=== PATIENT | male | born 1990 | race Caucasian/White ===

== ENCOUNTER 2017-08-21 11:17 | Emergency (ER) | payer OTHER | END 2017-08-21 18:30 | disposition home or self-care (01) | LOC: FTE 11:17 | DX: T82.898A Other specified complication of vascular prosthetic devices, implants and grafts, initial encounter (principal); F17.210 Nicotine dependence, cigarettes, uncomplicated; Y82.8 Other medical devices associated with adverse incidents | CPT/HCPCS: 71045; 99283-25 ==

== ENCOUNTER 2017-08-24 10:18 | Emergency (ER) | payer OTHER ==
[2017-08-24] MEDS: LIDOCAINE 1% (MPF) 5 ML VIAL SC (14:16)
[2017-08-24] MEDS: ENOXAPARIN 100 MG/ML SYG SC (16:45)
== END 2017-08-24 18:04 | disposition home or self-care (01) ==
LOC: FTE 10:18 → E/R 18:04
DX: I82.A11 Acute embolism and thrombosis of right axillary vein (principal); F17.210 Nicotine dependence, cigarettes, uncomplicated; Y82.8 Other medical devices associated with adverse incidents; Z79.01 Long term (current) use of anticoagulants
CPT/HCPCS: 93971; 99284-25

== ENCOUNTER 2017-08-29 14:31 | Inpatient (IN) | payer OTHER ==
[2017-08-29] MEDS: HYDROCODONE/APAP (5/325) TAB PO (19:00)
[2017-08-29] MEDS: MEROPENEM 1 GM/50ML(PMX) 50 ML IVPB (21:27)
[2017-08-29] MEDS: SODIUM CHLORIDE 0.9% 1L BAG IV* (21:27)
[2017-08-29 21:28] LABS: ADD MAN DIFF? NO
[2017-08-29 21:31] LABS: ABNORMAL IP MESSAGE 1; BASOPHILS % 0.3 % (0.0-2.0); EOSINOPHILS # 0.1 10^3/ul (0.0-0.5); EOSINOPHILS % 1.8 % (0.0-7.0); HEMATOCRIT 39.4 % (42.0-52.0); HEMOGLOBIN 12.3 g/dl (14.0-18.0); LYMPHOCYTES # 2.1 10^3/ul (0.8-2.9); MEAN CORPUSCULAR HEMOGLOBIN 26.1 pg (29.0-33.0); MEAN CORPUSCULAR HGB CONC 31.2 g/dl (32.0-37.0); MEAN CORPUSCULAR VOLUME 83.5 fl (82.0-101.0); MEAN PLATELET VOLUME 9.4 fl (7.4-10.4); MONOCYTE # 0.8 10^3/ul (0.3-0.9); NEUTROPHIL # 0.9 10^3/ul (1.6-7.5); NEUTROPHILS % 23.5 % (39.0-77.0); PLATELET COUNT 288 10^3/UL (140-415); POSITIVE DIFF @See below; RED BLOOD COUNT 4.72 10^6/ul (4.70-6.10); RED CELL DISTRIBUTION WIDTH 15.2 % (11.5-14.5)
[2017-08-29 21:31] LABS: WHITE BLOOD COUNT 3.9 10^3/ul (4.8-10.8)
[2017-08-29 21:37] LABS: LYMPHOCYTES % 54.2 % (15.0-51.0); MONOCYTES % 19.9 % (0.0-11.0)
[2017-08-29 21:55] LABS: ALANINE AMINOTRANSFERASE 32 IU/L (13-69); ALBUMIN 3.5 g/dl (3.3-4.9); ALBUMIN/GLOBULIN RATIO 0.74; ALKALINE PHOSPHATASE 132 IU/L (42-121); ANION GAP 14 (8-16); ASPARTATE AMINO TRANSFERASE 26 IU/L (15-46); BILIRUBIN,INDIRECT 0.4 mg/dl (0-1.1); BILIRUBIN,TOTAL 0.4 mg/dl (0.2-1.3); BLOOD UREA NITROGEN 12 mg/dl (7-20); CALCIUM 8.6 mg/dl (8.4-10.2); CARBON DIOXIDE 27 mmol/L (21-31); CHLORIDE 102 mmol/L (97-110); CREATININE 0.62 mg/dl (0.61-1.24); GLUCOSE 107 mg/dl (70-220); SODIUM 140 mmol/L (135-144); TOTAL PROTEIN 8.2 g/dl (6.1-8.1)
[2017-08-29] MEDS ORDERED: ACETAMINOPHEN 325 MG TAB PO (22:00)
[2017-08-29 22:16] LABS: POTASSIUM 2.9 mmol/L (3.5-5.1)
[2017-08-29] MEDS: HYDROCODONE/APAP (10/325) TAB PO (22:17)
[2017-08-29] MEDS: POTASSIUM CHLORIDE (SR) 20 MEQ TAB PO (22:39)
[2017-08-29] MEDS: VANCOMYCIN 1 GM (PMX) 250 ML IVPB (22:39)
[2017-08-30] MEDS ORDERED: VANCOMYCIN IV PER PHARMACY XX
[2017-08-30] MEDS: morphine 2 MG INJ IV ×4 (00:01→10:41)
[2017-08-30] MEDS: ONDANSETRON 4 MG INJ IV (00:01)
[2017-08-30] MEDS ORDERED: PENDING SANTYL ORDER FOR WOUND CARE XX (01:00)
[2017-08-30] MEDS: VANCOMYCIN 1 GM 250 ML IVPB (05:25)
[2017-08-30] MEDS: GUAIFENESIN/CODEINE 5ML CUP PO (10:41)
[2017-08-30] MEDS: HYDROmorphONE 1 MG/ML SYG IV ×4 (13:16→21:58)
[2017-08-30] MEDS: VANCOMYCIN 1.25 GM in SOD CHLORIDE 0.45% 250 ML IVPB (17:04)
[2017-08-30] MEDS: HYDROmorphONE 0.5 MG/0.5 ML SYG IV (19:53)
[2017-08-31] MEDS: HYDROmorphONE 1 MG/ML SYG IV ×10 (00:09→22:27)
[2017-08-31] MEDS ORDERED: COLLAGENASE 30 GM TUBE TOP (03:00)
[2017-08-31] MEDS: VANCOMYCIN 1.25 GM in SOD CHLORIDE 0.45% 250 ML IVPB (04:43)
[2017-08-31] MEDS: COLLAGENASE 30 GM TUBE TOP (09:00)
[2017-08-31] MEDS ORDERED: ENOXAPARIN 100 MG/ML SYG SC (12:00)
[2017-08-31] MEDS ORDERED: oxyCODONE 5 MG TAB PO (14:30)
[2017-08-31] MEDS ORDERED: HYDROCODONE/APAP (5/325) TAB PO (16:00)
[2017-08-31] MEDS ORDERED: morphine 2 MG INJ IV (16:00)
[2017-08-31] MEDS ORDERED: morphine LIQ (10 MG/5 ML) CUP PO (16:00)
[2017-08-31] MEDS ORDERED: LIDOCAINE 1% (MPF) 5 ML VIAL SC (16:30)
[2017-08-31] MEDS: ZYVOX 600 MG TAB PO (20:57)
[2017-08-31] MEDS: ENOXAPARIN 80 MG/0.8 ML SYG SC (21:00)
[2017-09-01] MEDS: HYDROmorphONE 1 MG/ML SYG IV ×6 (02:33→22:57)
[2017-09-01] MEDS: ZYVOX 600 MG TAB PO ×2 (08:57→20:41)
[2017-09-01] MEDS: ENOXAPARIN 80 MG/0.8 ML SYG SC ×2 (08:59→20:41)
[2017-09-01] MEDS: COLLAGENASE 30 GM TUBE TOP ×2 (09:00→15:30)
[2017-09-01] MEDS: GUAIFENESIN/CODEINE 5ML CUP PO (18:54)
[2017-09-02] MEDS: HYDROmorphONE 1 MG/ML SYG IV ×6 (03:11→23:33)
[2017-09-02] MEDS: COLLAGENASE 30 GM TUBE TOP ×2 (09:00→12:35)
[2017-09-02] MEDS: ENOXAPARIN 80 MG/0.8 ML SYG SC ×3 (09:00→22:17)
[2017-09-02] MEDS: ZYVOX 600 MG TAB PO ×2 (09:05→22:18)
[2017-09-02] MEDS: GUAIFENESIN/CODEINE 5ML CUP PO ×2 (12:46→23:35)
[2017-09-02] MEDS: NYSTATIN 30 GM POWDER BTL TOP (22:17)
[2017-09-03] MEDS: HYDROmorphONE 1 MG/ML SYG IV ×5 (03:25→22:04)
[2017-09-03] MEDS: ENOXAPARIN 80 MG/0.8 ML SYG SC ×2 (08:16→21:00)
[2017-09-03] MEDS: NYSTATIN 30 GM POWDER BTL TOP ×2 (08:16→22:08)
[2017-09-03] MEDS: ZYVOX 600 MG TAB PO ×2 (08:16→22:08)
[2017-09-03] MEDS: COLLAGENASE 30 GM TUBE TOP (08:17)
[2017-09-03] MEDS ORDERED: MIDAZOLAM 1 MG/ML 2 ML INJ (20:44)
[2017-09-03] MEDS ORDERED: ONDANSETRON 4 MG INJ (20:45)
[2017-09-03] MEDS ORDERED: hydrALAzine 20 MG INJ IV (21:00)
[2017-09-03] MEDS ORDERED: IPRATROPIUM (NEB) 0.5 MG/2.5 ML AMP HHN (21:00)
[2017-09-03] MEDS ORDERED: ALBUTEROL 0.083% (NEB) 2.5 MG/3 ML AMP HHN (21:00)
[2017-09-03] MEDS ORDERED: LABETALOL HCL 20MG INJ IV (21:00)
[2017-09-03] MEDS ORDERED: EPHEDrine SULFATE 50 MG/5 ML SYG IV (21:00)
[2017-09-03] MEDS ORDERED: MIDAZOLAM 1 MG/ML 2 ML INJ IV (21:00)
[2017-09-03] MEDS ORDERED: ONDANSETRON 4 MG INJ IV (21:00)
[2017-09-03] MEDS ORDERED: HYDROmorphONE (0.2 MG/ML) 10ML SYG IV ×3 (21:00)
[2017-09-03] MEDS ORDERED: TRIMETHOBENZAMIDE 100 MG/ML VIAL IM (21:00)
[2017-09-03] MEDS ORDERED: DIPHENHYDRAMINE 50 MG INJ IV (21:00)
[2017-09-03] MEDS ORDERED: FENTAnyl 50 MCG/ML VIAL IV ×2 (21:00)
[2017-09-03] MEDS ORDERED: MEPERIDINE 25 MG INJ IV (21:00)
[2017-09-03] MEDS: POLYMYXIN/BACITRACIN 1L IRRIG (21:08)
[2017-09-03] MEDS: FENTAnyl 50 MCG/ML VIAL IV (21:36)
[2017-09-04] MEDS: HYDROmorphONE 1 MG/ML SYG IV ×5 (06:45→22:40)
[2017-09-04] MEDS: ZYVOX 600 MG TAB PO ×2 (08:20→22:39)
[2017-09-04] MEDS: NYSTATIN 30 GM POWDER BTL TOP ×2 (08:24→22:40)
[2017-09-04] MEDS: COLLAGENASE 30 GM TUBE TOP (09:00)
[2017-09-04] MEDS: ENOXAPARIN 80 MG/0.8 ML SYG SC ×2 (09:00→21:00)
[2017-09-04] MEDS: GUAIFENESIN/CODEINE 5ML CUP PO ×2 (12:13→18:44)
[2017-09-05] MEDS: HYDROmorphONE 1 MG/ML SYG IV ×6 (02:40→22:36)
[2017-09-05] MEDS: ZYVOX 600 MG TAB PO ×2 (08:57→21:07)
[2017-09-05] MEDS: GUAIFENESIN/CODEINE 5ML CUP PO ×2 (08:58→21:06)
[2017-09-05] MEDS: ENOXAPARIN 80 MG/0.8 ML SYG SC ×2 (08:59→21:00)
[2017-09-05] MEDS: COLLAGENASE 30 GM TUBE TOP (09:00)
[2017-09-05] MEDS: NYSTATIN 30 GM POWDER BTL TOP ×2 (14:00→21:08)
[2017-09-05] MEDS ORDERED: BISACODYL (EC) 5 MG TAB PO (18:30)
[2017-09-05] MEDS ORDERED: DOCUSATE SODIUM 100 MG CAP PO (19:57)
[2017-09-05] MEDS: DOCUSATE SODIUM 100 MG CAP PO (21:00)
[2017-09-06] MEDS: HYDROmorphONE 1 MG/ML SYG IV ×6 (02:41→23:43)
[2017-09-06] MEDS: GUAIFENESIN/CODEINE 5ML CUP PO (03:02)
[2017-09-06] MEDS: COLLAGENASE 30 GM TUBE TOP ×2 (09:00→15:37)
[2017-09-06] MEDS: ENOXAPARIN 80 MG/0.8 ML SYG SC ×2 (09:00→21:00)
[2017-09-06] MEDS: DOCUSATE SODIUM 100 MG CAP PO ×2 (09:00→21:00)
[2017-09-06] MEDS: ZYVOX 600 MG TAB PO ×2 (10:00→21:47)
[2017-09-06] MEDS: NYSTATIN 30 GM POWDER BTL TOP ×2 (10:01→21:00)
[2017-09-06] MEDS: TRIMETHOPRIM/SULFAMETHOX (DS) TAB PO (21:47)
[2017-09-07] MEDS: HYDROmorphONE 1 MG/ML SYG IV ×3 (03:43→11:44)
[2017-09-07] MEDS: ZYVOX 600 MG TAB PO ×2 (08:30→20:21)
[2017-09-07] MEDS: TRIMETHOPRIM/SULFAMETHOX (DS) TAB PO ×2 (08:31→20:21)
[2017-09-07] MEDS: COLLAGENASE 30 GM TUBE TOP (08:32)
[2017-09-07] MEDS: DOCUSATE SODIUM 100 MG CAP PO ×2 (08:32→20:21)
[2017-09-07] MEDS: NYSTATIN 30 GM POWDER BTL TOP ×2 (08:32→20:23)
[2017-09-07] MEDS: ENOXAPARIN 80 MG/0.8 ML SYG SC ×2 (08:32→20:20)
[2017-09-07] MEDS: HYDROmorphONE 2 MG/ML SYG IV ×2 (15:51→20:20)
[2017-09-08] MEDS: HYDROmorphONE 2 MG/ML SYG IV ×3 (00:18→09:11)
[2017-09-08] MEDS: COLLAGENASE 30 GM TUBE TOP ×2 (09:00→09:15)
[2017-09-08] MEDS: ENOXAPARIN 80 MG/0.8 ML SYG SC ×2 (09:00→21:20)
[2017-09-08] MEDS: NYSTATIN 30 GM POWDER BTL TOP ×2 (09:14→21:24)
[2017-09-08] MEDS: TRIMETHOPRIM/SULFAMETHOX (DS) TAB PO ×2 (09:15→21:19)
[2017-09-08] MEDS: ZYVOX 600 MG TAB PO ×2 (09:15→21:19)
[2017-09-08] MEDS: DOCUSATE SODIUM 100 MG CAP PO ×2 (09:15→21:19)
[2017-09-08] MEDS: HYDROmorphONE 0.5 MG/0.5 ML SYG IV ×3 (13:09→21:12)
[2017-09-09] MEDS: HYDROmorphONE 0.5 MG/0.5 ML SYG IV ×6 (01:13→21:06)
[2017-09-09] MEDS: COLLAGENASE 30 GM TUBE TOP (09:00)
[2017-09-09] MEDS: ENOXAPARIN 80 MG/0.8 ML SYG SC ×2 (09:00→21:00)
[2017-09-09] MEDS: ZYVOX 600 MG TAB PO ×2 (09:08→21:12)
[2017-09-09] MEDS: DOCUSATE SODIUM 100 MG CAP PO ×2 (09:09→21:12)
[2017-09-09] MEDS: TRIMETHOPRIM/SULFAMETHOX (DS) TAB PO ×2 (09:09→21:12)
[2017-09-09] MEDS: NYSTATIN 30 GM POWDER BTL TOP ×2 (09:14→21:12)
[2017-09-10] MEDS: HYDROmorphONE 0.5 MG/0.5 ML SYG IV ×5 (01:10→23:22)
[2017-09-10] MEDS ORDERED: HYDROmorphONE 4 MG TAB PO (04:30)
[2017-09-10] MEDS: COLLAGENASE 30 GM TUBE TOP ×4 (09:00→18:34)
[2017-09-10] MEDS: ENOXAPARIN 80 MG/0.8 ML SYG SC ×2 (09:00→20:43)
[2017-09-10] MEDS: ZYVOX 600 MG TAB PO ×2 (09:17→20:43)
[2017-09-10] MEDS: TRIMETHOPRIM/SULFAMETHOX (DS) TAB PO ×2 (09:17→20:43)
[2017-09-10] MEDS: DOCUSATE SODIUM 100 MG CAP PO ×2 (09:17→20:43)
[2017-09-10] MEDS: NYSTATIN 30 GM POWDER BTL TOP ×2 (09:18→20:45)
[2017-09-11] MEDS: HYDROmorphONE 0.5 MG/0.5 ML SYG IV (03:23)
[2017-09-11] MEDS: DOCUSATE SODIUM 100 MG CAP PO ×2 (08:50→21:11)
[2017-09-11] MEDS: ENOXAPARIN 80 MG/0.8 ML SYG SC ×2 (08:51→21:00)
[2017-09-11] MEDS: TRIMETHOPRIM/SULFAMETHOX (DS) TAB PO ×2 (08:51→21:11)
[2017-09-11] MEDS: NYSTATIN 30 GM POWDER BTL TOP ×2 (08:51→21:12)
[2017-09-11] MEDS: ZYVOX 600 MG TAB PO ×2 (08:51→21:11)
[2017-09-11] MEDS: COLLAGENASE 30 GM TUBE TOP (08:52)
[2017-09-11] MEDS: HYDROmorphONE 4 MG TAB PO ×3 (11:42→20:03)
[2017-09-12] MEDS: HYDROmorphONE 4 MG TAB PO ×4 (06:34→20:50)
[2017-09-12] MEDS: TRIMETHOPRIM/SULFAMETHOX (DS) TAB PO ×2 (08:37→20:46)
[2017-09-12] MEDS: ENOXAPARIN 80 MG/0.8 ML SYG SC ×2 (08:37→20:48)
[2017-09-12] MEDS: ZYVOX 600 MG TAB PO ×2 (08:37→20:46)
[2017-09-12] MEDS: GUAIFENESIN/CODEINE 5ML CUP PO (08:37)
[2017-09-12] MEDS: DOCUSATE SODIUM 100 MG CAP PO ×2 (08:37→20:46)
[2017-09-12] MEDS: NYSTATIN 30 GM POWDER BTL TOP ×2 (08:38→20:48)
[2017-09-12] MEDS: COLLAGENASE 30 GM TUBE TOP ×2 (13:00)
[2017-09-13] MEDS: HYDROmorphONE 4 MG TAB PO ×4 (00:58→20:43)
[2017-09-13] MEDS: TRIMETHOPRIM/SULFAMETHOX (DS) TAB PO ×2 (08:51→20:43)
[2017-09-13] MEDS: ZYVOX 600 MG TAB PO ×2 (08:51→20:43)
[2017-09-13] MEDS: NYSTATIN 30 GM POWDER BTL TOP ×2 (09:00→20:43)
[2017-09-13] MEDS: COLLAGENASE 30 GM TUBE TOP (09:00)
[2017-09-13] MEDS: ENOXAPARIN 80 MG/0.8 ML SYG SC ×2 (09:00→20:47)
[2017-09-13] MEDS: DOCUSATE SODIUM 100 MG CAP PO ×2 (09:00→20:43)
[2017-09-14] MEDS: HYDROmorphONE 4 MG TAB PO ×5 (02:01→20:25)
[2017-09-14] MEDS: ENOXAPARIN 80 MG/0.8 ML SYG SC (09:00)
[2017-09-14] MEDS: COLLAGENASE 30 GM TUBE TOP ×2 (09:00→11:00)
[2017-09-14] MEDS: DOCUSATE SODIUM 100 MG CAP PO (09:00)
[2017-09-14] MEDS: ZYVOX 600 MG TAB PO (11:00)
[2017-09-14] MEDS: TRIMETHOPRIM/SULFAMETHOX (DS) TAB PO (11:00)
[2017-09-14] MEDS: NYSTATIN 30 GM POWDER BTL TOP (11:01)
== END 2017-09-14 20:37 | disposition home health service (06) | DRG 579 ==
LOC: E/R 14:31 → PP2 21:55
PROC: 0HBMXZZ Excision of Right Foot Skin, External Approach (ICD-10-PCS; principal; 2017-09-03 20:51)
PROC: 0QBG0ZX Excision of Right Tibia, Open Approach, Diagnostic (ICD-10-PCS; 2017-09-03 20:51)
DX: L03.115 Cellulitis of right lower limb (principal); G82.50 Quadriplegia, unspecified; I82.621 Acute embolism and thrombosis of deep veins of right upper extremity; M86.8X7 Other osteomyelitis, ankle and foot; L97.314 Non-pressure chronic ulcer of right ankle with necrosis of bone; E66.01 Morbid (severe) obesity due to excess calories; Q05.0 Cervical spina bifida with hydrocephalus; N31.9 Neuromuscular dysfunction of bladder, unspecified; F32.9 Major depressive disorder, single episode, unspecified; E87.6 Hypokalemia; Z91.14 Patient's other noncompliance with medication regimen; Z98.2 Presence of cerebrospinal fluid drainage device; Z68.28 Body mass index [BMI] 28.0-28.9, adult; I73.9 Peripheral vascular disease, unspecified; Z79.01 Long term (current) use of anticoagulants; K56.41 Fecal impaction; B95.61 Methicillin susceptible Staphylococcus aureus infection as the cause of diseases classified elsewhere; Z16.21 Resistance to vancomycin; B95.2 Enterococcus as the cause of diseases classified elsewhere; B96.20 Unspecified Escherichia coli [E. coli] as the cause of diseases classified elsewhere; B96.89 Other specified bacterial agents as the cause of diseases classified elsewhere
CPT/HCPCS: 36415; 73610-RT; 73630; 80053; 85025; 87040; 87070; 87075; 87102; 87116; 93971; 96374; 96375; 99285-25

== ENCOUNTER 2017-10-08 12:49 | Emergency (ER) | payer OTHER ==
[2017-10-08 17:30] LABS: ADD MAN DIFF? NO
[2017-10-08 17:36] LABS: WHITE BLOOD COUNT 13.7 10^3/ul (4.8-10.8)
[2017-10-08 17:36] LABS: BASOPHILS % 0.3 % (0.0-2.0); EOSINOPHILS # 0.3 10^3/ul (0.0-0.5); EOSINOPHILS % 2.3 % (0.0-7.0); HEMATOCRIT 45.4 % (42.0-52.0); HEMOGLOBIN 14.4 g/dl (14.0-18.0); LYMPHOCYTES # 3.9 10^3/ul (0.8-2.9); LYMPHOCYTES % 28.2 % (15.0-51.0); MEAN CORPUSCULAR HEMOGLOBIN 26.9 pg (29.0-33.0); MEAN CORPUSCULAR HGB CONC 31.7 g/dl (32.0-37.0); MEAN CORPUSCULAR VOLUME 84.9 fl (82.0-101.0); MEAN PLATELET VOLUME 9.2 fl (7.4-10.4); MONOCYTE # 0.9 10^3/ul (0.3-0.9); MONOCYTES % 6.3 % (0.0-11.0); NEUTROPHIL # 8.6 10^3/ul (1.6-7.5); NEUTROPHILS % 62.5 % (39.0-77.0); PLATELET COUNT 445 10^3/UL (140-415); RED BLOOD COUNT 5.35 10^6/ul (4.70-6.10); RED CELL DISTRIBUTION WIDTH 16.7 % (11.5-14.5)
[2017-10-08 17:56] LABS: ALANINE AMINOTRANSFERASE 37 IU/L (13-69); ALBUMIN 4.4 g/dl (3.3-4.9); ALBUMIN/GLOBULIN RATIO 0.89; ALKALINE PHOSPHATASE 164 IU/L (42-121); ANION GAP 20 (8-16); ASPARTATE AMINO TRANSFERASE 24 IU/L (15-46); BILIRUBIN,INDIRECT 0.3 mg/dl (0-1.1); BILIRUBIN,TOTAL 0.3 mg/dl (0.2-1.3); BLOOD UREA NITROGEN 19 mg/dl (7-20); CALCIUM 9.3 mg/dl (8.4-10.2); CARBON DIOXIDE 27 mmol/L (21-31); CHLORIDE 107 mmol/L (97-110); CREATININE 0.65 mg/dl (0.61-1.24); GLUCOSE 93 mg/dl (70-220); LIPASE 106 U/L (23-300); POTASSIUM 4.1 mmol/L (3.5-5.1); SODIUM 150 mmol/L (135-144); TOTAL PROTEIN 9.3 g/dl (6.1-8.1)
[2017-10-08 18:19] LABS: ADD UMIC YES; UR ASCORBIC ACID NEGATIVE (NEGATIVE); UR BACTERIA FEW /HPF (NONE SEEN); UR BILIRUBIN (Dip) NEGATIVE (NEGATIVE); UR BLOOD (Dip) 1+ mg/dL (NEGATIVE); UR CLARITY CLOUDY (CLEAR); UR COLOR YELLOW (YELLOW); UR GLUCOSE (Dip) NEGATIVE (NEGATIVE); UR KETONES (Dip) TRACE mg/dL (NEGATIVE); UR LEUKOCYTE ESTERASE (Dip) 3+ Leu/ul (NEGATIVE); UR MUCUS FEW /HPF (NONE SEEN); UR NITRITE (Dip) POSITIVE (NEGATIVE); UR NONSQUAMOUS EPITHELIAL CELL 3 /HPF (NONE SEEN); UR RBC 32 /HPF (0-5); UR SPECIFIC GRAVITY (Dip) 1.024 (1.003-1.030); UR SQUAMOUS EPITHELIAL CELL FEW /HPF (FEW); UR TOTAL PROTEIN (Dip) 2+ mg/dl (NEGATIVE); UR UROBILINOGEN (Dip) NEGATIVE (NEGATIVE); UR WBC > 182 /HPF (0-5)
[2017-10-08] MEDS: morphine 4 MG/ML VIAL IV (19:08)
[2017-10-08] MEDS: CEFTRIAXONE 1 GM/50 ML (PMX) 50 ML IVPB (19:09)
[2017-10-08] MEDS: predniSONE 20 MG TAB PO (19:38)
== END 2017-10-08 19:51 | disposition home or self-care (01) ==
LOC: E/R 12:49
DX: N30.00 Acute cystitis without hematuria (principal); M54.31 Sciatica, right side; D72.823 Leukemoid reaction; D47.3 Essential (hemorrhagic) thrombocythemia; E87.0 Hyperosmolality and hypernatremia; R40.2142 Coma scale, eyes open, spontaneous, at arrival to emergency department; R40.2252 Coma scale, best verbal response, oriented, at arrival to emergency department; R40.2362 Coma scale, best motor response, obeys commands, at arrival to emergency department; Z91.040 Latex allergy status
CPT/HCPCS: 36415; 80053; 81001; 83690; 85025; 93971; 96374; 96375; 99285-25

== ENCOUNTER 2017-10-12 14:22 | Emergency (ER) | payer OTHER ==
[2017-10-12 15:39] LABS: URINE PH (Dip) POC 6.5 (5.0-8.5)
[2017-10-12 15:39] LABS: URINE BLOOD (Dip) POC Trace-intact (NEGATIVE); URINE GLUCOSE (Dip) POC Negative (NEGATIVE); URINE KETONES (Dip) POC Negative (NEGATIVE); URINE LEUKOCYTE EST (Dip) POC Negative (NEGATIVE); URINE NITRITE (Dip) POC Negative (NEGATIVE); URINE TOTAL PROTEIN POC 1+ (NEGATIVE)
[2017-10-12 16:14] LABS: ADD UMIC YES; UR ASCORBIC ACID NEGATIVE (NEGATIVE); UR BILIRUBIN (Dip) NEGATIVE (NEGATIVE); UR BLOOD (Dip) NEGATIVE (NEGATIVE); UR CLARITY SLIGHTLY CLOUDY (CLEAR); UR COLOR YELLOW (YELLOW); UR GLUCOSE (Dip) NEGATIVE (NEGATIVE); UR KETONES (Dip) NEGATIVE (NEGATIVE); UR LEUKOCYTE ESTERASE (Dip) NEGATIVE Leu/ul (NEGATIVE); UR NITRITE (Dip) NEGATIVE (NEGATIVE); UR NONSQUAMOUS EPITHELIAL CELL 12 /HPF (NONE SEEN); UR RBC 11 /HPF (0-5); UR SPECIFIC GRAVITY (Dip) 1.019 (1.003-1.030); UR SQUAMOUS EPITHELIAL CELL MODERATE /HPF (FEW); UR TOTAL PROTEIN (Dip) 2+ mg/dl (NEGATIVE); UR UROBILINOGEN (Dip) NEGATIVE (NEGATIVE); UR WBC 72 /HPF (0-5)
[2017-10-12] MEDS: traMADol 50 MG TAB PO (16:22)
== END 2017-10-12 17:15 | disposition home or self-care (01) ==
LOC: E/R 14:22
DX: N39.0 Urinary tract infection, site not specified (principal); R40.2142 Coma scale, eyes open, spontaneous, at arrival to emergency department; R40.2252 Coma scale, best verbal response, oriented, at arrival to emergency department; R40.2362 Coma scale, best motor response, obeys commands, at arrival to emergency department; Z91.040 Latex allergy status
CPT/HCPCS: 81001; 81003; 87086; 99284

== ENCOUNTER 2017-10-23 14:25 | Emergency (ER) | payer OTHER ==
[2017-10-23 16:21] LABS: ADD UMIC YES; UR ASCORBIC ACID NEGATIVE (NEGATIVE); UR BILIRUBIN (Dip) NEGATIVE (NEGATIVE); UR BLOOD (Dip) NEGATIVE (NEGATIVE); UR CLARITY CLEAR (CLEAR); UR COLOR YELLOW (YELLOW); UR GLUCOSE (Dip) NEGATIVE (NEGATIVE); UR KETONES (Dip) NEGATIVE (NEGATIVE); UR LEUKOCYTE ESTERASE (Dip) NEGATIVE Leu/ul (NEGATIVE); UR NITRITE (Dip) NEGATIVE (NEGATIVE); UR NONSQUAMOUS EPITHELIAL CELL 2 /HPF (NONE SEEN); UR RBC 2 /HPF (0-5); UR SPECIFIC GRAVITY (Dip) 1.014 (1.003-1.030); UR TOTAL PROTEIN (Dip) 1+ mg/dl (NEGATIVE); UR UROBILINOGEN (Dip) NEGATIVE (NEGATIVE); UR WBC 12 /HPF (0-5)
[2017-10-23] MEDS: ONDANSETRON 4 MG INJ IV (16:23)
[2017-10-23] MEDS: morphine 4 MG/ML VIAL IV (16:23)
[2017-10-23] MEDS: SOD CHLORIDE 0.9% 1,000 ML IV (16:23)
== END 2017-10-23 19:01 | disposition home or self-care (01) ==
LOC: FTE 14:25
DX: N31.9 Neuromuscular dysfunction of bladder, unspecified (principal); Z91.040 Latex allergy status
CPT/HCPCS: 51702; 74176; 81001; 87086; 96374; 96375; 99285-25

== ENCOUNTER 2017-11-03 13:26 | Emergency (ER) | payer OTHER ==
[2017-11-03 15:27] LABS: ADD UMIC YES; UR ASCORBIC ACID NEGATIVE (NEGATIVE); UR BACTERIA MODERATE /HPF (NONE SEEN); UR BILIRUBIN (Dip) NEGATIVE (NEGATIVE); UR BLOOD (Dip) 1+ mg/dL (NEGATIVE); UR CLARITY CLOUDY (CLEAR); UR COLOR YELLOW (YELLOW); UR GLUCOSE (Dip) NEGATIVE (NEGATIVE); UR KETONES (Dip) NEGATIVE (NEGATIVE); UR LEUKOCYTE ESTERASE (Dip) 2+ Leu/ul (NEGATIVE); UR MUCUS FEW /HPF (NONE SEEN); UR NITRITE (Dip) POSITIVE (NEGATIVE); UR NONSQUAMOUS EPITHELIAL CELL 7 /HPF (NONE SEEN); UR RBC 12 /HPF (0-5); UR SPECIFIC GRAVITY (Dip) 1.017 (1.003-1.030); UR SQUAMOUS EPITHELIAL CELL MODERATE /HPF (FEW); UR TOTAL PROTEIN (Dip) 1+ mg/dl (NEGATIVE); UR UROBILINOGEN (Dip) NEGATIVE (NEGATIVE); UR WBC 84 /HPF (0-5)
[2017-11-03] MEDS: morphine (ER) 30 MG TAB PO (16:36)
== END 2017-11-03 16:50 | disposition home or self-care (01) ==
LOC: FTE 13:26
DX: N39.0 Urinary tract infection, site not specified (principal); B95.2 Enterococcus as the cause of diseases classified elsewhere
CPT/HCPCS: 81001; 99284

== ENCOUNTER 2017-11-13 12:19 | Emergency (ER) | payer OTHER ==
[2017-11-13] MEDS: CEFTRIAXONE 1 GM INJ IM (12:53)
[2017-11-13] MEDS: LIDOCAINE 1% (MDV) 10 ML INJ INFIL (12:53)
[2017-11-13 13:11] LABS: ADD UMIC YES; UR ASCORBIC ACID NEGATIVE (NEGATIVE); UR BACTERIA FEW /HPF (NONE SEEN); UR BILIRUBIN (Dip) NEGATIVE (NEGATIVE); UR BLOOD (Dip) 1+ mg/dL (NEGATIVE); UR CLARITY SLIGHTLY CLOUDY (CLEAR); UR COLOR YELLOW (YELLOW); UR GLUCOSE (Dip) NEGATIVE (NEGATIVE); UR KETONES (Dip) NEGATIVE (NEGATIVE); UR LEUKOCYTE ESTERASE (Dip) 3+ Leu/ul (NEGATIVE); UR NITRITE (Dip) NEGATIVE (NEGATIVE); UR RBC 10 /HPF (0-5); UR SPECIFIC GRAVITY (Dip) 1.023 (1.003-1.030); UR SQUAMOUS EPITHELIAL CELL FEW /HPF (FEW); UR TOTAL PROTEIN (Dip) 1+ mg/dl (NEGATIVE); UR UROBILINOGEN (Dip) NEGATIVE (NEGATIVE); UR WBC 141 /HPF (0-5)
[2017-11-13] MEDS: morphine 2 MG INJ IM (13:17)
== END 2017-11-13 13:55 | disposition home or self-care (01) ==
LOC: FTE 12:19
DX: N39.0 Urinary tract infection, site not specified (principal); Z91.040 Latex allergy status
CPT/HCPCS: 81001; 87086; 96372; 99284-25

== ENCOUNTER 2017-11-29 11:33 | Emergency (ER) | payer OTHER ==
[2017-11-29 13:16] LABS: ADD UMIC YES; UR ASCORBIC ACID 20 mg/dL (NEGATIVE); UR BACTERIA FEW /HPF (NONE SEEN); UR BILIRUBIN (Dip) NEGATIVE (NEGATIVE); UR BLOOD (Dip) NEGATIVE (NEGATIVE); UR CLARITY CLOUDY (CLEAR); UR COLOR YELLOW (YELLOW); UR GLUCOSE (Dip) NEGATIVE (NEGATIVE); UR KETONES (Dip) NEGATIVE (NEGATIVE); UR LEUKOCYTE ESTERASE (Dip) 2+ Leu/ul (NEGATIVE); UR MUCUS FEW /HPF (NONE SEEN); UR NITRITE (Dip) POSITIVE (NEGATIVE); UR NONSQUAMOUS EPITHELIAL CELL 6 /HPF (NONE SEEN); UR RBC 9 /HPF (0-5); UR SPECIFIC GRAVITY (Dip) 1.018 (1.003-1.030); UR SQUAMOUS EPITHELIAL CELL FEW /HPF (FEW); UR TOTAL PROTEIN (Dip) 1+ mg/dl (NEGATIVE); UR UROBILINOGEN (Dip) NEGATIVE (NEGATIVE); UR WBC > 182 /HPF (0-5)
[2017-11-29] MEDS: CEFTRIAXONE 1 GM INJ IM (14:45)
== END 2017-11-29 14:47 | disposition left against medical advice (07) ==
LOC: FTE 14:47
DX: N39.0 Urinary tract infection, site not specified (principal); Z91.040 Latex allergy status
CPT/HCPCS: 81001; 87086; 99283

== ENCOUNTER 2017-12-04 11:46 | Emergency (ER) | payer OTHER ==
[2017-12-04] MEDS: HYDROCODONE/APAP (10/325) TAB PO (14:49)
== END 2017-12-04 15:15 | disposition home or self-care (01) ==
LOC: E/R 11:46
DX: L97.919 Non-pressure chronic ulcer of unspecified part of right lower leg with unspecified severity (principal); R10.9 Unspecified abdominal pain; Z91.040 Latex allergy status
CPT/HCPCS: 99283; Z7502

== ENCOUNTER 2017-12-11 09:57 | Emergency (ER) | payer OTHER ==
[2017-12-11] MEDS: HYDROCODONE/APAP (10/325) TAB PO (11:57)
== END 2017-12-11 13:22 | disposition home or self-care (01) ==
LOC: E/R 09:57
DX: L97.919 Non-pressure chronic ulcer of unspecified part of right lower leg with unspecified severity (principal); L89.159 Pressure ulcer of sacral region, unspecified stage; G82.20 Paraplegia, unspecified; Q05.9 Spina bifida, unspecified; R40.2142 Coma scale, eyes open, spontaneous, at arrival to emergency department; R40.2362 Coma scale, best motor response, obeys commands, at arrival to emergency department; Z91.040 Latex allergy status
CPT/HCPCS: 99283-25; Z7502

== ENCOUNTER 2017-12-15 21:53 | Inpatient (IN) | payer OTHER ==
[2017-12-15] MEDS ORDERED: ONDANSETRON 4 MG INJ IV (23:00)
[2017-12-15] MEDS: morphine 2 MG INJ IV (23:13)
[2017-12-16] MEDS ORDERED: NACL 0.9% 3 ML SYG IV (02:00)
[2017-12-16] MEDS ORDERED: traMADol 50 MG TAB PO (02:00)
[2017-12-16] MEDS ORDERED: PENDING SANTYL ORDER FOR WOUND CARE XX (02:00)
[2017-12-16] MEDS ORDERED: ALBUTEROL/IPRATROPIUM (NEB) 3 ML AMP HHN (02:00)
[2017-12-16] MEDS: morphine 2 MG INJ IV ×3 (03:42→12:05)
[2017-12-16] MEDS: MEROPENEM 500MG/50 ML (PMX) 50 ML IVPB ×2 (09:01→20:09)
[2017-12-16] MEDS: HEPARIN 5,000 UNIT/0.5 ML VIAL SC ×2 (09:02→20:11)
[2017-12-16] MEDS: FAMOTIDINE 20 MG TAB PO ×2 (09:02→20:09)
[2017-12-16 09:56] LABS: ADD UMIC YES; UR ASCORBIC ACID 40 mg/dL (NEGATIVE); UR BILIRUBIN (Dip) NEGATIVE (NEGATIVE); UR BLOOD (Dip) NEGATIVE (NEGATIVE); UR CLARITY CLEAR (CLEAR); UR COLOR YELLOW (YELLOW); UR GLUCOSE (Dip) NEGATIVE (NEGATIVE); UR KETONES (Dip) NEGATIVE (NEGATIVE); UR LEUKOCYTE ESTERASE (Dip) 1+ Leu/ul (NEGATIVE); UR NITRITE (Dip) NEGATIVE (NEGATIVE); UR NONSQUAMOUS EPITHELIAL CELL 3 /HPF (NONE SEEN); UR RBC 4 /HPF (0-5); UR SPECIFIC GRAVITY (Dip) 1.023 (1.003-1.030); UR SQUAMOUS EPITHELIAL CELL FEW /HPF (FEW); UR TOTAL PROTEIN (Dip) 1+ mg/dl (NEGATIVE); UR UROBILINOGEN (Dip) 2+ mg/dL (NEGATIVE); UR WBC 53 /HPF (0-5)
[2017-12-16] MEDS: morphine LIQ (10 MG/5 ML) CUP PO (16:49)
[2017-12-16] MEDS: HYDROmorphONE 4 MG TAB PO (20:09)
[2017-12-16] MEDS: COLLAGENASE 5 GM (UD JAR) TOP (22:17)
[2017-12-17] MEDS: HYDROmorphONE 4 MG TAB PO ×6 (01:14→23:47)
[2017-12-17] MEDS: HEPARIN 5,000 UNIT/0.5 ML VIAL SC ×2 (09:00→21:00)
[2017-12-17] MEDS: COLLAGENASE 5 GM (UD JAR) TOP (09:00)
[2017-12-17] MEDS: MEROPENEM 500MG/50 ML (PMX) 50 ML IVPB ×2 (10:37→21:02)
[2017-12-17] MEDS: FAMOTIDINE 20 MG TAB PO ×2 (10:37→21:00)
[2017-12-18] MEDS: HYDROmorphONE 4 MG TAB PO ×5 (04:27→21:33)
[2017-12-18] MEDS: FAMOTIDINE 20 MG TAB PO ×2 (08:33→21:33)
[2017-12-18] MEDS: HEPARIN 5,000 UNIT/0.5 ML VIAL SC ×2 (08:42→21:00)
[2017-12-18] MEDS: MEROPENEM 500MG/50 ML (PMX) 50 ML IVPB ×2 (08:44→21:00)
[2017-12-18] MEDS: COLLAGENASE 5 GM (UD JAR) TOP (08:47)
[2017-12-18] MEDS: GUAIFENESIN 20 MG/ML 5ML CUP PO (18:19)
[2017-12-19] MEDS: HYDROmorphONE 4 MG TAB PO ×6 (02:08→22:30)
[2017-12-19] MEDS: MEROPENEM 500MG/50 ML (PMX) 50 ML IVPB ×2 (08:18→19:33)
[2017-12-19] MEDS: HEPARIN 5,000 UNIT/0.5 ML VIAL SC (08:18)
[2017-12-19] MEDS: FAMOTIDINE 20 MG TAB PO (08:18)
[2017-12-19] MEDS: COLLAGENASE 5 GM (UD JAR) TOP (08:19)
[2017-12-20] MEDS: HYDROmorphONE 4 MG TAB PO ×6 (01:36→21:16)
[2017-12-20] MEDS: GUAIFENESIN 20 MG/ML 5ML CUP PO (06:08)
[2017-12-20] MEDS: COLLAGENASE 5 GM (UD JAR) TOP (08:38)
[2017-12-20] MEDS: ENOXAPARIN 40 MG/0.4 ML SYG SC (08:38)
[2017-12-20] MEDS: FAMOTIDINE 20 MG TAB PO (08:41)
[2017-12-20] MEDS: MEROPENEM 500MG/50 ML (PMX) 50 ML IVPB ×2 (08:41→21:14)
[2017-12-21] MEDS: ENOXAPARIN 40 MG/0.4 ML SYG SC (08:22)
[2017-12-21] MEDS: COLLAGENASE 5 GM (UD JAR) TOP (08:23)
[2017-12-21] MEDS: FAMOTIDINE 20 MG TAB PO (08:42)
[2017-12-21] MEDS: MEROPENEM 500MG/50 ML (PMX) 50 ML IVPB ×2 (08:43→20:58)
[2017-12-21] MEDS: HYDROmorphONE 4 MG TAB PO ×3 (08:51→17:25)
[2017-12-21] MEDS ORDERED: HYDROmorphONE 4 MG TAB PO (21:00)
[2017-12-22] MEDS: HYDROmorphONE 4 MG TAB PO ×2 (03:03→11:01)
[2017-12-22] MEDS: COLLAGENASE 5 GM (UD JAR) TOP (09:00)
[2017-12-22] MEDS: ENOXAPARIN 40 MG/0.4 ML SYG SC (09:00)
[2017-12-22] MEDS: MEROPENEM 500MG/50 ML (PMX) 50 ML IVPB (09:15)
[2017-12-22] MEDS: FAMOTIDINE 20 MG TAB PO (09:18)
== END 2017-12-22 17:50 | disposition home or self-care (01) | DRG 689 ==
LOC: PP2 21:53
DX: N12 Tubulo-interstitial nephritis, not specified as acute or chronic (principal); G82.50 Quadriplegia, unspecified; G91.9 Hydrocephalus, unspecified; M86.68 Other chronic osteomyelitis, other site; N31.9 Neuromuscular dysfunction of bladder, unspecified; Q05.9 Spina bifida, unspecified; F17.200 Nicotine dependence, unspecified, uncomplicated; B96.20 Unspecified Escherichia coli [E. coli] as the cause of diseases classified elsewhere; Z16.12 Extended spectrum beta lactamase (ESBL) resistance; G89.29 Other chronic pain; Z76.5 Malingerer [conscious simulation]; F15.10 Other stimulant abuse, uncomplicated
CPT/HCPCS: 81001; 87086

== ENCOUNTER 2018-01-19 13:08 | Emergency (ER) | payer OTHER ==
[2018-01-19] MEDS: traMADol 50 MG TAB PO (14:00)
[2018-01-19 14:02] LABS: ADD MAN DIFF? NO
[2018-01-19 14:04] LABS: BASOPHILS % 0.4 % (0.0-2.0); EOSINOPHILS # 0.4 10^3/ul (0.0-0.5); EOSINOPHILS % 3.3 % (0.0-7.0); HEMATOCRIT 40.5 % (42.0-52.0); HEMOGLOBIN 12.7 g/dl (14.0-18.0); LYMPHOCYTES # 2.5 10^3/ul (0.8-2.9); LYMPHOCYTES % 22.3 % (15.0-51.0); MEAN CORPUSCULAR HEMOGLOBIN 27.8 pg (29.0-33.0); MEAN CORPUSCULAR HGB CONC 31.4 g/dl (32.0-37.0); MEAN CORPUSCULAR VOLUME 88.6 fl (82.0-101.0); MEAN PLATELET VOLUME 9.5 fl (7.4-10.4); MONOCYTE # 0.6 10^3/ul (0.3-0.9); MONOCYTES % 5.4 % (0.0-11.0); NEUTROPHIL # 7.6 10^3/ul (1.6-7.5); NEUTROPHILS % 68.2 % (39.0-77.0); PLATELET COUNT 369 10^3/UL (140-415); RED BLOOD COUNT 4.57 10^6/ul (4.70-6.10); RED CELL DISTRIBUTION WIDTH 14.5 % (11.5-14.5)
[2018-01-19 14:04] LABS: WHITE BLOOD COUNT 11.2 10^3/ul (4.8-10.8)
[2018-01-19 14:15] LABS: URINE BLOOD (Dip) POC 2+ (NEGATIVE); URINE GLUCOSE (Dip) POC Negative (NEGATIVE); URINE KETONES (Dip) POC Negative (NEGATIVE); URINE LEUKOCYTE EST (Dip) POC 1+ (NEGATIVE); URINE NITRITE (Dip) POC Positive (NEGATIVE); URINE TOTAL PROTEIN POC 1+ (NEGATIVE)
[2018-01-19 14:15] LABS: URINE PH (Dip) POC 5.5 (5.0-8.5)
[2018-01-19 14:21] LABS: ANION GAP 13 (8-16); BLOOD UREA NITROGEN 12 mg/dl (7-20); CALCIUM 8.7 mg/dl (8.4-10.2); CARBON DIOXIDE 23 mmol/L (21-31); CHLORIDE 114 mmol/L (97-110); CREATININE 0.49 mg/dl (0.61-1.24); GLUCOSE 96 mg/dl (70-220); POTASSIUM 4.8 mmol/L (3.5-5.1); SODIUM 145 mmol/L (135-144)
[2018-01-19 14:36] LABS: ADD UMIC YES; UR ASCORBIC ACID 40 mg/dL (NEGATIVE); UR BACTERIA FEW /HPF (NONE SEEN); UR BILIRUBIN (Dip) NEGATIVE (NEGATIVE); UR BLOOD (Dip) 2+ mg/dL (NEGATIVE); UR CLARITY CLOUDY (CLEAR); UR COLOR YELLOW (YELLOW); UR GLUCOSE (Dip) NEGATIVE (NEGATIVE); UR KETONES (Dip) NEGATIVE (NEGATIVE); UR LEUKOCYTE ESTERASE (Dip) 2+ Leu/ul (NEGATIVE); UR MUCUS FEW /HPF (NONE SEEN); UR NITRITE (Dip) POSITIVE (NEGATIVE); UR NONSQUAMOUS EPITHELIAL CELL 12 /HPF (NONE SEEN); UR RBC 87 /HPF (0-5); UR SQUAMOUS EPITHELIAL CELL MODERATE /HPF (FEW); UR TOTAL PROTEIN (Dip) 1+ mg/dl (NEGATIVE); UR UROBILINOGEN (Dip) NEGATIVE (NEGATIVE); UR WBC > 182 /HPF (0-5)
[2018-01-19] MEDS: CIPROFLOXACIN 500 MG TAB PO (15:32)
== END 2018-01-19 15:53 | disposition home or self-care (01) ==
LOC: E/R 13:08
DX: N10 Acute pyelonephritis (principal); G82.20 Paraplegia, unspecified; Z87.798 Personal history of other (corrected) congenital malformations; Z87.891 Personal history of nicotine dependence; Z91.040 Latex allergy status
CPT/HCPCS: 80048; 81001; 81003; 85025; 87086; 99284

== ENCOUNTER 2018-02-17 13:26 | Inpatient (IN) | payer OTHER ==
[2018-02-17 17:14] LABS: ADD MAN DIFF? NO
[2018-02-17] MEDS: SODIUM CHLORIDE 0.9% 1L BAG IV* (17:18)
[2018-02-17] MEDS: HYDROCODONE/APAP (10/325) TAB PO (17:19)
[2018-02-17 17:26] LABS: WHITE BLOOD COUNT 10.6 10^3/ul (4.8-10.8)
[2018-02-17 17:26] LABS: BASOPHILS % 0.3 % (0.0-2.0); EOSINOPHILS % 0.2 % (0.0-7.0); HEMATOCRIT 42.1 % (42.0-52.0); HEMOGLOBIN 13.4 g/dl (14.0-18.0); LYMPHOCYTES # 1.8 10^3/ul (0.8-2.9); LYMPHOCYTES % 17.4 % (15.0-51.0); MEAN CORPUSCULAR HEMOGLOBIN 27.5 pg (29.0-33.0); MEAN CORPUSCULAR HGB CONC 31.8 g/dl (32.0-37.0); MEAN CORPUSCULAR VOLUME 86.4 fl (82.0-101.0); MEAN PLATELET VOLUME 9.2 fl (7.4-10.4); NEUTROPHIL # 7.7 10^3/ul (1.6-7.5); NEUTROPHILS % 72.5 % (39.0-77.0); PLATELET COUNT 375 10^3/UL (140-415); RED BLOOD COUNT 4.87 10^6/ul (4.70-6.10); RED CELL DISTRIBUTION WIDTH 14.5 % (11.5-14.5)
[2018-02-17 17:42] LABS: LACTIC ACID 1.2 mmol/L (0.5-2.0)
[2018-02-17] MEDS: AZTREONAM 1 GM/NS (PMX) 50 ML IVPB (17:44)
[2018-02-17 17:48] LABS: ALBUMIN/GLOBULIN RATIO 0.89; ANION GAP 13 (8-16)
[2018-02-17 17:53] LABS: SODIUM 135 mmol/L (135-144)
[2018-02-17 17:54] LABS: ALANINE AMINOTRANSFERASE 23 IU/L (13-69); ALBUMIN 4.1 g/dl (3.3-4.9); ALKALINE PHOSPHATASE 111 IU/L (42-121); ASPARTATE AMINO TRANSFERASE 21 IU/L (15-46); BLOOD UREA NITROGEN 13 mg/dl (7-20); C-REACTIVE PROTEIN 2.7 mg/dl (0.0-0.9); CALCIUM 8.6 mg/dl (8.4-10.2); CARBON DIOXIDE 27 mmol/L (21-31); CHLORIDE 98 mmol/L (97-110); CREATININE 0.69 mg/dl (0.61-1.24); GLUCOSE 96 mg/dl (70-220); POTASSIUM 2.8 mmol/L (3.5-5.1); TOTAL PROTEIN 8.7 g/dl (6.1-8.1)
[2018-02-17] MEDS: VANCOMYCIN 1 GM (PMX) 250 ML IVPB (18:16)
[2018-02-17 18:41] LABS: ERYTHROCYTE SEDIMENTATION RATE 57 mm/Hr (0-15)
[2018-02-17] MEDS ORDERED: ONDANSETRON 4 MG INJ IV (19:00)
[2018-02-17] MEDS ORDERED: NACL 0.9% 3 ML SYG IV (19:30)
[2018-02-17] MEDS ORDERED: VANCOMYCIN IV PER PHARMACY XX (19:30)
[2018-02-17] MEDS ORDERED: HYDROCODONE/APAP (5/325) TAB PO (19:30)
[2018-02-17 20:03] LABS: LACTIC ACID 0.9 mmol/L (0.5-2.0)
[2018-02-17] MEDS: POTASSIUM CHLORIDE (SR) 10 MEQ TAB PO (20:07)
[2018-02-17] MEDS: DIPHENHYDRAMINE 50 MG CAP PO (20:22)
[2018-02-17] MEDS: POTASSIUM CHLORIDE 50 ML IVPB ×3 (20:22→23:01)
[2018-02-17] MEDS: VANCOMYCIN 1.25 GM in SOD CHLORIDE 0.9% 250 ML IVPB (23:02)
[2018-02-17 23:29] LABS: LACTIC ACID 1.1 mmol/L (0.5-2.0)
[2018-02-18] MEDS: SODIUM HYPOCHLORITE (1/40) 1 APPLIC BTL IRR (00:08)
[2018-02-18] MEDS: AZTREONAM 2 GM in SOD CHLORIDE 0.9% 100 ML IVPB ×2 (02:19→05:42)
[2018-02-18] MEDS: HYDROCODONE/APAP (5/325) TAB PO ×2 (02:55→09:46)
[2018-02-18] MEDS: traMADol 50 MG TAB PO ×2 (02:56→09:46)
[2018-02-18] MEDS ORDERED: HYDROCODONE/APAP (5/325) TAB PO ×2 (03:00→03:30)
[2018-02-18] MEDS ORDERED: traMADol 50 MG TAB PO (03:00)
[2018-02-18] MEDS: ENOXAPARIN 30 MG/0.3 ML SYG SC (09:00)
[2018-02-18] MEDS ORDERED: HEPARIN 5,000 UNIT/0.5 ML VIAL SC (09:00)
[2018-02-18] MEDS: VANCOMYCIN 1.25 GM in SOD CHLORIDE 0.9% 250 ML IVPB ×2 (09:46→21:00)
[2018-02-18] MEDS: CEFTRIAXONE 2 GM/50 ML (PMX) 50 ML IVPB (13:00)
[2018-02-18] MEDS: morphine LIQ (10 MG/5 ML) CUP PO (13:45)
[2018-02-19] MEDS: ONDANSETRON 4 MG TAB PO ×2 (00:03→11:12)
[2018-02-19] MEDS: TRIMETHOPRIM/SULFAMETHOX (DS) TAB PO ×3 (00:03→20:30)
[2018-02-19] MEDS: VANCOMYCIN 1.25 GM in SOD CHLORIDE 0.9% 250 ML IVPB ×2 (08:04→20:30)
[2018-02-19] MEDS: ENOXAPARIN 30 MG/0.3 ML SYG SC (08:04)
[2018-02-19 09:22] LABS: ADD MAN DIFF? NO
[2018-02-19 09:35] LABS: WHITE BLOOD COUNT 6.8 10^3/ul (4.8-10.8)
[2018-02-19 09:35] LABS: BASOPHILS % 0.3 % (0.0-2.0); EOSINOPHILS % 0.4 % (0.0-7.0); HEMATOCRIT 42.6 % (42.0-52.0); HEMOGLOBIN 13.8 g/dl (14.0-18.0); LYMPHOCYTES # 1.2 10^3/ul (0.8-2.9); LYMPHOCYTES % 18.2 % (15.0-51.0); MEAN CORPUSCULAR HEMOGLOBIN 27.9 pg (29.0-33.0); MEAN CORPUSCULAR HGB CONC 32.4 g/dl (32.0-37.0); MEAN CORPUSCULAR VOLUME 86.1 fl (82.0-101.0); MEAN PLATELET VOLUME 9.4 fl (7.4-10.4); MONOCYTE # 0.5 10^3/ul (0.3-0.9); NEUTROPHILS % 73.8 % (39.0-77.0); PLATELET COUNT 292 10^3/UL (140-415); RED BLOOD COUNT 4.95 10^6/ul (4.70-6.10)
[2018-02-19 10:04] LABS: VANCOMYCIN,TROUGH < 5.0 ug/ml (10.0-20.0)
[2018-02-19] MEDS: morphine LIQ (10 MG/5 ML) CUP PO ×2 (11:12→19:41)
[2018-02-19] MEDS: CEFTRIAXONE 2 GM/50 ML (PMX) 50 ML IVPB (13:14)
[2018-02-19 13:19] LABS: BAND NEUTROPHILS #M 0.2 10^3/ul (0.0-0.6); BAND NEUTROPHILS % (M) 3 % (0-4); EOSINOPHILS % (M) 1 % (0-7); LYMPHOCYTES #M 0.8 10^3/ul (0.8-2.9); LYMPHOCYTES % (M) 12 % (15-51); MONOCYTE #M 0.4 10^3/ul (0.3-0.9); MONOCYTES % (M) 7 % (0-11); PLATELET ESTIMATE NORMAL; POIKILOCYTOSIS 2+ (0-0); REACTIVE LYMPHOCYTES #M 0.4 10^3/ul (0.0-0.0); REACTIVE LYMPHOCYTES% (M) 6 % (0-0); SEG NEUT #M 4.8 10^3/ul (1.6-7.5); SEGMENTED NEUTROPHILS (M) % 71 % (39-77); SMUDGE%M 6 % (0-0)
[2018-02-19 13:45] LABS: ADD UMIC YES; UR ASCORBIC ACID NEGATIVE (NEGATIVE); UR BILIRUBIN (Dip) NEGATIVE (NEGATIVE); UR BLOOD (Dip) NEGATIVE (NEGATIVE); UR CLARITY SLIGHTLY CLOUDY (CLEAR); UR COLOR YELLOW (YELLOW); UR GLUCOSE (Dip) NEGATIVE (NEGATIVE); UR KETONES (Dip) 1+ mg/dL (NEGATIVE); UR LEUKOCYTE ESTERASE (Dip) 1+ Leu/ul (NEGATIVE); UR NITRITE (Dip) NEGATIVE (NEGATIVE); UR NONSQUAMOUS EPITHELIAL CELL 8 /HPF (NONE SEEN); UR RBC 8 /HPF (0-5); UR SPECIFIC GRAVITY (Dip) 1.013 (1.003-1.030); UR SQUAMOUS EPITHELIAL CELL FEW /HPF (FEW); UR TOTAL PROTEIN (Dip) 1+ mg/dl (NEGATIVE); UR UROBILINOGEN (Dip) 2+ mg/dL (NEGATIVE); UR WBC 89 /HPF (0-5)
[2018-02-19] MEDS ORDERED: FENTAnyl 50 MCG/ML VIAL ×2 (17:37→18:03)
[2018-02-19] MEDS ORDERED: MIDAZOLAM 1 MG/ML 2 ML INJ (17:37)
[2018-02-19] MEDS: LIDOCAINE 1% (MPF) 30 ML INJ (17:47)
[2018-02-19] MEDS ORDERED: LIDOCAINE 2% (SDV) 5 ML INJ (18:08)
[2018-02-19] MEDS ORDERED: PROPOFOL 20 ML (18:08)
[2018-02-19] MEDS ORDERED: CLINDAMYCIN 600 MG/D5W (PMX) 50 ML IVPB (18:09)
[2018-02-20] MEDS: morphine LIQ (10 MG/5 ML) CUP PO ×4 (00:14→22:56)
[2018-02-20] MEDS: VANCOMYCIN 1.25 GM in SOD CHLORIDE 0.9% 250 ML IVPB ×2 (08:50→21:38)
[2018-02-20] MEDS: HYDROCODONE/APAP (5/325) TAB PO ×3 (08:50→18:59)
[2018-02-20] MEDS: TRIMETHOPRIM/SULFAMETHOX (DS) TAB PO ×2 (08:50→21:00)
[2018-02-20] MEDS: ONDANSETRON 4 MG TAB PO (08:59)
[2018-02-20] MEDS: ENOXAPARIN 30 MG/0.3 ML SYG SC (09:00)
[2018-02-20] MEDS: CEFTRIAXONE 2 GM/50 ML (PMX) 50 ML IVPB (14:06)
[2018-02-20] MEDS: [UNRECOGNIZED DRUG - REMARK] XX (20:00)
[2018-02-20] MEDS: CEFPODOXIME 200 MG TAB PO (21:00)
[2018-02-21] MEDS: HYDROCODONE/APAP (5/325) TAB PO ×5 (00:09→17:39)
[2018-02-21] MEDS: [UNRECOGNIZED DRUG - REMARK] XX (08:00)
[2018-02-21] MEDS: CEFPODOXIME 200 MG TAB PO (08:00)
[2018-02-21] MEDS: TRIMETHOPRIM/SULFAMETHOX (DS) TAB PO (08:01)
[2018-02-21] MEDS: ENOXAPARIN 30 MG/0.3 ML SYG SC (09:00)
[2018-02-21] MEDS: CEFTRIAXONE 2 GM/50 ML (PMX) 50 ML IVPB (12:52)
[2018-02-22] MEDS: ONDANSETRON 4 MG TAB PO ×2 (00:28→22:27)
[2018-02-22] MEDS: ENOXAPARIN 30 MG/0.3 ML SYG SC (08:30)
[2018-02-22] MEDS ORDERED: CEFTRIAXONE 2 GM INJ IM ×2 (09:00→13:00)
[2018-02-22] MEDS: HYDROCODONE/APAP (5/325) TAB PO ×4 (12:31→21:40)
[2018-02-22] MEDS: ERTAPENEM SODIUM 1 GM in SOD CHLORIDE 0.9% 100 ML IVPB (12:45)
[2018-02-22] MEDS: ERTAPENEM SODIUM 1 GM VIAL IM (14:11)
[2018-02-22] MEDS: NYSTATIN 30 GM POWDER BTL TOP (20:36)
[2018-02-22] MEDS: morphine LIQ (10 MG/5 ML) CUP PO (23:54)
[2018-02-23] MEDS: NYSTATIN 30 GM POWDER BTL TOP ×2 (09:00→20:53)
[2018-02-23] MEDS: ENOXAPARIN 30 MG/0.3 ML SYG SC (09:00)
[2018-02-23] MEDS: HYDROCODONE/APAP (5/325) TAB PO ×3 (10:09→20:51)
[2018-02-23] MEDS: ERTAPENEM SODIUM 1 GM VIAL IM (14:00)
[2018-02-23] MEDS ORDERED: HEPARIN 1000 UNITS/NS (A-LINE) 1,000 ML (14:43)
[2018-02-23] MEDS ORDERED: LIDOCAINE 1% (MDV) 10 ML INJ (14:43)
[2018-02-23] MEDS ORDERED: POLYMYXIN/BACITRACIN 1L IRRIG (15:01)
[2018-02-23] MEDS: morphine LIQ (10 MG/5 ML) CUP PO (18:33)
[2018-02-24] MEDS: morphine 2 MG INJ IM (08:22)
[2018-02-24] MEDS: ENOXAPARIN 30 MG/0.3 ML SYG SC (08:25)
[2018-02-24] MEDS: NYSTATIN 30 GM POWDER BTL TOP ×2 (08:26→20:08)
[2018-02-24] MEDS: LIDOCAINE 1% (MPF) 5 ML VIAL SC (08:26)
[2018-02-24] MEDS: morphine 2 MG INJ IV ×2 (12:26→20:32)
[2018-02-24] MEDS: ERTAPENEM SODIUM 1 GM in SOD CHLORIDE 0.9% 100 ML IVPB (13:42)
[2018-02-24] MEDS: HYDROCODONE/APAP (5/325) TAB PO ×2 (15:47→20:07)
[2018-02-25] MEDS: morphine 2 MG INJ IV ×3 (03:55→20:45)
[2018-02-25] MEDS: HYDROCODONE/APAP (5/325) TAB PO ×3 (04:48→17:51)
[2018-02-25] MEDS: ENOXAPARIN 30 MG/0.3 ML SYG SC (09:00)
[2018-02-25] MEDS: NYSTATIN 30 GM POWDER BTL TOP ×2 (09:00→20:45)
[2018-02-25] MEDS: ERTAPENEM SODIUM 1 GM in SOD CHLORIDE 0.9% 100 ML IVPB (13:24)
[2018-02-26] MEDS: HYDROCODONE/APAP (5/325) TAB PO ×4 (02:04→16:23)
[2018-02-26] MEDS: morphine 2 MG INJ IV ×3 (04:38→20:57)
[2018-02-26 04:59] LABS: ADD MAN DIFF? NO
[2018-02-26 05:07] LABS: BASOPHIL # 0.1 10^3/ul (0.0-0.1); BASOPHILS % 0.5 % (0.0-2.0); EOSINOPHILS # 0.7 10^3/ul (0.0-0.5); EOSINOPHILS % 7.1 % (0.0-7.0); HEMATOCRIT 43.4 % (42.0-52.0); HEMOGLOBIN 13.3 g/dl (14.0-18.0); LYMPHOCYTES # 3.8 10^3/ul (0.8-2.9); LYMPHOCYTES % 38.1 % (15.0-51.0); MEAN CORPUSCULAR HEMOGLOBIN 27.4 pg (29.0-33.0); MEAN CORPUSCULAR HGB CONC 30.6 g/dl (32.0-37.0); MEAN CORPUSCULAR VOLUME 89.5 fl (82.0-101.0); MEAN PLATELET VOLUME 9.4 fl (7.4-10.4); MONOCYTE # 0.9 10^3/ul (0.3-0.9); MONOCYTES % 9.2 % (0.0-11.0); NEUTROPHIL # 4.4 10^3/ul (1.6-7.5); NEUTROPHILS % 43.6 % (39.0-77.0); PLATELET COUNT 304 10^3/UL (140-415); RED BLOOD COUNT 4.85 10^6/ul (4.70-6.10); RED CELL DISTRIBUTION WIDTH 14.7 % (11.5-14.5)
[2018-02-26 05:21] LABS: ANION GAP 13 (8-16); BLOOD UREA NITROGEN 27 mg/dl (7-20); CALCIUM 8.9 mg/dl (8.4-10.2); CARBON DIOXIDE 26 mmol/L (21-31); CHLORIDE 105 mmol/L (97-110); GLUCOSE 116 mg/dl (70-220); MAGNESIUM 1.7 mg/dl (1.7-2.5); PHOSPHORUS 4.4 mg/dl (2.5-4.9); POTASSIUM 4.2 mmol/L (3.5-5.1); SODIUM 140 mmol/L (135-144)
[2018-02-26] MEDS: ENOXAPARIN 30 MG/0.3 ML SYG SC (09:00)
[2018-02-26] MEDS: NYSTATIN 30 GM POWDER BTL TOP ×2 (09:00→21:00)
[2018-02-26] MEDS: ERTAPENEM SODIUM 1 GM in SOD CHLORIDE 0.9% 100 ML IVPB (14:09)
[2018-02-27] MEDS: NYSTATIN 30 GM POWDER BTL TOP ×2 (08:01→21:00)
[2018-02-27] MEDS: ENOXAPARIN 30 MG/0.3 ML SYG SC (08:01)
[2018-02-27] MEDS: morphine 2 MG INJ IV ×2 (08:01→16:31)
[2018-02-27] MEDS: HYDROCODONE/APAP (5/325) TAB PO (13:24)
[2018-02-27] MEDS: ERTAPENEM SODIUM 1 GM in SOD CHLORIDE 0.9% 100 ML IVPB (14:22)
[2018-02-28] MEDS: morphine 2 MG INJ IV ×3 (05:54→22:19)
[2018-02-28] MEDS: ENOXAPARIN 30 MG/0.3 ML SYG SC (09:00)
[2018-02-28] MEDS: NYSTATIN 30 GM POWDER BTL TOP ×2 (09:00→21:00)
[2018-02-28] MEDS: HYDROCODONE/APAP (5/325) TAB PO ×2 (11:03→18:12)
[2018-02-28] MEDS: ERTAPENEM SODIUM 1 GM in SOD CHLORIDE 0.9% 100 ML IVPB (14:14)
[2018-03-01] MEDS: morphine 2 MG INJ IV (06:03)
[2018-03-01] MEDS: ENOXAPARIN 30 MG/0.3 ML SYG SC (08:59)
[2018-03-01] MEDS: NYSTATIN 30 GM POWDER BTL TOP (09:00)
[2018-03-01] MEDS: HYDROCODONE/APAP (5/325) TAB PO ×2 (12:38→16:37)
[2018-03-01] MEDS: ERTAPENEM SODIUM 1 GM in SOD CHLORIDE 0.9% 100 ML IVPB (14:33)
[2018-03-01] MEDS: HEPARIN (100 UNITS/ML) 5 ML SYG CATHETER (18:56)
== END 2018-03-01 19:26 | disposition home health service (06) | DRG 463 ==
LOC: E/R 13:26 → PP2 18:44
PROC: 0JBN0ZZ Excision of Right Lower Leg Subcutaneous Tissue and Fascia, Open Approach (ICD-10-PCS; principal; 2018-02-19 17:35)
PROC: 0QBG0ZX Excision of Right Tibia, Open Approach, Diagnostic (ICD-10-PCS; 2018-02-19 17:35)
PROC: 0SBF0ZX Excision of Right Ankle Joint, Open Approach, Diagnostic (ICD-10-PCS; 2018-02-19 17:35)
PROC: 0JH63XZ Insertion of Tunneled Vascular Access Device into Chest Subcutaneous Tissue and Fascia, Percutaneous Approach (ICD-10-PCS; 2018-02-19 17:35)
PROC: 02HV33Z Insertion of Infusion Device into Superior Vena Cava, Percutaneous Approach (ICD-10-PCS; 2018-02-19 17:35)
PROC: B518ZZA Fluoroscopy of Superior Vena Cava, Guidance (ICD-10-PCS; 2018-02-19 17:35)
DX: M86.171 Other acute osteomyelitis, right ankle and foot (principal); L89.213 Pressure ulcer of right hip, stage 3; L89.893 Pressure ulcer of other site, stage 3; G82.20 Paraplegia, unspecified; L03.115 Cellulitis of right lower limb; M00.9 Pyogenic arthritis, unspecified; Z68.41 Body mass index [BMI] 40.0-44.9, adult; M86.671 Other chronic osteomyelitis, right ankle and foot; Q05.9 Spina bifida, unspecified; L89.510 Pressure ulcer of right ankle, unstageable; E66.01 Morbid (severe) obesity due to excess calories; E78.5 Hyperlipidemia, unspecified; I10 Essential (primary) hypertension; B96.20 Unspecified Escherichia coli [E. coli] as the cause of diseases classified elsewhere; B96.6 Bacteroides fragilis [B. fragilis] as the cause of diseases classified elsewhere; B96.4 Proteus (mirabilis) (morganii) as the cause of diseases classified elsewhere; B95.61 Methicillin susceptible Staphylococcus aureus infection as the cause of diseases classified elsewhere; B95.4 Other streptococcus as the cause of diseases classified elsewhere; B96.89 Other specified bacterial agents as the cause of diseases classified elsewhere
CPT/HCPCS: 36415; 71551; 73610-RT; 73721; 76937; 80048; 80053; 80202; 81001; 83605; 83735; 84100; 85025; 85651; 86140; 87040; 87070; 87075; 87086; 87102; 87116; 88304; 88311; 93005; 96374; 96375; 99285-25

== ENCOUNTER 2018-04-07 12:25 | Emergency (ER) | payer OTHER ==
[2018-04-07] MEDS: NITROFURANTOIN (SR) 100 MG CAP PO (12:55)
== END 2018-04-07 13:47 | disposition home or self-care (01) ==
LOC: E/R 12:25
DX: N30.00 Acute cystitis without hematuria (principal); I10 Essential (primary) hypertension; Z91.040 Latex allergy status
CPT/HCPCS: 99283; Z7502

== ENCOUNTER 2018-04-12 13:31 | Emergency (ER) | payer OTHER ==
[2018-04-12] MEDS: NEOMYC/POLYMYX/BACIT 30 GM OINT TOP (16:10)
[2018-04-12] MEDS: OXYCODONE/ACETAMINOPHEN (5/325) TAB PO (16:10)
== END 2018-04-12 16:24 | disposition home or self-care (01) ==
LOC: E/R 13:31
DX: N30.00 Acute cystitis without hematuria (principal); N31.9 Neuromuscular dysfunction of bladder, unspecified; L97.311 Non-pressure chronic ulcer of right ankle limited to breakdown of skin; I10 Essential (primary) hypertension; R40.2142 Coma scale, eyes open, spontaneous, at arrival to emergency department; R40.2252 Coma scale, best verbal response, oriented, at arrival to emergency department; R40.2362 Coma scale, best motor response, obeys commands, at arrival to emergency department; Z91.040 Latex allergy status
CPT/HCPCS: 99283; Z7502

== ENCOUNTER 2018-04-23 21:53 | Inpatient (IN) | payer OTHER ==
[2018-04-23] MEDS ORDERED: NACL 0.9% 3 ML SYG IV (23:00)
[2018-04-23] MEDS ORDERED: ONDANSETRON 4 MG INJ IV (23:00)
[2018-04-23] MEDS ORDERED: HYDROCORTISONE 2.5% 30 GM RECT CR PR (23:00)
[2018-04-23] MEDS ORDERED: NAPROXEN 375 MG PO (23:00)
[2018-04-23] MEDS ORDERED: ACETAMINOPHEN 325 MG TAB PO (23:00)
[2018-04-23] MEDS ORDERED: ALBUTEROL/IPRATROPIUM (NEB) 3 ML AMP HHN (23:00)
[2018-04-24] MEDS: morphine 2 MG INJ IV ×5 (00:13→20:34)
[2018-04-24 00:48] LABS: ADD MAN DIFF? NO
[2018-04-24 00:50] LABS: WHITE BLOOD COUNT 8.2 10^3/ul (4.8-10.8)
[2018-04-24 00:50] LABS: BASOPHILS % 0.2 % (0.0-2.0); EOSINOPHILS # 0.5 10^3/ul (0.0-0.5); EOSINOPHILS % 5.6 % (0.0-7.0); HEMATOCRIT 39.1 % (42.0-52.0); HEMOGLOBIN 12.3 g/dl (14.0-18.0); LYMPHOCYTES # 1.6 10^3/ul (0.8-2.9); LYMPHOCYTES % 18.8 % (15.0-51.0); MEAN CORPUSCULAR HEMOGLOBIN 27.6 pg (29.0-33.0); MEAN CORPUSCULAR HGB CONC 31.5 g/dl (32.0-37.0); MEAN CORPUSCULAR VOLUME 87.9 fl (82.0-101.0); MEAN PLATELET VOLUME 9.3 fl (7.4-10.4); MONOCYTE # 0.7 10^3/ul (0.3-0.9); MONOCYTES % 8.7 % (0.0-11.0); NEUTROPHIL # 5.5 10^3/ul (1.6-7.5); NEUTROPHILS % 66.3 % (39.0-77.0); PLATELET COUNT 217 10^3/UL (140-415); RED BLOOD COUNT 4.45 10^6/ul (4.70-6.10); RED CELL DISTRIBUTION WIDTH 13.7 % (11.5-14.5)
[2018-04-24 01:11] LABS: ALANINE AMINOTRANSFERASE 60 IU/L (13-69); ALBUMIN 2.9 g/dl (3.3-4.9); ALBUMIN/GLOBULIN RATIO 0.72; ALKALINE PHOSPHATASE 126 IU/L (42-121); ANION GAP 12 (8-16); ASPARTATE AMINO TRANSFERASE 34 IU/L (15-46); BILIRUBIN,INDIRECT 0.4 mg/dl (0-1.1); BILIRUBIN,TOTAL 0.4 mg/dl (0.2-1.3); BLOOD UREA NITROGEN 22 mg/dl (7-20); CALCIUM 8.4 mg/dl (8.4-10.2); CARBON DIOXIDE 27 mmol/L (21-31); CHLORIDE 104 mmol/L (97-110); CREATININE 0.75 mg/dl (0.61-1.24); GLUCOSE 113 mg/dl (70-220); MAGNESIUM 1.6 mg/dl (1.7-2.5); PHOSPHORUS 3.1 mg/dl (2.5-4.9); POTASSIUM 3.6 mmol/L (3.5-5.1); SODIUM 139 mmol/L (135-144); TOTAL PROTEIN 6.9 g/dl (6.1-8.1)
[2018-04-24] MEDS: SOD CHLORIDE 0.9% 1,000 ML IV ×5 (01:45→22:00)
[2018-04-24] MEDS: LINEZOLID 600 MG/D5W (PMX) 300 ML IVPB ×3 (02:36→20:34)
[2018-04-24] MEDS: MEROPENEM 500MG/50 ML (PMX) 50 ML IVPB ×2 (03:51→15:37)
[2018-04-24] MEDS: HEPARIN 5,000 UNIT/0.5 ML VIAL SC ×2 (09:00→20:35)
[2018-04-24] MEDS: MAGNESIUM SULFATE 2 GM/50 ML 50 ML IVPB (13:06)
[2018-04-25] MEDS: MEROPENEM 500MG/50 ML (PMX) 50 ML IVPB ×3 (00:14→17:34)
[2018-04-25] MEDS: morphine 2 MG INJ IV ×6 (00:50→21:40)
[2018-04-25] MEDS: SOD CHLORIDE 0.9% 1,000 ML IV ×4 (04:36→18:00)
[2018-04-25] MEDS: HEPARIN 5,000 UNIT/0.5 ML VIAL SC ×3 (09:00→22:51)
[2018-04-25] MEDS: LINEZOLID 600 MG/D5W (PMX) 300 ML IVPB ×2 (09:25→21:32)
[2018-04-25] MEDS ORDERED: PENDING SANTYL ORDER FOR WOUND CARE XX (23:00)
[2018-04-26] MEDS: MEROPENEM 500MG/50 ML (PMX) 50 ML IVPB ×2 (00:03→09:51)
[2018-04-26] MEDS: morphine 2 MG INJ IV ×6 (01:32→22:18)
[2018-04-26] MEDS: SOD CHLORIDE 0.9% 1,000 ML IV ×4 (01:35→23:54)
[2018-04-26] MEDS: LINEZOLID 600 MG/D5W (PMX) 300 ML IVPB (09:00)
[2018-04-26] MEDS: HEPARIN 5,000 UNIT/0.5 ML VIAL SC ×2 (09:00→22:18)
[2018-04-26 10:53] LABS: ADD MAN DIFF? NO
[2018-04-26 10:56] LABS: BASOPHILS % 0.5 % (0.0-2.0); EOSINOPHILS # 0.4 10^3/ul (0.0-0.5); EOSINOPHILS % 6.5 % (0.0-7.0); HEMATOCRIT 37.7 % (42.0-52.0); HEMOGLOBIN 12.1 g/dl (14.0-18.0); LYMPHOCYTES # 2.4 10^3/ul (0.8-2.9); LYMPHOCYTES % 35.7 % (15.0-51.0); MEAN CORPUSCULAR HEMOGLOBIN 28.1 pg (29.0-33.0); MEAN CORPUSCULAR HGB CONC 32.1 g/dl (32.0-37.0); MEAN CORPUSCULAR VOLUME 87.5 fl (82.0-101.0); MEAN PLATELET VOLUME 9.5 fl (7.4-10.4); MONOCYTE # 0.7 10^3/ul (0.3-0.9); MONOCYTES % 10.8 % (0.0-11.0); NEUTROPHILS % 45.1 % (39.0-77.0); PLATELET COUNT 220 10^3/UL (140-415); RED BLOOD COUNT 4.31 10^6/ul (4.70-6.10); RED CELL DISTRIBUTION WIDTH 13.2 % (11.5-14.5)
[2018-04-26 10:56] LABS: WHITE BLOOD COUNT 6.7 10^3/ul (4.8-10.8)
[2018-04-26 11:19] LABS: ANION GAP 9 (8-16); BLOOD UREA NITROGEN 18 mg/dl (7-20); CALCIUM 8.1 mg/dl (8.4-10.2); CARBON DIOXIDE 26 mmol/L (21-31); CHLORIDE 107 mmol/L (97-110); CREATININE 0.47 mg/dl (0.61-1.24); GLUCOSE 113 mg/dl (70-220); POTASSIUM 4.3 mmol/L (3.5-5.1); SODIUM 138 mmol/L (135-144)
[2018-04-26] MEDS ORDERED: COLLAGENASE 5 GM (UD JAR) TOP (20:30)
[2018-04-27] MEDS: morphine 2 MG INJ IV ×5 (03:04→19:54)
[2018-04-27] MEDS: LEVOFLOXACIN 750 MG TABLET NGT (07:04)
[2018-04-27 07:21] LABS: ADD MAN DIFF? NO
[2018-04-27 07:25] LABS: BASOPHILS % 0.5 % (0.0-2.0); EOSINOPHILS # 0.5 10^3/ul (0.0-0.5); EOSINOPHILS % 6.3 % (0.0-7.0); HEMATOCRIT 39.8 % (42.0-52.0); HEMOGLOBIN 12.9 g/dl (14.0-18.0); LYMPHOCYTES # 2.9 10^3/ul (0.8-2.9); LYMPHOCYTES % 35.8 % (15.0-51.0); MEAN CORPUSCULAR HEMOGLOBIN 28.4 pg (29.0-33.0); MEAN CORPUSCULAR HGB CONC 32.4 g/dl (32.0-37.0); MEAN CORPUSCULAR VOLUME 87.5 fl (82.0-101.0); MEAN PLATELET VOLUME 9.6 fl (7.4-10.4); MONOCYTE # 0.7 10^3/ul (0.3-0.9); MONOCYTES % 9.2 % (0.0-11.0); NEUTROPHIL # 3.7 10^3/ul (1.6-7.5); NEUTROPHILS % 46.3 % (39.0-77.0); NUCLEATED RED BLOOD CELLS% 0.2 /100WBC (0.0-0.0); PLATELET COUNT 263 10^3/UL (140-415); RED BLOOD COUNT 4.55 10^6/ul (4.70-6.10); RED CELL DISTRIBUTION WIDTH 13.3 % (11.5-14.5)
[2018-04-27 07:50] LABS: ANION GAP 11 (8-16); BLOOD UREA NITROGEN 24 mg/dl (7-20); CALCIUM 8.5 mg/dl (8.4-10.2); CARBON DIOXIDE 27 mmol/L (21-31); CHLORIDE 106 mmol/L (97-110); CREATININE 0.68 mg/dl (0.61-1.24); GLUCOSE 113 mg/dl (70-220); POTASSIUM 3.7 mmol/L (3.5-5.1); SODIUM 140 mmol/L (135-144)
[2018-04-27] MEDS ORDERED: ENOXAPARIN 40 MG/0.4 ML SYG SC (09:00)
[2018-04-27] MEDS: HEPARIN 5,000 UNIT/0.5 ML VIAL SC ×2 (09:00→20:56)
[2018-04-27] MEDS: COLLAGENASE 5 GM (UD JAR) TOP (09:02)
[2018-04-27] MEDS: SOD CHLORIDE 0.9% 1,000 ML IV ×3 (11:04→20:56)
[2018-04-28] MEDS: morphine 2 MG INJ IV ×6 (00:07→21:25)
[2018-04-28 05:29] LABS: ADD MAN DIFF? NO
[2018-04-28] MEDS: LEVOFLOXACIN 750 MG TABLET NGT (05:29)
[2018-04-28] MEDS: SOD CHLORIDE 0.9% 1,000 ML IV ×4 (05:29→21:27)
[2018-04-28 05:34] LABS: BASOPHILS % 0.5 % (0.0-2.0); EOSINOPHILS # 0.5 10^3/ul (0.0-0.5); EOSINOPHILS % 5.5 % (0.0-7.0); HEMATOCRIT 31.6 % (42.0-52.0); HEMOGLOBIN 9.9 g/dl (14.0-18.0); LYMPHOCYTES % 35.1 % (15.0-51.0); MEAN CORPUSCULAR HEMOGLOBIN 28.1 pg (29.0-33.0); MEAN CORPUSCULAR HGB CONC 31.3 g/dl (32.0-37.0); MEAN CORPUSCULAR VOLUME 89.8 fl (82.0-101.0); MEAN PLATELET VOLUME 9.4 fl (7.4-10.4); MONOCYTE # 0.8 10^3/ul (0.3-0.9); MONOCYTES % 9.4 % (0.0-11.0); NEUTROPHILS % 46.6 % (39.0-77.0); NUCLEATED RED BLOOD CELLS% 0.2 /100WBC (0.0-0.0); PLATELET COUNT 205 10^3/UL (140-415); RED BLOOD COUNT 3.52 10^6/ul (4.70-6.10); RED CELL DISTRIBUTION WIDTH 13.5 % (11.5-14.5)
[2018-04-28 05:34] LABS: WHITE BLOOD COUNT 8.5 10^3/ul (4.8-10.8)
[2018-04-28 06:05] LABS: PHOSPHORUS 2.6 mg/dl (2.5-4.9)
[2018-04-28 06:05] LABS: MAGNESIUM 1.2 mg/dl (1.7-2.5)
[2018-04-28 06:09] LABS: ANION GAP 7 (8-16); BLOOD UREA NITROGEN 16 mg/dl (7-20); CARBON DIOXIDE 18 mmol/L (21-31); CHLORIDE 120 mmol/L (97-110); CREATININE 0.35 mg/dl (0.61-1.24); GLUCOSE 86 mg/dl (70-220); SODIUM 142 mmol/L (135-144)
[2018-04-28 06:33] LABS: POTASSIUM 2.9 mmol/L (3.5-5.1)
[2018-04-28 06:34] LABS: CALCIUM 5.6 mg/dl (8.4-10.2)
[2018-04-28] MEDS: MAGNESIUM SULFATE 4 GM/100 ML 100 ML IVPB (08:14)
[2018-04-28] MEDS: HEPARIN 5,000 UNIT/0.5 ML VIAL SC ×2 (08:20→21:00)
[2018-04-28] MEDS: POTASSIUM CHLORIDE (SR) 20 MEQ TAB PO ×2 (09:04→13:19)
[2018-04-28] MEDS: COLLAGENASE 5 GM (UD JAR) TOP (09:04)
[2018-04-28] MEDS: CALCIUM GLUCONATE 10% 2 GM in DEXTROSE 5% 100 ML IVPB (13:20)
[2018-04-28 14:56] LABS: POTASSIUM 4.8 mmol/L (3.5-5.1)
[2018-04-28 14:56] LABS: MAGNESIUM 2.1 mg/dl (1.7-2.5)
[2018-04-28 14:59] LABS: IONIZED CALCIUM 1.2 mmol/L (1.1-1.4)
[2018-04-29] MEDS: morphine 2 MG INJ IV ×5 (01:41→22:46)
[2018-04-29] MEDS: SOD CHLORIDE 0.9% 1,000 ML IV ×4 (02:00→22:48)
[2018-04-29] MEDS: LEVOFLOXACIN 750 MG TABLET NGT (06:39)
[2018-04-29] MEDS: COLLAGENASE 5 GM (UD JAR) TOP (08:43)
[2018-04-29] MEDS: HEPARIN 5,000 UNIT/0.5 ML VIAL SC (08:44)
[2018-04-29] MEDS: ALTEPLASE (CATHFLO) 2 MG INJ CATHETER (11:20)
[2018-04-29] MEDS: MEROPENEM 1 GM/50ML(PMX) 50 ML IVPB ×2 (13:14→20:50)
[2018-04-29 13:50] LABS: ADD MAN DIFF? NO
[2018-04-29 13:53] LABS: WHITE BLOOD COUNT 11.9 10^3/ul (4.8-10.8)
[2018-04-29 13:53] LABS: BASOPHIL # 0.1 10^3/ul (0.0-0.1); BASOPHILS % 0.7 % (0.0-2.0); EOSINOPHILS # 0.6 10^3/ul (0.0-0.5); EOSINOPHILS % 4.9 % (0.0-7.0); HEMATOCRIT 42.5 % (42.0-52.0); HEMOGLOBIN 13.3 g/dl (14.0-18.0); LYMPHOCYTES # 3.7 10^3/ul (0.8-2.9); MEAN CORPUSCULAR HEMOGLOBIN 27.8 pg (29.0-33.0); MEAN CORPUSCULAR HGB CONC 31.3 g/dl (32.0-37.0); MEAN CORPUSCULAR VOLUME 88.7 fl (82.0-101.0); MEAN PLATELET VOLUME 9.4 fl (7.4-10.4); MONOCYTE # 0.9 10^3/ul (0.3-0.9); MONOCYTES % 7.8 % (0.0-11.0); NEUTROPHIL # 6.1 10^3/ul (1.6-7.5); NEUTROPHILS % 51.5 % (39.0-77.0); PLATELET COUNT 304 10^3/UL (140-415); RED BLOOD COUNT 4.79 10^6/ul (4.70-6.10); RED CELL DISTRIBUTION WIDTH 13.8 % (11.5-14.5)
[2018-04-29 14:16] LABS: ANION GAP 14 (8-16); BLOOD UREA NITROGEN 18 mg/dl (7-20); CARBON DIOXIDE 25 mmol/L (21-31); CHLORIDE 104 mmol/L (97-110); CREATININE 0.48 mg/dl (0.61-1.24); GLUCOSE 103 mg/dl (70-220); MAGNESIUM 1.5 mg/dl (1.7-2.5); POTASSIUM 4.9 mmol/L (3.5-5.1); SODIUM 138 mmol/L (135-144)
[2018-04-29 14:16] LABS: PHOSPHORUS 3.3 mg/dl (2.5-4.9)
[2018-04-29] MEDS: MAGNESIUM SULFATE 1 GM/D5W 100 ML IVPB ×3 (16:15→18:32)
[2018-04-30] MEDS: morphine 2 MG INJ IV ×3 (03:32→12:38)
[2018-04-30 06:40] LABS: ADD MAN DIFF? NO; BASOPHIL # 0.1 10^3/ul (0.0-0.1); BASOPHILS % 0.5 % (0.0-2.0); EOSINOPHILS # 0.6 10^3/ul (0.0-0.5); EOSINOPHILS % 4.7 % (0.0-7.0); HEMATOCRIT 40.9 % (42.0-52.0); HEMOGLOBIN 12.9 g/dl (14.0-18.0); LYMPHOCYTES # 4.1 10^3/ul (0.8-2.9); LYMPHOCYTES % 33.4 % (15.0-51.0); MEAN CORPUSCULAR HEMOGLOBIN 28.2 pg (29.0-33.0); MEAN CORPUSCULAR HGB CONC 31.5 g/dl (32.0-37.0); MEAN CORPUSCULAR VOLUME 89.3 fl (82.0-101.0); MEAN PLATELET VOLUME 9.3 fl (7.4-10.4); MONOCYTES % 7.8 % (0.0-11.0); NEUTROPHIL # 6.2 10^3/ul (1.6-7.5); NEUTROPHILS % 50.4 % (39.0-77.0); PLATELET COUNT 283 10^3/UL (140-415); RED BLOOD COUNT 4.58 10^6/ul (4.70-6.10)
[2018-04-30 06:40] LABS: WHITE BLOOD COUNT 12.3 10^3/ul (4.8-10.8)
[2018-04-30 07:09] LABS: INR 0.87; PROTIME 11.9 Sec (11.9-14.9); PT RATIO 0.9
[2018-04-30 07:10] LABS: ANION GAP 12 (8-16); BLOOD UREA NITROGEN 17 mg/dl (7-20); CALCIUM 8.5 mg/dl (8.4-10.2); CARBON DIOXIDE 26 mmol/L (21-31); CHLORIDE 108 mmol/L (97-110); CREATININE 0.44 mg/dl (0.61-1.24); GLUCOSE 103 mg/dl (70-220); PARTIAL THROMBOPLASTIN TIME 32.7 Sec (23.0-35.0); POTASSIUM 4.8 mmol/L (3.5-5.1); SODIUM 141 mmol/L (135-144)
[2018-04-30 07:20] LABS: MAGNESIUM 1.9 mg/dl (1.7-2.5)
[2018-04-30 07:20] LABS: PHOSPHORUS 3.8 mg/dl (2.5-4.9)
[2018-04-30] MEDS: MEROPENEM 1 GM/50ML(PMX) 50 ML IVPB (08:14)
[2018-04-30] MEDS: COLLAGENASE 5 GM (UD JAR) TOP (08:14)
[2018-04-30] MEDS: SOD CHLORIDE 0.9% 1,000 ML IV (09:16)
[2018-04-30] MEDS ORDERED: POLYMYXIN/BACITRACIN 1L IRRIG (13:12)
[2018-04-30] MEDS ORDERED: HEPARIN 1000 UNITS/NS (A-LINE) 1,000 ML (13:52)
[2018-04-30] MEDS ORDERED: LIDOCAINE 1% (MDV) 20 ML INJ (13:52)
[2018-04-30] MEDS: oxyCODONE 5 MG TAB PO ×2 (17:32→21:38)
[2018-04-30] MEDS: HEPARIN 5,000 UNIT/0.5 ML VIAL SC (21:00)
[2018-05-01] MEDS: oxyCODONE 5 MG TAB PO ×3 (01:55→16:23)
[2018-05-01] MEDS: LEVOFLOXACIN 750 MG TABLET PO (05:16)
[2018-05-01] MEDS: HEPARIN 5,000 UNIT/0.5 ML VIAL SC ×2 (09:00→22:40)
[2018-05-01] MEDS: COLLAGENASE 5 GM (UD JAR) TOP (09:48)
[2018-05-01] MEDS ORDERED: morphine 2 MG INJ IV (15:00)
[2018-05-01] MEDS: morphine 2 MG INJ IV (23:12)
[2018-05-02] MEDS: LEVOFLOXACIN 750 MG TABLET PO (06:08)
[2018-05-02] MEDS: oxyCODONE 5 MG TAB PO ×4 (06:13→22:57)
[2018-05-02] MEDS: COLLAGENASE 5 GM (UD JAR) TOP (08:37)
[2018-05-02] MEDS: HEPARIN 5,000 UNIT/0.5 ML VIAL SC ×2 (08:38→21:00)
[2018-05-03] MEDS: oxyCODONE 5 MG TAB PO ×2 (04:23→12:59)
[2018-05-03] MEDS: LEVOFLOXACIN 750 MG TABLET PO (05:39)
[2018-05-03] MEDS: HEPARIN 5,000 UNIT/0.5 ML VIAL SC (09:00)
[2018-05-03] MEDS: COLLAGENASE 5 GM (UD JAR) TOP (09:08)
== END 2018-05-03 17:10 | disposition home or self-care (01) | DRG 314 ==
LOC: 2NE 21:53
PROC: 0JPT0WZ Removal of Totally Implantable Vascular Access Device from Trunk Subcutaneous Tissue and Fascia, Open Approach (ICD-10-PCS; principal; 2018-04-30 11:00)
PROC: 02PA33Z Removal of Infusion Device from Heart, Percutaneous Approach (ICD-10-PCS; 2018-04-30 11:00)
DX: T80.211A Bloodstream infection due to central venous catheter, initial encounter (principal); L89.513 Pressure ulcer of right ankle, stage 3; A41.59 Other Gram-negative sepsis; G82.20 Paraplegia, unspecified; M86.8X7 Other osteomyelitis, ankle and foot; Z68.41 Body mass index [BMI] 40.0-44.9, adult; Q05.9 Spina bifida, unspecified; F29 Unspecified psychosis not due to a substance or known physiological condition; F15.10 Other stimulant abuse, uncomplicated; D63.8 Anemia in other chronic diseases classified elsewhere; N31.9 Neuromuscular dysfunction of bladder, unspecified; Z86.718 Personal history of other venous thrombosis and embolism; E66.9 Obesity, unspecified; Z72.0 Tobacco use; B96.89 Other specified bacterial agents as the cause of diseases classified elsewhere; G89.29 Other chronic pain
CPT/HCPCS: 71045; 73610-RT; 80048; 80053; 82330; 83735; 84100; 84132; 85025; 85610; 85730; 87040; 87070

== ENCOUNTER 2018-05-26 13:35 | Emergency (ER) | payer OTHER ==
[2018-05-26 15:46] LABS: ADD UMIC YES; UR ASCORBIC ACID NEGATIVE (NEGATIVE); UR BACTERIA MANY /HPF (NONE SEEN); UR BILIRUBIN (Dip) NEGATIVE (NEGATIVE); UR BLOOD (Dip) 1+ mg/dL (NEGATIVE); UR CLARITY CLOUDY (CLEAR); UR COLOR YELLOW (YELLOW); UR GLUCOSE (Dip) NEGATIVE (NEGATIVE); UR KETONES (Dip) NEGATIVE (NEGATIVE); UR LEUKOCYTE ESTERASE (Dip) 2+ Leu/ul (NEGATIVE); UR MUCUS FEW /HPF (NONE SEEN); UR NITRITE (Dip) POSITIVE (NEGATIVE); UR RBC 22 /HPF (0-5); UR SPECIFIC GRAVITY (Dip) 1.016 (1.003-1.030); UR SQUAMOUS EPITHELIAL CELL FEW /HPF (FEW); UR TOTAL PROTEIN (Dip) 1+ mg/dl (NEGATIVE); UR UROBILINOGEN (Dip) NEGATIVE (NEGATIVE); UR WBC > 182 /HPF (0-5)
[2018-05-26] MEDS: traMADol 50 MG TAB PO (15:56)
== END 2018-05-26 16:22 | disposition home or self-care (01) ==
LOC: FTE 13:35
DX: M54.5 Low back pain (principal); F17.210 Nicotine dependence, cigarettes, uncomplicated; Z91.040 Latex allergy status
CPT/HCPCS: 81001; 99283

== ENCOUNTER 2018-05-28 13:13 | Emergency (ER) | payer OTHER ==
[2018-05-28] MEDS: HYDROmorphONE 2 MG/ML SYG IM (14:49)
[2018-05-28] MEDS: ONDANSETRON (ODT) 4 MG TAB ODT (14:49)
[2018-05-28] MEDS: LEVOFLOXACIN 750 MG TABLET PO (14:51)
[2018-05-28 15:35] LABS: ADD UMIC YES; UR ASCORBIC ACID NEGATIVE (NEGATIVE); UR BACTERIA MODERATE /HPF (NONE SEEN); UR BILIRUBIN (Dip) NEGATIVE (NEGATIVE); UR BLOOD (Dip) 1+ mg/dL (NEGATIVE); UR CLARITY CLOUDY (CLEAR); UR COLOR YELLOW (YELLOW); UR GLUCOSE (Dip) NEGATIVE (NEGATIVE); UR KETONES (Dip) NEGATIVE (NEGATIVE); UR LEUKOCYTE ESTERASE (Dip) 2+ Leu/ul (NEGATIVE); UR NITRITE (Dip) POSITIVE (NEGATIVE); UR RBC 20 /HPF (0-5); UR SPECIFIC GRAVITY (Dip) 1.019 (1.003-1.030); UR SQUAMOUS EPITHELIAL CELL FEW /HPF (FEW); UR TOTAL PROTEIN (Dip) 2+ mg/dl (NEGATIVE); UR UROBILINOGEN (Dip) NEGATIVE (NEGATIVE); UR WBC > 182 /HPF (0-5)
== END 2018-05-28 16:27 | disposition home or self-care (01) ==
LOC: E/R 13:13
DX: N30.00 Acute cystitis without hematuria (principal); F17.210 Nicotine dependence, cigarettes, uncomplicated; Z91.040 Latex allergy status
CPT/HCPCS: 81001; 87086; 96372; 99284-25

== ENCOUNTER 2018-06-22 13:11 | Inpatient (IN) | payer OTHER ==
[2018-06-22 18:05] LABS: ALANINE AMINOTRANSFERASE 21 IU/L (13-69); ALBUMIN 4.1 g/dl (3.3-4.9); ALBUMIN/GLOBULIN RATIO 0.93; ALKALINE PHOSPHATASE 118 IU/L (42-121); ANION GAP 10 (5-13); ASPARTATE AMINO TRANSFERASE 25 IU/L (15-46); BILIRUBIN,INDIRECT 0.5 mg/dl (0-1.1); BILIRUBIN,TOTAL 0.5 mg/dl (0.2-1.3); BLOOD UREA NITROGEN 22 mg/dl (7-20); CARBON DIOXIDE 28 mmol/L (21-31); CHLORIDE 104 mmol/L (97-110); CREATININE 0.48 mg/dl (0.61-1.24); Estimated GFR > 60 mL/min (>60); GLUCOSE 84 mg/dl (70-220); POTASSIUM 4.3 mmol/L (3.5-5.1); SODIUM 142 mmol/L (135-144); TOTAL PROTEIN 8.5 g/dl (6.1-8.1)
[2018-06-22] MEDS: traMADol 50 MG TAB PO (18:13)
[2018-06-22] MEDS: VANCOMYCIN 1 GM (PMX) 250 ML IVPB (18:15)
[2018-06-22 18:51] LABS: C-REACTIVE PROTEIN 2.2 mg/dl (0.0-0.9)
[2018-06-22] MEDS ORDERED: MAGNESIUM HYDROXIDE 30ML CUP PO (19:00)
[2018-06-22] MEDS ORDERED: NACL 0.9% 3 ML SYG IV (19:00)
[2018-06-22] MEDS ORDERED: HYDROCODONE/APAP (5/325) TAB PO (19:00)
[2018-06-22] MEDS ORDERED: DOCUSATE SODIUM 100 MG CAP PO (19:00)
[2018-06-22] MEDS ORDERED: VANCOMYCIN IV PER PHARMACY XX (19:00)
[2018-06-22] MEDS ORDERED: ONDANSETRON 4 MG INJ IV ×2 (19:00)
[2018-06-22] MEDS ORDERED: ACETAMINOPHEN 325 MG TAB PO (19:00)
[2018-06-22 19:26] LABS: ADD UMIC YES; UR ASCORBIC ACID NEGATIVE (NEGATIVE); UR BACTERIA MODERATE /HPF (NONE SEEN); UR BILIRUBIN (Dip) NEGATIVE (NEGATIVE); UR BLOOD (Dip) 1+ mg/dL (NEGATIVE); UR CLARITY SLIGHTLY CLOUDY (CLEAR); UR COLOR RED (YELLOW); UR GLUCOSE (Dip) NEGATIVE (NEGATIVE); UR KETONES (Dip) NEGATIVE (NEGATIVE); UR LEUKOCYTE ESTERASE (Dip) 2+ Leu/ul (NEGATIVE); UR NITRITE (Dip) POSITIVE (NEGATIVE); UR RBC 7 /HPF (0-5); UR SPECIFIC GRAVITY (Dip) 1.014 (1.003-1.030); UR TOTAL PROTEIN (Dip) 1+ mg/dl (NEGATIVE); UR UROBILINOGEN (Dip) NEGATIVE (NEGATIVE); UR WBC > 182 /HPF (0-5)
[2018-06-22] MEDS: morphine 2 MG INJ IV (19:33)
[2018-06-22] MEDS: LEVOFLOXACIN 500MG/D5W (PMX) 100 ML IVPB (19:35)
[2018-06-22 20:16] LABS: HEMATOCRIT 44.6 % (42.0-52.0); HEMOGLOBIN 14.2 g/dl (14.0-18.0); MEAN CORPUSCULAR HEMOGLOBIN 28.1 pg (29.0-33.0); MEAN CORPUSCULAR HGB CONC 31.8 g/dl (32.0-37.0); MEAN CORPUSCULAR VOLUME 88.3 fl (82.0-101.0); MEAN PLATELET VOLUME 10.2 fl (7.4-10.4); PLATELET COUNT 247 10^3/UL (140-415); POSITIVE DIFF @See below; RED BLOOD COUNT 5.05 10^6/ul (4.70-6.10); RED CELL DISTRIBUTION WIDTH 13.6 % (11.5-14.5)
[2018-06-22 20:16] LABS: WHITE BLOOD COUNT 12.5 10^3/ul (4.8-10.8)
[2018-06-22 20:19] LABS: ADD MAN DIFF? YES
[2018-06-22 20:48] LABS: EOSINOPHILS % (M) 8 % (0-7); LYMPHOCYTES #M 2.8 10^3/ul (0.8-2.9); LYMPHOCYTES % (M) 23 % (15-51); MONOCYTES % (M) 8 % (0-11); PLATELET ESTIMATE NORMAL; REACTIVE LYMPHOCYTES #M 0.1 10^3/ul (0.0-0.0); REACTIVE LYMPHOCYTES% (M) 1 % (0-0); SEGMENTED NEUTROPHILS (M) % 60 % (39-77); SMUDGE%M 6 % (0-0)
[2018-06-22 21:21] LABS: ERYTHROCYTE SEDIMENTATION RATE 20 mm/Hr (0-15)
[2018-06-22] MEDS: oxyCODONE 5 MG TAB PO (22:18)
[2018-06-22] MEDS: VANCOMYCIN 1 GM in 250 ML IVPB ×2 (23:33→23:35)
[2018-06-23] MEDS: morphine 2 MG INJ IV ×6 (00:25→21:53)
[2018-06-23] MEDS ORDERED: PENDING SANTYL ORDER FOR WOUND CARE XX (04:30)
[2018-06-23] MEDS: ENOXAPARIN 40 MG/0.4 ML SYG SC (09:00)
[2018-06-23] MEDS: VANCOMYCIN 1.5 GM in SOD CHLORIDE 0.9% 250 ML IVPB ×2 (12:48→23:28)
[2018-06-23 14:10] LABS: ADD MAN DIFF? NO
[2018-06-23 14:15] LABS: WHITE BLOOD COUNT 8.7 10^3/ul (4.8-10.8)
[2018-06-23 14:15] LABS: BASOPHILS % 0.2 % (0.0-2.0); EOSINOPHILS # 0.4 10^3/ul (0.0-0.5); EOSINOPHILS % 4.8 % (0.0-7.0); HEMATOCRIT 40.9 % (42.0-52.0); HEMOGLOBIN 13.2 g/dl (14.0-18.0); LYMPHOCYTES # 2.1 10^3/ul (0.8-2.9); LYMPHOCYTES % 23.7 % (15.0-51.0); MEAN CORPUSCULAR HEMOGLOBIN 28.3 pg (29.0-33.0); MEAN CORPUSCULAR HGB CONC 32.3 g/dl (32.0-37.0); MEAN CORPUSCULAR VOLUME 87.6 fl (82.0-101.0); MEAN PLATELET VOLUME 9.9 fl (7.4-10.4); MONOCYTE # 0.7 10^3/ul (0.3-0.9); MONOCYTES % 7.9 % (0.0-11.0); NEUTROPHIL # 5.5 10^3/ul (1.6-7.5); NEUTROPHILS % 63.1 % (39.0-77.0); PLATELET COUNT 269 10^3/UL (140-415); POSITIVE DIFF @See below; RED BLOOD COUNT 4.67 10^6/ul (4.70-6.10); RED CELL DISTRIBUTION WIDTH 13.4 % (11.5-14.5)
[2018-06-23 14:48] LABS: ANION GAP 8 (5-13); BLOOD UREA NITROGEN 26 mg/dl (7-20); CALCIUM 8.5 mg/dl (8.4-10.2); CARBON DIOXIDE 27 mmol/L (21-31); CHLORIDE 103 mmol/L (97-110); CREATININE 0.46 mg/dl (0.61-1.24); Estimated GFR > 60 mL/min (>60); GLUCOSE 140 mg/dl (70-220); MAGNESIUM 1.5 mg/dl (1.7-2.5); POTASSIUM 4.1 mmol/L (3.5-5.1); SODIUM 138 mmol/L (135-144)
[2018-06-23] MEDS: MAGNESIUM OXIDE 400 MG TAB PO (15:28)
[2018-06-23] MEDS: LEVOFLOXACIN 500MG/D5W (PMX) 100 ML IVPB (18:03)
[2018-06-23] MEDS: oxyCODONE 5 MG TAB PO (20:00)
[2018-06-23] MEDS ORDERED: HEPARIN 5,000 UNIT/0.5 ML VIAL (21:39)
[2018-06-23] MEDS: HEPARIN 5,000 UNIT/1 ML VIAL SC (22:00)
[2018-06-24] MEDS: morphine 2 MG INJ IV ×6 (01:56→22:38)
[2018-06-24] MEDS ORDERED: HEPARIN 5,000 UNIT/0.5 ML VIAL ×2 (04:55→13:38)
[2018-06-24] MEDS: HEPARIN 5,000 UNIT/1 ML VIAL SC ×3 (06:00→21:32)
[2018-06-24] MEDS: oxyCODONE 5 MG TAB PO ×2 (07:58→17:04)
[2018-06-24 12:04] LABS: VANCOMYCIN,TROUGH 9.1 ug/ml (10.0-20.0)
[2018-06-24] MEDS: VANCOMYCIN 1.5 GM in SOD CHLORIDE 0.9% 250 ML IVPB (12:14)
[2018-06-24] MEDS: ERTAPENEM SODIUM 1 GM in SOD CHLORIDE 0.9% 100 ML IVPB (16:42)
[2018-06-24] MEDS ORDERED: COLLAGENASE 5 GM (UD JAR) TOP (22:48)
[2018-06-24] MEDS: VANCOMYCIN 1.75 GM in SOD CHLORIDE 0.9% 500 ML IVPB (23:56)
[2018-06-25] MEDS: morphine 2 MG INJ IV ×4 (04:05→18:27)
[2018-06-25] MEDS: HEPARIN 5,000 UNIT/1 ML VIAL SC ×3 (05:32→22:00)
[2018-06-25] MEDS: VANCOMYCIN 1.75 GM in SOD CHLORIDE 0.9% 500 ML IVPB ×2 (12:21→23:30)
[2018-06-25] MEDS: oxyCODONE 5 MG TAB PO ×2 (13:41→20:20)
[2018-06-25] MEDS: ERTAPENEM SODIUM 1 GM in SOD CHLORIDE 0.9% 100 ML IVPB (16:38)
[2018-06-26] MEDS: morphine 2 MG INJ IV ×4 (00:27→17:48)
[2018-06-26] MEDS: HEPARIN 5,000 UNIT/1 ML VIAL SC ×3 (05:30→21:35)
[2018-06-26] MEDS: oxyCODONE 5 MG TAB PO ×2 (11:53→16:07)
[2018-06-26] MEDS: ZYVOX 600 MG TAB PO ×2 (12:55→21:35)
[2018-06-26] MEDS: ERTAPENEM SODIUM 1 GM in SOD CHLORIDE 0.9% 100 ML IVPB ×2 (15:44→17:05)
[2018-06-26] MEDS ORDERED: ZYVOX 600 MG TAB PO (21:00)
[2018-06-27] MEDS: morphine 2 MG INJ IV ×4 (00:35→18:51)
[2018-06-27] MEDS: HEPARIN 5,000 UNIT/1 ML VIAL SC ×3 (06:00→21:43)
[2018-06-27] MEDS: ZYVOX 600 MG TAB PO ×2 (09:24→20:31)
[2018-06-27] MEDS: oxyCODONE 5 MG TAB PO ×3 (12:05→20:31)
[2018-06-27] MEDS: ERTAPENEM SODIUM 1 GM in SOD CHLORIDE 0.9% 100 ML IVPB (15:44)
[2018-06-27] MEDS ORDERED: HEPARIN 5,000 UNIT/0.5 ML VIAL (21:15)
[2018-06-28] MEDS: morphine 2 MG INJ IV ×4 (00:45→18:41)
[2018-06-28] MEDS: HEPARIN 5,000 UNIT/1 ML VIAL SC (06:00)
[2018-06-28] MEDS: ZYVOX 600 MG TAB PO ×2 (08:25→21:16)
[2018-06-28] MEDS: oxyCODONE 5 MG TAB PO ×3 (08:25→19:55)
[2018-06-28] MEDS: ERTAPENEM SODIUM 1 GM in SOD CHLORIDE 0.9% 100 ML IVPB (16:15)
[2018-06-28] MEDS: LACTOBACILLUS RHAMNOSUS CAP PO (21:16)
[2018-06-29] MEDS: morphine 2 MG INJ IV ×4 (00:45→18:55)
[2018-06-29] MEDS: oxyCODONE 5 MG TAB PO ×4 (03:06→21:26)
[2018-06-29] MEDS: LACTOBACILLUS RHAMNOSUS CAP PO ×2 (08:29→21:26)
[2018-06-29] MEDS: ZYVOX 600 MG TAB PO (08:29)
[2018-06-29] MEDS: ENOXAPARIN 40 MG/0.4 ML SYG SC (08:31)
[2018-06-29] MEDS: MAGNESIUM SULFATE 2 GM/50 ML 50 ML IVPB (13:28)
[2018-06-29] MEDS: DOXYCYCLINE 100 MG TAB PO (17:26)
[2018-06-30] MEDS: morphine 2 MG INJ IV ×3 (00:48→13:02)
[2018-06-30] MEDS: DOXYCYCLINE 100 MG TAB PO ×2 (00:52→10:04)
[2018-06-30] MEDS: ENOXAPARIN 40 MG/0.4 ML SYG SC (09:00)
[2018-06-30] MEDS: LACTOBACILLUS RHAMNOSUS CAP PO (10:04)
[2018-06-30] MEDS: oxyCODONE 5 MG TAB PO (13:59)
== END 2018-06-30 15:45 | disposition home health service (06) | DRG 602 ==
LOC: FTE 13:11 → MS1 18:41 → PP2 21:50
DX: L03.116 Cellulitis of left lower limb (principal); L89.893 Pressure ulcer of other site, stage 3; L89.523 Pressure ulcer of left ankle, stage 3; Z68.41 Body mass index [BMI] 40.0-44.9, adult; Q05.4 Unspecified spina bifida with hydrocephalus; G82.20 Paraplegia, unspecified; N39.0 Urinary tract infection, site not specified; E66.01 Morbid (severe) obesity due to excess calories; F15.10 Other stimulant abuse, uncomplicated; Z72.0 Tobacco use; B96.1 Klebsiella pneumoniae [K. pneumoniae] as the cause of diseases classified elsewhere; B96.20 Unspecified Escherichia coli [E. coli] as the cause of diseases classified elsewhere; Z16.39 Resistance to other specified antimicrobial drug
CPT/HCPCS: 73721; 76882-RT; 80048; 80053; 80202; 81001; 83735; 85025; 85651; 86140; 87040; 87086; 96365; 97166; 99285-25

== ENCOUNTER 2018-07-13 20:49 | Emergency (ER) | payer OTHER ==
[2018-07-13] MEDS: morphine 4 MG/ML VIAL IV (22:56)
[2018-07-13] MEDS: SOD CHLORIDE 0.9% 1,000 ML IV (22:56)
[2018-07-13 23:06] LABS: ADD MAN DIFF? NO
[2018-07-13 23:10] LABS: WHITE BLOOD COUNT 11.9 10^3/ul (4.8-10.8)
[2018-07-13 23:10] LABS: BASOPHILS % 0.3 % (0.0-2.0); EOSINOPHILS # 0.6 10^3/ul (0.0-0.5); EOSINOPHILS % 5.2 % (0.0-7.0); HEMOGLOBIN 13.8 g/dl (14.0-18.0); LYMPHOCYTES # 3.5 10^3/ul (0.8-2.9); MEAN CORPUSCULAR HEMOGLOBIN 28.2 pg (29.0-33.0); MEAN CORPUSCULAR HGB CONC 32.1 g/dl (32.0-37.0); MEAN CORPUSCULAR VOLUME 87.8 fl (82.0-101.0); MEAN PLATELET VOLUME 9.4 fl (7.4-10.4); MONOCYTE # 1.1 10^3/ul (0.3-0.9); MONOCYTES % 9.6 % (0.0-11.0); NEUTROPHIL # 6.6 10^3/ul (1.6-7.5); NEUTROPHILS % 55.6 % (39.0-77.0); PLATELET COUNT 394 10^3/UL (140-415); RED CELL DISTRIBUTION WIDTH 13.5 % (11.5-14.5)
[2018-07-13 23:30] LABS: INR 0.99; PARTIAL THROMBOPLASTIN TIME 34.9 Sec (23.0-35.0); PROTIME 13.2 Sec (11.9-14.9)
[2018-07-13 23:31] LABS: LACTIC ACID 1.5 mmol/L (0.5-2.0)
[2018-07-13 23:32] LABS: ALANINE AMINOTRANSFERASE 15 IU/L (13-69); ALKALINE PHOSPHATASE 126 IU/L (42-121); ANION GAP 13 (5-13); ASPARTATE AMINO TRANSFERASE 17 IU/L (15-46); BILIRUBIN,INDIRECT 0.4 mg/dl (0-1.1); BILIRUBIN,TOTAL 0.4 mg/dl (0.2-1.3); BLOOD UREA NITROGEN 15 mg/dl (7-20); CALCIUM 9.1 mg/dl (8.4-10.2); CARBON DIOXIDE 23 mmol/L (21-31); CHLORIDE 109 mmol/L (97-110); CREATININE 0.51 mg/dl (0.61-1.24); Estimated GFR > 60 mL/min (>60); GLUCOSE 101 mg/dl (70-220); LIPASE 475 U/L (23-300); POTASSIUM 3.4 mmol/L (3.5-5.1); SODIUM 145 mmol/L (135-144); TOTAL PROTEIN 8.4 g/dl (6.1-8.1)
[2018-07-14 01:03] LABS: ADD UMIC YES; UR AMORPHOUS CRYSTAL FEW /HPF (NONE SEEN); UR ASCORBIC ACID NEGATIVE (NEGATIVE); UR BACTERIA FEW /HPF (NONE SEEN); UR BILIRUBIN (Dip) NEGATIVE (NEGATIVE); UR BLOOD (Dip) 1+ mg/dL (NEGATIVE); UR CLARITY TURBID (CLEAR); UR COLOR YELLOW (YELLOW); UR GLUCOSE (Dip) NEGATIVE (NEGATIVE); UR KETONES (Dip) NEGATIVE (NEGATIVE); UR LEUKOCYTE ESTERASE (Dip) 3+ Leu/ul (NEGATIVE); UR MUCUS FEW /HPF (NONE SEEN); UR NITRITE (Dip) POSITIVE (NEGATIVE); UR RBC 15 /HPF (0-5); UR SPECIFIC GRAVITY (Dip) 1.017 (1.003-1.030); UR SQUAMOUS EPITHELIAL CELL FEW /HPF (FEW); UR TOTAL PROTEIN (Dip) 1+ mg/dl (NEGATIVE); UR TRANSITIONAL EPI CELL FEW /HPF (NONE SEEN); UR UROBILINOGEN (Dip) NEGATIVE (NEGATIVE); UR WBC > 182 /HPF (0-5)
== END 2018-07-14 01:45 | disposition home or self-care (01) ==
LOC: FTE 20:49
DX: R30.0 Dysuria (principal); F17.210 Nicotine dependence, cigarettes, uncomplicated; R10.9 Unspecified abdominal pain; Z91.040 Latex allergy status
CPT/HCPCS: 36415; 74176; 80053; 81001; 83605; 83690; 85025; 85610; 85730; 87086; 96374; 99285-25

== ENCOUNTER 2018-08-06 14:13 | Emergency (ER) | payer OTHER ==
[2018-08-06 18:27] LABS: ADD UMIC YES; UR ASCORBIC ACID NEGATIVE (NEGATIVE); UR BILIRUBIN (Dip) NEGATIVE (NEGATIVE); UR BLOOD (Dip) 1+ mg/dL (NEGATIVE); UR CLARITY CLEAR (CLEAR); UR COLOR AMBER (YELLOW); UR GLUCOSE (Dip) NEGATIVE (NEGATIVE); UR KETONES (Dip) TRACE mg/dL (NEGATIVE); UR LEUKOCYTE ESTERASE (Dip) NEGATIVE Leu/ul (NEGATIVE); UR MUCUS FEW /HPF (NONE SEEN); UR NITRITE (Dip) POSITIVE (NEGATIVE); UR RBC 12 /HPF (0-5); UR SPECIFIC GRAVITY (Dip) 1.017 (1.003-1.030); UR SQUAMOUS EPITHELIAL CELL FEW /HPF (FEW); UR TOTAL PROTEIN (Dip) 1+ mg/dl (NEGATIVE); UR UROBILINOGEN (Dip) 2+ mg/dL (NEGATIVE); UR WBC 36 /HPF (0-5)
[2018-08-06 18:59] LABS: ADD MAN DIFF? NO
[2018-08-06 19:04] LABS: BASOPHILS % 0.3 % (0.0-2.0); EOSINOPHILS # 0.4 10^3/ul (0.0-0.5); EOSINOPHILS % 3.1 % (0.0-7.0); HEMATOCRIT 47.3 % (42.0-52.0); HEMOGLOBIN 15.3 g/dl (14.0-18.0); LYMPHOCYTES # 3.2 10^3/ul (0.8-2.9); LYMPHOCYTES % 27.7 % (15.0-51.0); MEAN CORPUSCULAR HEMOGLOBIN 28.4 pg (29.0-33.0); MEAN CORPUSCULAR HGB CONC 32.3 g/dl (32.0-37.0); MEAN CORPUSCULAR VOLUME 87.8 fl (82.0-101.0); MEAN PLATELET VOLUME 9.4 fl (7.4-10.4); MONOCYTES % 8.3 % (0.0-11.0); NEUTROPHILS % 60.3 % (39.0-77.0); PLATELET COUNT 358 10^3/UL (140-415); RED BLOOD COUNT 5.39 10^6/ul (4.70-6.10)
[2018-08-06 19:04] LABS: WHITE BLOOD COUNT 11.6 10^3/ul (4.8-10.8)
[2018-08-06 19:17] LABS: INR 0.94; PROTIME 12.7 Sec (11.9-14.9)
[2018-08-06 19:18] LABS: PARTIAL THROMBOPLASTIN TIME 32.7 Sec (23.0-35.0)
[2018-08-06] MEDS: SODIUM CHLORIDE 0.9% 1L BAG IV* (19:20)
[2018-08-06] MEDS: SOD CHLORIDE 0.9% 1,000 ML IV (19:20)
[2018-08-06] MEDS: CEFTRIAXONE 1 GM/50 ML (PMX) 50 ML IVPB (19:20)
[2018-08-06 19:22] LABS: ANION GAP 10 (5-13); BLOOD UREA NITROGEN 13 mg/dl (7-20); CALCIUM 9.4 mg/dl (8.4-10.2); CARBON DIOXIDE 25 mmol/L (21-31); CHLORIDE 105 mmol/L (97-110); CREATININE 0.53 mg/dl (0.61-1.24); Estimated GFR > 60 mL/min (>60); GLUCOSE 90 mg/dl (70-220); POTASSIUM 3.8 mmol/L (3.5-5.1); SODIUM 140 mmol/L (135-144)
[2018-08-06] MEDS: OXYCODONE/ACETAMINOPHEN (10/325) TAB PO (20:13)
== END 2018-08-06 20:30 | disposition home or self-care (01) ==
LOC: E/R 14:13
DX: G89.29 Other chronic pain (principal); N30.00 Acute cystitis without hematuria; R10.9 Unspecified abdominal pain; Z91.040 Latex allergy status
CPT/HCPCS: 36415; 80048; 81001; 83605; 85025; 85610; 85730; 87040; 87086; 93005; 96374; 99284-25

== ENCOUNTER 2018-08-22 10:23 | Inpatient (IN) | payer OTHER ==
[2018-08-22] MEDS ORDERED: ONDANSETRON 4 MG INJ IV (12:30)
[2018-08-22] MEDS ORDERED: NACL 0.9% 3 ML SYG IV (12:30)
[2018-08-22] MEDS: GABAPENTIN 100 MG CAP PO ×2 (13:10→21:18)
[2018-08-22] MEDS: morphine LIQ (10 MG/5 ML) CUP PO ×5 (13:10→23:37)
[2018-08-23] MEDS: morphine LIQ (10 MG/5 ML) CUP PO ×3 (01:27→08:52)
[2018-08-23] MEDS: GABAPENTIN 100 MG CAP PO ×3 (08:46→21:42)
[2018-08-23] MEDS: ENOXAPARIN 40 MG/0.4 ML SYG SC (08:49)
[2018-08-23] MEDS: HYDROCODONE/APAP (7.5/325) TAB PO ×2 (12:22→18:17)
[2018-08-23] MEDS ORDERED: COLLAGENASE 5 GM (UD JAR) TOP (12:46)
[2018-08-23] MEDS ORDERED: PENDING SANTYL ORDER FOR WOUND CARE XX (13:00)
[2018-08-23 15:42] LABS: ADD MAN DIFF? NO
[2018-08-23 15:45] LABS: WHITE BLOOD COUNT 6.9 10^3/ul (4.8-10.8)
[2018-08-23 15:45] LABS: BASOPHILS % 0.4 % (0.0-2.0); EOSINOPHILS # 0.5 10^3/ul (0.0-0.5); EOSINOPHILS % 6.7 % (0.0-7.0); HEMATOCRIT 41.4 % (42.0-52.0); LYMPHOCYTES # 1.9 10^3/ul (0.8-2.9); LYMPHOCYTES % 27.3 % (15.0-51.0); MEAN CORPUSCULAR HEMOGLOBIN 27.8 pg (29.0-33.0); MEAN CORPUSCULAR HGB CONC 31.4 g/dl (32.0-37.0); MEAN CORPUSCULAR VOLUME 88.5 fl (82.0-101.0); MEAN PLATELET VOLUME 9.5 fl (7.4-10.4); MONOCYTE # 0.7 10^3/ul (0.3-0.9); MONOCYTES % 9.7 % (0.0-11.0); NEUTROPHIL # 3.8 10^3/ul (1.6-7.5); NEUTROPHILS % 55.6 % (39.0-77.0); PLATELET COUNT 272 10^3/UL (140-415); RED BLOOD COUNT 4.68 10^6/ul (4.70-6.10); RED CELL DISTRIBUTION WIDTH 13.6 % (11.5-14.5)
[2018-08-23 16:04] LABS: HEMOGLOBIN A1C 5.4 % (0-5.9)
[2018-08-23 16:04] LABS: INR 0.95; PROTIME 12.8 Sec (11.9-14.9)
[2018-08-23 16:05] LABS: PARTIAL THROMBOPLASTIN TIME 33.4 Sec (23.0-35.0)
[2018-08-23 17:38] LABS: ALANINE AMINOTRANSFERASE 297 IU/L (13-69); ALBUMIN 3.6 g/dl (3.3-4.9); ALBUMIN/GLOBULIN RATIO 0.94; ALKALINE PHOSPHATASE 206 IU/L (42-121); ANION GAP 11 (5-13); ASPARTATE AMINO TRANSFERASE 149 IU/L (15-46); BILIRUBIN,INDIRECT 0.2 mg/dl (0-1.1); BILIRUBIN,TOTAL 0.2 mg/dl (0.2-1.3); BLOOD UREA NITROGEN 16 mg/dl (7-20); CARBON DIOXIDE 28 mmol/L (21-31); CHLORIDE 100 mmol/L (97-110); CHOL/HDL RATIO 7.2 RATIO; CHOLESTEROL 175 mg/dl (100-200); CREATININE 0.61 mg/dl (0.61-1.24); Estimated GFR > 60 mL/min (>60); GLUCOSE 129 mg/dl (70-220); HDL CHOLESTEROL 24 mg/dl (28-63); LDL CHOLESTEROL,CALCULATED 96 mg/dl; MAGNESIUM 1.6 mg/dl (1.7-2.5); PHOSPHORUS 4.4 mg/dl (2.5-4.9); POTASSIUM 3.8 mmol/L (3.5-5.1); SODIUM 139 mmol/L (135-144); TOTAL PROTEIN 7.4 g/dl (6.1-8.1); TRIGLYCERIDES 276 mg/dl (0-149)
[2018-08-24] MEDS: HYDROCODONE/APAP (7.5/325) TAB PO ×4 (00:13→20:31)
[2018-08-24] MEDS: GABAPENTIN 100 MG CAP PO ×3 (08:33→20:32)
[2018-08-24] MEDS: ENOXAPARIN 40 MG/0.4 ML SYG SC (08:42)
[2018-08-24] MEDS: MAGNESIUM OXIDE 400 MG TAB PO (12:15)
[2018-08-24] MEDS ORDERED: COLLAGENASE 5 GM (UD JAR) TOP (16:00)
[2018-08-24] MEDS: LEVOFLOXACIN 500 MG TAB PO (17:24)
[2018-08-25] MEDS: LEVOFLOXACIN 500 MG TAB PO (05:47)
[2018-08-25] MEDS: MAGNESIUM OXIDE 400 MG TAB PO ×2 (05:47→08:21)
[2018-08-25] MEDS: HYDROCODONE/APAP (7.5/325) TAB PO ×3 (07:38→23:15)
[2018-08-25] MEDS: COLLAGENASE 5 GM (UD JAR) TOP (08:21)
[2018-08-25] MEDS: GABAPENTIN 100 MG CAP PO ×3 (08:22→20:06)
[2018-08-25] MEDS: ENOXAPARIN 40 MG/0.4 ML SYG SC (08:25)
[2018-08-25] MEDS: morphine 4 MG/ML VIAL IV ×2 (14:49→20:06)
[2018-08-25] MEDS: CEFEPIME 1GM/50 ML (PMX) 50 ML IVPB ×2 (14:55→22:07)
[2018-08-26] MEDS: MAGNESIUM SULFATE 1 GM/D5W 100 ML IVPB (07:30)
[2018-08-26] MEDS: CEFEPIME 1GM/50 ML (PMX) 50 ML IVPB ×2 (08:10→22:10)
[2018-08-26] MEDS: GABAPENTIN 100 MG CAP PO ×3 (08:10→20:13)
[2018-08-26] MEDS: ENOXAPARIN 40 MG/0.4 ML SYG SC (08:12)
[2018-08-26] MEDS: COLLAGENASE 5 GM (UD JAR) TOP (08:12)
[2018-08-26] MEDS: HYDROCODONE/APAP (7.5/325) TAB PO ×2 (08:45→17:57)
[2018-08-26 10:14] LABS: ADD MAN DIFF? NO
[2018-08-26 10:17] LABS: WHITE BLOOD COUNT 8.8 10^3/ul (4.8-10.8)
[2018-08-26 10:17] LABS: BASOPHIL # 0.1 10^3/ul (0.0-0.1); BASOPHILS % 0.8 % (0.0-2.0); EOSINOPHILS # 0.5 10^3/ul (0.0-0.5); EOSINOPHILS % 6.1 % (0.0-7.0); HEMATOCRIT 46.2 % (42.0-52.0); HEMOGLOBIN 14.4 g/dl (14.0-18.0); LYMPHOCYTES # 2.8 10^3/ul (0.8-2.9); LYMPHOCYTES % 31.3 % (15.0-51.0); MEAN CORPUSCULAR HGB CONC 31.2 g/dl (32.0-37.0); MEAN CORPUSCULAR VOLUME 89.7 fl (82.0-101.0); MEAN PLATELET VOLUME 9.3 fl (7.4-10.4); MONOCYTE # 0.9 10^3/ul (0.3-0.9); MONOCYTES % 10.6 % (0.0-11.0); NEUTROPHIL # 4.3 10^3/ul (1.6-7.5); NEUTROPHILS % 48.4 % (39.0-77.0); PLATELET COUNT 331 10^3/UL (140-415); RED BLOOD COUNT 5.15 10^6/ul (4.70-6.10); RED CELL DISTRIBUTION WIDTH 13.8 % (11.5-14.5)
[2018-08-26 10:34] LABS: ANION GAP 13 (5-13); BLOOD UREA NITROGEN 25 mg/dl (7-20); CALCIUM 9.3 mg/dl (8.4-10.2); CARBON DIOXIDE 23 mmol/L (21-31); CHLORIDE 106 mmol/L (97-110); CREATININE 0.55 mg/dl (0.61-1.24); Estimated GFR > 60 mL/min (>60); GLUCOSE 144 mg/dl (70-220); MAGNESIUM 1.6 mg/dl (1.7-2.5); POTASSIUM 4.2 mmol/L (3.5-5.1); SODIUM 142 mmol/L (135-144)
[2018-08-26 10:34] LABS: PHOSPHORUS 3.4 mg/dl (2.5-4.9)
[2018-08-26] MEDS: morphine LIQ (10 MG/5 ML) CUP PO ×2 (11:09→15:11)
[2018-08-26] MEDS: MAGNESIUM SULFATE 2 GM/50 ML 50 ML IVPB (13:30)
[2018-08-26 14:42] LABS: C-REACTIVE PROTEIN 1.6 mg/dl (0.0-0.9)
[2018-08-26 15:39] LABS: ERYTHROCYTE SEDIMENTATION RATE 35 mm/Hr (0-15)
[2018-08-27] MEDS: CEFEPIME 1GM/50 ML (PMX) 50 ML IVPB (08:37)
[2018-08-27] MEDS: AMMONIUM LACTATE 12% 225 GM LOT TOP (08:38)
[2018-08-27] MEDS: COLLAGENASE 5 GM (UD JAR) TOP (08:38)
[2018-08-27] MEDS: ENOXAPARIN 40 MG/0.4 ML SYG SC (08:38)
[2018-08-27] MEDS: GABAPENTIN 100 MG CAP PO ×3 (08:38→21:16)
[2018-08-27] MEDS: HYDROCODONE/APAP (7.5/325) TAB PO ×3 (08:43→21:18)
[2018-08-27] MEDS: SODIUM HYPOCHLORITE (1/40) 1 APPLIC BTL IRR (08:44)
[2018-08-27 10:58] LABS: ALANINE AMINOTRANSFERASE 159 IU/L (13-69); ALBUMIN 3.9 g/dl (3.3-4.9); ALKALINE PHOSPHATASE 183 IU/L (42-121); ANION GAP 6 (5-13); ASPARTATE AMINO TRANSFERASE 67 IU/L (15-46); BILIRUBIN,INDIRECT 0.1 mg/dl (0-1.1); BILIRUBIN,TOTAL 0.1 mg/dl (0.2-1.3); BLOOD UREA NITROGEN 22 mg/dl (7-20); CALCIUM 9.1 mg/dl (8.4-10.2); CARBON DIOXIDE 27 mmol/L (21-31); CHLORIDE 109 mmol/L (97-110); CREATININE 0.55 mg/dl (0.61-1.24); Estimated GFR > 60 mL/min (>60); GLUCOSE 88 mg/dl (70-220); MAGNESIUM 1.9 mg/dl (1.7-2.5); POTASSIUM 4.5 mmol/L (3.5-5.1); SODIUM 142 mmol/L (135-144); TOTAL PROTEIN 8.2 g/dl (6.1-8.1)
[2018-08-27] MEDS: morphine LIQ (10 MG/5 ML) CUP PO ×2 (11:34→17:26)
[2018-08-27] MEDS ORDERED: VANCOMYCIN IV PER PHARMACY XX (12:00)
[2018-08-27] MEDS: VANCOMYCIN HCL 2 GM in SOD CHLORIDE 0.9% 500 ML IVPB ×2 (12:46→22:51)
[2018-08-27] MEDS: CLOTRIMAZOLE 1% 30 GM CR TOP ×2 (12:46→21:19)
[2018-08-27] MEDS: HYDROmorphONE 0.5 MG/0.5 ML SYG IM ×2 (18:27→22:47)
[2018-08-28] MEDS ORDERED: VANCOMYCIN HCL 1.75 GM in SOD CHLORIDE 0.9% 500 ML IVPB
[2018-08-28] MEDS: HYDROmorphONE 0.5 MG/0.5 ML SYG IM ×5 (03:05→19:59)
[2018-08-28] MEDS: ENOXAPARIN 40 MG/0.4 ML SYG SC (08:14)
[2018-08-28] MEDS: SODIUM HYPOCHLORITE (1/40) 1 APPLIC BTL IRR (08:15)
[2018-08-28] MEDS: GABAPENTIN 100 MG CAP PO ×3 (08:16→20:03)
[2018-08-28] MEDS: CEFEPIME 1GM/50 ML (PMX) 50 ML IVPB ×2 (08:16→20:05)
[2018-08-28] MEDS: CLOTRIMAZOLE 1% 30 GM CR TOP ×2 (08:17→20:05)
[2018-08-28] MEDS: AMMONIUM LACTATE 12% 225 GM LOT TOP (08:17)
[2018-08-28] MEDS: COLLAGENASE 5 GM (UD JAR) TOP (08:17)
[2018-08-28] MEDS: VANCOMYCIN HCL 1.75 GM in SOD CHLORIDE 0.9% 500 ML IVPB ×2 (11:17→22:24)
[2018-08-28 12:55] LABS: ALANINE AMINOTRANSFERASE 442 IU/L (13-69); ALBUMIN 3.6 g/dl (3.3-4.9); ALBUMIN/GLOBULIN RATIO 0.87; ALKALINE PHOSPHATASE 180 IU/L (42-121); ANION GAP 2 (5-13); ASPARTATE AMINO TRANSFERASE 295 IU/L (15-46); BILIRUBIN,INDIRECT 0.1 mg/dl (0-1.1); BILIRUBIN,TOTAL 0.1 mg/dl (0.2-1.3); BLOOD UREA NITROGEN 22 mg/dl (7-20); CALCIUM 8.9 mg/dl (8.4-10.2); CARBON DIOXIDE 30 mmol/L (21-31); CHLORIDE 108 mmol/L (97-110); CREATININE 0.58 mg/dl (0.61-1.24); Estimated GFR > 60 mL/min (>60); GLUCOSE 113 mg/dl (70-220); POTASSIUM 4.4 mmol/L (3.5-5.1); SODIUM 140 mmol/L (135-144); TOTAL PROTEIN 7.7 g/dl (6.1-8.1)
[2018-08-29] MEDS: HYDROmorphONE 0.5 MG/0.5 ML SYG IM ×5 (00:03→19:54)
[2018-08-29] MEDS: GABAPENTIN 100 MG CAP PO ×3 (08:34→20:08)
[2018-08-29] MEDS: CEFEPIME 1GM/50 ML (PMX) 50 ML IVPB ×2 (08:34→20:08)
[2018-08-29] MEDS: ENOXAPARIN 40 MG/0.4 ML SYG SC (08:36)
[2018-08-29] MEDS: COLLAGENASE 5 GM (UD JAR) TOP (08:36)
[2018-08-29] MEDS: AMMONIUM LACTATE 12% 225 GM LOT TOP (08:37)
[2018-08-29] MEDS: CLOTRIMAZOLE 1% 30 GM CR TOP ×2 (08:37→20:08)
[2018-08-29] MEDS: SODIUM HYPOCHLORITE (1/40) 1 APPLIC BTL IRR (09:36)
[2018-08-29] MEDS: VANCOMYCIN HCL 1.75 GM in SOD CHLORIDE 0.9% 500 ML IVPB ×2 (12:17→23:26)
[2018-08-29 23:10] LABS: VANCOMYCIN,TROUGH 14.5 ug/ml (10.0-20.0)
[2018-08-30] MEDS: HYDROmorphONE 0.5 MG/0.5 ML SYG IM ×5 (01:47→23:46)
[2018-08-30] MEDS ORDERED: ONDANSETRON 4 MG INJ (07:00)
[2018-08-30] MEDS: CEFEPIME 1GM/50 ML (PMX) 50 ML IVPB ×2 (08:07→20:42)
[2018-08-30] MEDS: ENOXAPARIN 40 MG/0.4 ML SYG SC (08:08)
[2018-08-30] MEDS: GABAPENTIN 100 MG CAP PO ×3 (08:08→20:43)
[2018-08-30] MEDS: SODIUM HYPOCHLORITE (1/40) 1 APPLIC BTL IRR (08:10)
[2018-08-30] MEDS: COLLAGENASE 5 GM (UD JAR) TOP (08:11)
[2018-08-30] MEDS: AMMONIUM LACTATE 12% 225 GM LOT TOP (08:11)
[2018-08-30] MEDS: CLOTRIMAZOLE 1% 30 GM CR TOP ×3 (08:11→21:00)
[2018-08-30] MEDS: VANCOMYCIN HCL 1.75 GM in SOD CHLORIDE 0.9% 500 ML IVPB ×2 (10:45→23:46)
[2018-08-30] MEDS ORDERED: SODIUM CL BACTERIOSTATIC 30 ML INJ (15:28)
[2018-08-30] MEDS ORDERED: ETOMIDATE 20 MG INJ (16:19)
[2018-08-30] MEDS ORDERED: FENTAnyl 50 MCG/ML VIAL (16:19)
[2018-08-30] MEDS ORDERED: MIDAZOLAM 1 MG/ML 2 ML INJ (16:19)
[2018-08-30] MEDS ORDERED: METOCLOPRAMIDE 10 MG INJ (16:20)
[2018-08-30] MEDS ORDERED: ROPIVACAINE 0.5 % 30 ML VIAL ×2 (16:25→16:26)
[2018-08-30] MEDS ORDERED: DIPHENHYDRAMINE 50 MG INJ IV (16:30)
[2018-08-30] MEDS ORDERED: hydrALAzine 20 MG INJ IV (16:30)
[2018-08-30] MEDS ORDERED: LEVALBUTEROL (NEB) 1.25 MG/0.5 ML AMP HHN (16:30)
[2018-08-30] MEDS ORDERED: ONDANSETRON 4 MG INJ IV (16:30)
[2018-08-30] MEDS ORDERED: IPRATROPIUM (NEB) 0.5 MG/2.5 ML AMP HHN (16:30)
[2018-08-30] MEDS ORDERED: HYDROmorphONE 1 MG/5 ML IV SYRINGE IV (16:30)
[2018-08-30] MEDS ORDERED: FENTAnyl 50 MCG/ML VIAL IV (16:30)
[2018-08-30] MEDS: BACITRACIN 50000 UNITS INJ (17:43)
[2018-08-30] MEDS: POLYMYXIN B 500000 UNIT INJ (17:44)
[2018-08-30] MEDS ORDERED: GENTAMICIN 80 MG INJ (17:50)
[2018-08-30] MEDS ORDERED: PHENYLephrine (100 MCG/ML) 5ML SYG (17:59)
[2018-08-30] MEDS: VANCOMYCIN 1 GM INJ (18:08)
[2018-08-30] MEDS: TOBRAMYCIN 1.2 GM POWDER (18:08)
[2018-08-30] MEDS: HYDROmorphONE 1 MG/5 ML IV SYRINGE IV (19:19)
[2018-08-30] MEDS: FENTAnyl 50 MCG/ML VIAL IV (19:20)
[2018-08-30] MEDS: LABETALOL HCL 20MG INJ IV (19:20)
[2018-08-31] MEDS: HYDROmorphONE 0.5 MG/0.5 ML SYG IM ×5 (03:49→21:03)
[2018-08-31] MEDS: GABAPENTIN 100 MG CAP PO ×3 (09:00→21:03)
[2018-08-31] MEDS: COLLAGENASE 5 GM (UD JAR) TOP (09:01)
[2018-08-31] MEDS: CEFEPIME 1GM/50 ML (PMX) 50 ML IVPB ×2 (09:01→21:02)
[2018-08-31] MEDS: ENOXAPARIN 40 MG/0.4 ML SYG SC (09:05)
[2018-08-31] MEDS: AMMONIUM LACTATE 12% 225 GM LOT TOP (09:17)
[2018-08-31] MEDS: SODIUM HYPOCHLORITE (1/40) 1 APPLIC BTL IRR (09:17)
[2018-08-31] MEDS: CLOTRIMAZOLE 1% 30 GM CR TOP ×2 (09:18→21:04)
[2018-08-31] MEDS: VANCOMYCIN HCL 1.75 GM in SOD CHLORIDE 0.9% 500 ML IVPB ×2 (11:15→23:27)
[2018-08-31] MEDS: RANITIDINE 150 MG TAB PO (21:02)
[2018-09-01] MEDS: HYDROmorphONE 0.5 MG/0.5 ML SYG IM ×5 (01:07→20:55)
[2018-09-01] MEDS: GABAPENTIN 100 MG CAP PO ×3 (08:24→20:43)
[2018-09-01] MEDS: CEFEPIME 1GM/50 ML (PMX) 50 ML IVPB ×2 (08:24→20:43)
[2018-09-01] MEDS: AMMONIUM LACTATE 12% 225 GM LOT TOP (08:25)
[2018-09-01] MEDS: SODIUM HYPOCHLORITE (1/40) 1 APPLIC BTL IRR (08:25)
[2018-09-01] MEDS: COLLAGENASE 5 GM (UD JAR) TOP (08:25)
[2018-09-01] MEDS: CLOTRIMAZOLE 1% 30 GM CR TOP ×2 (08:26→20:44)
[2018-09-01] MEDS: ENOXAPARIN 40 MG/0.4 ML SYG SC (08:27)
[2018-09-01] MEDS: VANCOMYCIN HCL 1.75 GM in SOD CHLORIDE 0.9% 500 ML IVPB ×2 (10:03→22:12)
[2018-09-01] MEDS: HYDROCODONE/APAP (7.5/325) TAB PO ×3 (13:23→22:12)
[2018-09-01] MEDS: IOHEXOL 300MG/ML 150 ML BTL (13:55)
[2018-09-01] MEDS: SOD CHLORIDE 0.9% 100 ML (13:56)
[2018-09-01] MEDS: RANITIDINE 150 MG TAB PO (20:43)
[2018-09-02] MEDS: HYDROmorphONE 0.5 MG/0.5 ML SYG IM ×3 (01:03→09:44)
[2018-09-02] MEDS: morphine LIQ (10 MG/5 ML) CUP PO ×2 (02:46→22:51)
[2018-09-02] MEDS: GABAPENTIN 100 MG CAP PO ×2 (08:37→13:00)
[2018-09-02] MEDS: CEFEPIME 1GM/50 ML (PMX) 50 ML IVPB ×2 (08:37→20:51)
[2018-09-02] MEDS: ENOXAPARIN 40 MG/0.4 ML SYG SC (08:39)
[2018-09-02] MEDS: AMMONIUM LACTATE 12% 225 GM LOT TOP (08:46)
[2018-09-02] MEDS: SODIUM HYPOCHLORITE (1/40) 1 APPLIC BTL IRR (08:46)
[2018-09-02] MEDS: COLLAGENASE 5 GM (UD JAR) TOP (08:47)
[2018-09-02] MEDS: CLOTRIMAZOLE 1% 30 GM CR TOP ×2 (08:47→20:50)
[2018-09-02 10:41] LABS: ADD MAN DIFF? NO
[2018-09-02 10:55] LABS: BASOPHIL # 0.1 10^3/ul (0.0-0.1); BASOPHILS % 0.4 % (0.0-2.0); EOSINOPHILS # 0.6 10^3/ul (0.0-0.5); HEMATOCRIT 38.4 % (42.0-52.0); LYMPHOCYTES # 2.8 10^3/ul (0.8-2.9); LYMPHOCYTES % 23.1 % (15.0-51.0); MEAN CORPUSCULAR HEMOGLOBIN 28.3 pg (29.0-33.0); MEAN CORPUSCULAR HGB CONC 31.3 g/dl (32.0-37.0); MEAN CORPUSCULAR VOLUME 90.6 fl (82.0-101.0); MEAN PLATELET VOLUME 9.1 fl (7.4-10.4); MONOCYTE # 1.1 10^3/ul (0.3-0.9); MONOCYTES % 9.5 % (0.0-11.0); NEUTROPHIL # 7.3 10^3/ul (1.6-7.5); NEUTROPHILS % 60.8 % (39.0-77.0); PLATELET COUNT 327 10^3/UL (140-415); RED BLOOD COUNT 4.24 10^6/ul (4.70-6.10); RED CELL DISTRIBUTION WIDTH 14.4 % (11.5-14.5)
[2018-09-02] MEDS: HYDROCODONE/APAP (7.5/325) TAB PO ×2 (11:09→17:35)
[2018-09-02 11:24] LABS: ALANINE AMINOTRANSFERASE 79 IU/L (13-69); ALBUMIN 3.8 g/dl (3.3-4.9); ALBUMIN/GLOBULIN RATIO 0.97; ALKALINE PHOSPHATASE 142 IU/L (42-121); ANION GAP 9 (5-13); ASPARTATE AMINO TRANSFERASE 48 IU/L (15-46); BILIRUBIN,INDIRECT 0.1 mg/dl (0-1.1); BILIRUBIN,TOTAL 0.1 mg/dl (0.2-1.3); BLOOD UREA NITROGEN 24 mg/dl (7-20); CALCIUM 9.7 mg/dl (8.4-10.2); CARBON DIOXIDE 27 mmol/L (21-31); CHLORIDE 106 mmol/L (97-110); CREATININE 0.66 mg/dl (0.61-1.24); Estimated GFR > 60 mL/min (>60); GLUCOSE 106 mg/dl (70-220); MAGNESIUM 1.6 mg/dl (1.7-2.5); PHOSPHORUS 4.9 mg/dl (2.5-4.9); POTASSIUM 4.6 mmol/L (3.5-5.1); SODIUM 142 mmol/L (135-144); TOTAL PROTEIN 7.7 g/dl (6.1-8.1)
[2018-09-02] MEDS: VANCOMYCIN HCL 1.75 GM in SOD CHLORIDE 0.9% 500 ML IVPB ×2 (12:12→22:51)
[2018-09-02] MEDS: HYDROmorphONE 2 MG TAB PO ×2 (15:45→19:46)
[2018-09-02] MEDS: RANITIDINE 150 MG TAB PO (18:53)
[2018-09-02] MEDS: GABAPENTIN 300 MG CAP PO (20:51)
[2018-09-03] MEDS: HYDROmorphONE 2 MG TAB PO ×4 (00:02→20:37)
[2018-09-03] MEDS: ENOXAPARIN 40 MG/0.4 ML SYG SC (08:51)
[2018-09-03] MEDS: COLLAGENASE 5 GM (UD JAR) TOP (08:53)
[2018-09-03] MEDS: CEFEPIME 1GM/50 ML (PMX) 50 ML IVPB ×2 (08:53→20:38)
[2018-09-03] MEDS: SODIUM HYPOCHLORITE (1/40) 1 APPLIC BTL IRR (08:53)
[2018-09-03] MEDS: GABAPENTIN 300 MG CAP PO ×3 (08:53→20:37)
[2018-09-03] MEDS: CLOTRIMAZOLE 1% 30 GM CR TOP ×2 (08:54→20:33)
[2018-09-03] MEDS: AMMONIUM LACTATE 12% 225 GM LOT TOP (08:54)
[2018-09-03] MEDS: VANCOMYCIN HCL 1.75 GM in SOD CHLORIDE 0.9% 500 ML IVPB ×2 (11:34→23:20)
[2018-09-03] MEDS: MUPIROCIN 2% 22 GM OINT TOP ×2 (12:19→20:37)
[2018-09-03] MEDS: HYDROCODONE/APAP (7.5/325) TAB PO ×2 (14:17→21:46)
[2018-09-03 16:33] LABS: ADD MAN DIFF? NO
[2018-09-03 16:35] LABS: BASOPHILS % 0.3 % (0.0-2.0); EOSINOPHILS # 0.6 10^3/ul (0.0-0.5); EOSINOPHILS % 4.7 % (0.0-7.0); HEMATOCRIT 41.3 % (42.0-52.0); HEMOGLOBIN 12.7 g/dl (14.0-18.0); LYMPHOCYTES % 23.9 % (15.0-51.0); MEAN CORPUSCULAR HEMOGLOBIN 28.2 pg (29.0-33.0); MEAN CORPUSCULAR HGB CONC 30.8 g/dl (32.0-37.0); MEAN CORPUSCULAR VOLUME 91.8 fl (82.0-101.0); MEAN PLATELET VOLUME 9.1 fl (7.4-10.4); MONOCYTE # 0.8 10^3/ul (0.3-0.9); MONOCYTES % 6.3 % (0.0-11.0); NEUTROPHIL # 7.9 10^3/ul (1.6-7.5); NEUTROPHILS % 63.7 % (39.0-77.0); PLATELET COUNT 380 10^3/UL (140-415); RED CELL DISTRIBUTION WIDTH 13.8 % (11.5-14.5)
[2018-09-03 16:35] LABS: WHITE BLOOD COUNT 12.4 10^3/ul (4.8-10.8)
[2018-09-03 16:55] LABS: ANION GAP 6 (5-13); BLOOD UREA NITROGEN 29 mg/dl (7-20); CALCIUM 9.5 mg/dl (8.4-10.2); CARBON DIOXIDE 26 mmol/L (21-31); CHLORIDE 107 mmol/L (97-110); CREATININE 0.52 mg/dl (0.61-1.24); Estimated GFR > 60 mL/min (>60); GLUCOSE 114 mg/dl (70-220); POTASSIUM 4.6 mmol/L (3.5-5.1); SODIUM 139 mmol/L (135-144)
[2018-09-03] MEDS: RANITIDINE 150 MG TAB PO (20:37)
[2018-09-04] MEDS: HYDROmorphONE 2 MG TAB PO ×4 (05:36→21:48)
[2018-09-04] MEDS: GABAPENTIN 300 MG CAP PO ×3 (08:30→20:31)
[2018-09-04] MEDS: CEFEPIME 1GM/50 ML (PMX) 50 ML IVPB ×2 (08:30→20:41)
[2018-09-04] MEDS: HYDROCODONE/APAP (7.5/325) TAB PO ×2 (08:30→15:58)
[2018-09-04] MEDS: COLLAGENASE 5 GM (UD JAR) TOP (08:31)
[2018-09-04] MEDS: SODIUM HYPOCHLORITE (1/40) 1 APPLIC BTL IRR (08:31)
[2018-09-04] MEDS: AMMONIUM LACTATE 12% 225 GM LOT TOP (08:31)
[2018-09-04] MEDS: CLOTRIMAZOLE 1% 30 GM CR TOP ×2 (08:32→20:34)
[2018-09-04] MEDS: MUPIROCIN 2% 22 GM OINT TOP ×2 (08:32→20:34)
[2018-09-04] MEDS: ENOXAPARIN 40 MG/0.4 ML SYG SC (08:33)
[2018-09-04] MEDS ORDERED: LIDOCAINE 1% (MPF) 5 ML VIAL SC (11:30)
[2018-09-04] MEDS: VANCOMYCIN HCL 1.75 GM in SOD CHLORIDE 0.9% 500 ML IVPB (16:54)
[2018-09-04] MEDS: BACLOFEN 10 MG TAB PO (20:31)
[2018-09-04] MEDS: RANITIDINE 150 MG TAB PO (20:31)
[2018-09-05] MEDS: HYDROCODONE/APAP (7.5/325) TAB PO ×3 (05:55→21:29)
[2018-09-05] MEDS: VANCOMYCIN HCL 1.75 GM in SOD CHLORIDE 0.9% 500 ML IVPB ×2 (05:56→17:02)
[2018-09-05] MEDS: GABAPENTIN 300 MG CAP PO ×3 (08:25→21:18)
[2018-09-05] MEDS: BACLOFEN 10 MG TAB PO ×3 (08:25→21:18)
[2018-09-05] MEDS: ENOXAPARIN 40 MG/0.4 ML SYG SC (08:26)
[2018-09-05] MEDS: COLLAGENASE 5 GM (UD JAR) TOP (08:29)
[2018-09-05] MEDS: MUPIROCIN 2% 22 GM OINT TOP ×2 (08:30→21:19)
[2018-09-05] MEDS: AMMONIUM LACTATE 12% 225 GM LOT TOP (08:30)
[2018-09-05] MEDS: CLOTRIMAZOLE 1% 30 GM CR TOP ×2 (08:31→21:19)
[2018-09-05] MEDS: SODIUM HYPOCHLORITE (1/40) 1 APPLIC BTL IRR (08:31)
[2018-09-05] MEDS: CEFEPIME 2GM/50 ML IVPB ×2 (10:47→21:17)
[2018-09-05] MEDS: morphine LIQ (10 MG/5 ML) CUP PO (17:03)
[2018-09-05] MEDS: RANITIDINE 150 MG TAB PO (22:42)
[2018-09-05] MEDS: SOD CHLORIDE 0.9% 500 ML IV (23:40)
[2018-09-06 00:44] LABS: AMPHETAMINE/METHAMPHETAMINE Negative (NEGATIVE); BARBITURATES Negative (NEGATIVE); BENZODIAZEPINES Negative (NEGATIVE); CANNABINOIDS Positive (NEGATIVE); COCAINE Negative (NEGATIVE); OPIATES Positive (NEGATIVE)
[2018-09-06] MEDS: morphine LIQ (10 MG/5 ML) CUP PO (02:22)
[2018-09-06] MEDS: HYDROCODONE/APAP (7.5/325) TAB PO ×3 (03:41→20:54)
[2018-09-06 05:26] LABS: ADD MAN DIFF? NO
[2018-09-06 05:36] LABS: BASOPHIL # 0.1 10^3/ul (0.0-0.1); BASOPHILS % 0.6 % (0.0-2.0); EOSINOPHILS # 0.5 10^3/ul (0.0-0.5); EOSINOPHILS % 6.2 % (0.0-7.0); HEMATOCRIT 37.1 % (42.0-52.0); HEMOGLOBIN 11.4 g/dl (14.0-18.0); LYMPHOCYTES # 2.8 10^3/ul (0.8-2.9); LYMPHOCYTES % 32.8 % (15.0-51.0); MEAN CORPUSCULAR HEMOGLOBIN 28.4 pg (29.0-33.0); MEAN CORPUSCULAR HGB CONC 30.7 g/dl (32.0-37.0); MEAN CORPUSCULAR VOLUME 92.5 fl (82.0-101.0); MONOCYTE # 0.9 10^3/ul (0.3-0.9); MONOCYTES % 10.6 % (0.0-11.0); NEUTROPHIL # 4.2 10^3/ul (1.6-7.5); NEUTROPHILS % 48.8 % (39.0-77.0); PLATELET COUNT 365 10^3/UL (140-415); RED BLOOD COUNT 4.01 10^6/ul (4.70-6.10); RED CELL DISTRIBUTION WIDTH 13.7 % (11.5-14.5)
[2018-09-06 05:36] LABS: WHITE BLOOD COUNT 8.7 10^3/ul (4.8-10.8)
[2018-09-06] MEDS: VANCOMYCIN HCL 1.75 GM in SOD CHLORIDE 0.9% 500 ML IVPB ×2 (05:59→18:03)
[2018-09-06 06:00] LABS: VANCOMYCIN,TROUGH 13.9 ug/ml (10.0-20.0)
[2018-09-06 06:16] LABS: PHOSPHORUS 4.1 mg/dl (2.5-4.9)
[2018-09-06 06:16] LABS: MAGNESIUM 1.6 mg/dl (1.7-2.5)
[2018-09-06 06:24] LABS: ALANINE AMINOTRANSFERASE 23 IU/L (13-69); ALBUMIN 3.6 g/dl (3.3-4.9); ALKALINE PHOSPHATASE 102 IU/L (42-121); ANION GAP 4 (5-13); ASPARTATE AMINO TRANSFERASE 16 IU/L (15-46); BLOOD UREA NITROGEN 26 mg/dl (7-20); CALCIUM 9.1 mg/dl (8.4-10.2); CARBON DIOXIDE 25 mmol/L (21-31); CHLORIDE 114 mmol/L (97-110); Estimated GFR > 60 mL/min (>60); GLUCOSE 103 mg/dl (70-220); SODIUM 143 mmol/L (135-144); TOTAL PROTEIN 7.6 g/dl (6.1-8.1)
[2018-09-06] MEDS: GABAPENTIN 300 MG CAP PO ×3 (08:13→20:53)
[2018-09-06] MEDS: BACLOFEN 10 MG TAB PO ×3 (08:13→20:54)
[2018-09-06] MEDS: ENOXAPARIN 40 MG/0.4 ML SYG SC (08:14)
[2018-09-06] MEDS: MUPIROCIN 2% 22 GM OINT TOP ×2 (09:00→20:55)
[2018-09-06] MEDS ORDERED: LIDOCAINE 1% (MPF) 5 ML VIAL SC ×2 (12:30)
[2018-09-06] MEDS: MAGNESIUM SULFATE 2 GM/50 ML 50 ML IVPB (13:32)
[2018-09-06] MEDS: CEFEPIME 2GM/50 ML IVPB (15:53)
[2018-09-06] MEDS: CLOTRIMAZOLE 1% 30 GM CR TOP ×2 (16:30→20:55)
[2018-09-06] MEDS: SODIUM HYPOCHLORITE (1/40) 1 APPLIC BTL IRR (16:30)
[2018-09-06] MEDS: COLLAGENASE 5 GM (UD JAR) TOP (16:30)
[2018-09-06] MEDS: AMMONIUM LACTATE 12% 225 GM LOT TOP (16:30)
[2018-09-06] MEDS: RANITIDINE 150 MG TAB PO (20:53)
[2018-09-07] MEDS: CEFEPIME 2GM/50 ML IVPB ×2 (03:26→11:19)
[2018-09-07] MEDS: HYDROCODONE/APAP (7.5/325) TAB PO ×3 (03:26→18:22)
[2018-09-07] MEDS: VANCOMYCIN HCL 1.75 GM in SOD CHLORIDE 0.9% 500 ML IVPB ×2 (06:09→18:23)
[2018-09-07] MEDS: GABAPENTIN 300 MG CAP PO ×3 (08:54→20:38)
[2018-09-07] MEDS: BACLOFEN 10 MG TAB PO ×3 (08:54→20:38)
[2018-09-07] MEDS: ENOXAPARIN 40 MG/0.4 ML SYG SC (08:58)
[2018-09-07] MEDS: AMMONIUM LACTATE 12% 225 GM LOT TOP (09:00)
[2018-09-07] MEDS: MUPIROCIN 2% 22 GM OINT TOP ×2 (09:00→20:40)
[2018-09-07] MEDS: CLOTRIMAZOLE 1% 30 GM CR TOP ×2 (09:00→20:40)
[2018-09-07] MEDS: COLLAGENASE 5 GM (UD JAR) TOP (16:00)
[2018-09-07] MEDS: SODIUM HYPOCHLORITE (1/40) 1 APPLIC BTL IRR (16:00)
[2018-09-07] MEDS: RANITIDINE 150 MG TAB PO (20:38)
[2018-09-08] MEDS: VANCOMYCIN HCL 1.75 GM in SOD CHLORIDE 0.9% 500 ML IVPB (05:57)
[2018-09-08] MEDS: HYDROCODONE/APAP (7.5/325) TAB PO (06:04)
[2018-09-08] MEDS: CLOTRIMAZOLE 1% 30 GM CR TOP (08:25)
[2018-09-08] MEDS: AMMONIUM LACTATE 12% 225 GM LOT TOP (08:25)
[2018-09-08] MEDS: MUPIROCIN 2% 22 GM OINT TOP (08:26)
[2018-09-08] MEDS: ENOXAPARIN 40 MG/0.4 ML SYG SC (08:26)
[2018-09-08] MEDS: COLLAGENASE 5 GM (UD JAR) TOP (08:26)
[2018-09-08] MEDS: GABAPENTIN 300 MG CAP PO (08:27)
[2018-09-08] MEDS: BACLOFEN 10 MG TAB PO (08:27)
[2018-09-08] MEDS: SODIUM HYPOCHLORITE (1/40) 1 APPLIC BTL IRR (08:28)
== END 2018-09-08 10:51 | disposition home health service (06) | DRG 463 ==
LOC: 2NE 09-05 07:30 → TEL 10:23 → 5EC 08-28 19:37
PROC: 0QBG0ZX Excision of Right Tibia, Open Approach, Diagnostic (ICD-10-PCS; principal; 2018-08-30 16:22)
PROC: 0JBQ0ZZ Excision of Right Foot Subcutaneous Tissue and Fascia, Open Approach (ICD-10-PCS; 2018-08-30 16:22)
PROC: 0JBQ0ZZ Excision of Right Foot Subcutaneous Tissue and Fascia, Open Approach (ICD-10-PCS; 2018-08-30 16:22)
PROC: 0SHF08Z Insertion of Spacer into Right Ankle Joint, Open Approach (ICD-10-PCS; 2018-08-30 16:22)
DX: M86.8X7 Other osteomyelitis, ankle and foot (principal); L97.319 Non-pressure chronic ulcer of right ankle with unspecified severity; G82.50 Quadriplegia, unspecified; L89.153 Pressure ulcer of sacral region, stage 3; N39.0 Urinary tract infection, site not specified; F17.210 Nicotine dependence, cigarettes, uncomplicated; Q05.9 Spina bifida, unspecified; D64.9 Anemia, unspecified; E66.01 Morbid (severe) obesity due to excess calories; B96.1 Klebsiella pneumoniae [K. pneumoniae] as the cause of diseases classified elsewhere; E78.1 Pure hyperglyceridemia; F17.200 Nicotine dependence, unspecified, uncomplicated; G62.9 Polyneuropathy, unspecified; Z68.37 Body mass index [BMI] 37.0-37.9, adult; Z16.24 Resistance to multiple antibiotics
CPT/HCPCS: 71045; 72193; 73610-RT; 73700; 73721; 76937; 80048; 80053; 80061; 80202; 80307; 83036; 83735; 84100; 84443; 85025; 85610; 85651; 85730; 86140; 87040; 87070; 87075; 87081; 87086; 87102; 87116; 88304; 93922

== ENCOUNTER 2018-09-21 10:25 | Inpatient (IN) | payer OTHER ==
[2018-09-21] MEDS: HYDROCODONE/APAP (5/325) TAB PO (13:09)
[2018-09-21] MEDS ORDERED: LIDOCAINE 1% (MDV) 20 ML INJ (13:14)
[2018-09-21] MEDS: LIDOCAINE 1% (MPF) 5 ML VIAL INJ (13:24)
[2018-09-21] MEDS ORDERED: LIDOCAINE 1% (MPF) 5 ML VIAL SC (14:00)
[2018-09-21] MEDS ORDERED: VANCOMYCIN IV PER PHARMACY XX (16:30)
[2018-09-21] MEDS ORDERED: BISACODYL 10 MG SUPP PR (16:30)
[2018-09-21] MEDS ORDERED: NACL 0.9% 3 ML SYG IV (16:30)
[2018-09-21] MEDS ORDERED: MAGNESIUM HYDROXIDE 30ML CUP PO (16:30)
[2018-09-21] MEDS ORDERED: ONDANSETRON 4 MG INJ IV (16:30)
[2018-09-21] MEDS ORDERED: DOCUSATE SODIUM 100 MG CAP PO (16:30)
[2018-09-21] MEDS ORDERED: ACETAMINOPHEN 325 MG TAB PO (16:30)
[2018-09-21] MEDS ORDERED: ZOLPIDEM 5 MG TAB PO (16:30)
[2018-09-21] MEDS ORDERED: ACETAMINOPHEN 650 MG SUPP PR (16:30)
[2018-09-21] MEDS ORDERED: BISACODYL (EC) 5 MG TAB PO (16:30)
[2018-09-21] MEDS: OXYCODONE/ACETAMINOPHEN (5/325) TAB PO (20:00)
[2018-09-21] MEDS: GABAPENTIN 300 MG CAP PO (23:26)
[2018-09-21] MEDS: LACTOBACILLUS RHAMNOSUS CAP PO (23:26)
[2018-09-21] MEDS: BACLOFEN 10 MG TAB PO (23:26)
[2018-09-21] MEDS: VANCOMYCIN HCL 2 GM in SOD CHLORIDE 0.9% 500 ML IVPB (23:26)
[2018-09-21] MEDS ORDERED: VITAMIN A & D 5 GM OINT PACKET TOP (23:37)
[2018-09-21] MEDS ORDERED: COLLAGENASE 5 GM (UD JAR) TOP (23:43)
[2018-09-22] MEDS ORDERED: PENDING SANTYL ORDER FOR WOUND CARE XX (01:00)
[2018-09-22] MEDS: OXYCODONE/ACETAMINOPHEN (5/325) TAB PO ×2 (01:59→08:23)
[2018-09-22] MEDS ORDERED: COLLAGENASE 5 GM (UD JAR) TOP (05:00)
[2018-09-22] MEDS: VANCOMYCIN HCL 1.75 GM in SOD CHLORIDE 0.9% 500 ML IVPB ×2 (06:48→17:38)
[2018-09-22] MEDS: COLLAGENASE 5 GM (UD JAR) TOP (06:49)
[2018-09-22] MEDS: BACLOFEN 10 MG TAB PO ×3 (08:23→20:30)
[2018-09-22] MEDS: GABAPENTIN 300 MG CAP PO ×3 (08:24→20:30)
[2018-09-22] MEDS: LACTOBACILLUS RHAMNOSUS CAP PO ×2 (08:24→20:30)
[2018-09-22] MEDS: OXYCODONE/ACETAMINOPHEN (10/325) TAB PO ×3 (14:45→20:34)
[2018-09-23] MEDS: OXYCODONE/ACETAMINOPHEN (10/325) TAB PO ×7 (01:05→23:16)
[2018-09-23] MEDS: VANCOMYCIN HCL 1.75 GM in SOD CHLORIDE 0.9% 500 ML IVPB ×2 (05:25→18:11)
[2018-09-23] MEDS: LACTOBACILLUS RHAMNOSUS CAP PO ×2 (08:41→20:50)
[2018-09-23] MEDS: BACLOFEN 10 MG TAB PO ×3 (08:41→20:50)
[2018-09-23] MEDS: COLLAGENASE 5 GM (UD JAR) TOP (08:41)
[2018-09-23] MEDS: GABAPENTIN 300 MG CAP PO ×3 (08:41→20:50)
[2018-09-23] MEDS ORDERED: LIDOCAINE 1% (MDV) 20 ML INJ (12:17)
[2018-09-23] MEDS: morphine 2 MG INJ IV ×3 (13:49→22:08)
[2018-09-23 17:52] LABS: BLOOD UREA NITROGEN 24 mg/dl (7-20)
[2018-09-23 17:58] LABS: VANCOMYCIN,TROUGH 11.4 ug/ml (10.0-20.0)
[2018-09-23] MEDS ORDERED: ALBUTEROL HFA 8 GM INHALER INH (18:00)
[2018-09-24] MEDS: morphine 2 MG INJ IV ×5 (02:11→22:48)
[2018-09-24] MEDS: VANCOMYCIN HCL 1.75 GM in SOD CHLORIDE 0.9% 500 ML IVPB (06:23)
[2018-09-24] MEDS: LACTOBACILLUS RHAMNOSUS CAP PO ×2 (08:26→20:48)
[2018-09-24] MEDS: BACLOFEN 10 MG TAB PO ×3 (08:26→20:49)
[2018-09-24] MEDS: GABAPENTIN 300 MG CAP PO ×3 (08:26→20:49)
[2018-09-24] MEDS: COLLAGENASE 5 GM (UD JAR) TOP (08:26)
[2018-09-24] MEDS: OXYCODONE/ACETAMINOPHEN (10/325) TAB PO ×3 (12:09→20:49)
[2018-09-24] MEDS: ZYVOX 600 MG TAB PO ×2 (15:20→23:42)
[2018-09-24] MEDS ORDERED: ZYVOX 600 MG TAB PO (21:00)
[2018-09-25] MEDS: morphine 2 MG INJ IV ×4 (05:08→22:33)
[2018-09-25] MEDS: OXYCODONE/ACETAMINOPHEN (10/325) TAB PO ×4 (06:30→21:27)
[2018-09-25 06:55] LABS: ADD MAN DIFF? NO
[2018-09-25 06:58] LABS: WHITE BLOOD COUNT 7.3 10^3/ul (4.8-10.8)
[2018-09-25 06:58] LABS: BASOPHILS % 0.4 % (0.0-2.0); EOSINOPHILS # 0.5 10^3/ul (0.0-0.5); EOSINOPHILS % 7.1 % (0.0-7.0); HEMATOCRIT 40.1 % (42.0-52.0); HEMOGLOBIN 12.6 g/dl (14.0-18.0); LYMPHOCYTES # 2.3 10^3/ul (0.8-2.9); LYMPHOCYTES % 32.1 % (15.0-51.0); MEAN CORPUSCULAR HEMOGLOBIN 28.3 pg (29.0-33.0); MEAN CORPUSCULAR HGB CONC 31.4 g/dl (32.0-37.0); MEAN CORPUSCULAR VOLUME 89.9 fl (82.0-101.0); MEAN PLATELET VOLUME 9.4 fl (7.4-10.4); MONOCYTE # 0.7 10^3/ul (0.3-0.9); MONOCYTES % 9.9 % (0.0-11.0); NEUTROPHIL # 3.6 10^3/ul (1.6-7.5); NEUTROPHILS % 49.8 % (39.0-77.0); PLATELET COUNT 303 10^3/UL (140-415); RED BLOOD COUNT 4.46 10^6/ul (4.70-6.10); RED CELL DISTRIBUTION WIDTH 13.2 % (11.5-14.5)
[2018-09-25 07:15] LABS: ALANINE AMINOTRANSFERASE 474 IU/L (13-69); ALBUMIN 3.6 g/dl (3.3-4.9); ALBUMIN/GLOBULIN RATIO 0.92; ALKALINE PHOSPHATASE 179 IU/L (42-121); ANION GAP 8 (5-13); ASPARTATE AMINO TRANSFERASE 328 IU/L (15-46); BILIRUBIN,INDIRECT 0.1 mg/dl (0-1.1); BILIRUBIN,TOTAL 0.1 mg/dl (0.2-1.3); BLOOD UREA NITROGEN 25 mg/dl (7-20); CALCIUM 9.1 mg/dl (8.4-10.2); CARBON DIOXIDE 29 mmol/L (21-31); CHLORIDE 105 mmol/L (97-110); CREATININE 0.58 mg/dl (0.61-1.24); Estimated GFR > 60 mL/min (>60); GLUCOSE 93 mg/dl (70-220); POTASSIUM 4.2 mmol/L (3.5-5.1); SODIUM 142 mmol/L (135-144); TOTAL PROTEIN 7.5 g/dl (6.1-8.1)
[2018-09-25] MEDS: ZYVOX 600 MG TAB PO ×2 (08:51→20:54)
[2018-09-25] MEDS: BACLOFEN 10 MG TAB PO ×3 (08:51→20:54)
[2018-09-25] MEDS: GABAPENTIN 300 MG CAP PO ×3 (08:51→20:54)
[2018-09-25] MEDS: LACTOBACILLUS RHAMNOSUS CAP PO ×2 (08:51→20:55)
[2018-09-26 06:48] LABS: ADD MAN DIFF? NO; HAAIG REFLEX REFLEX FILED
[2018-09-26 06:52] LABS: BASOPHILS % 0.4 % (0.0-2.0); EOSINOPHILS # 0.6 10^3/ul (0.0-0.5); EOSINOPHILS % 8.5 % (0.0-7.0); HEMATOCRIT 40.8 % (42.0-52.0); HEMOGLOBIN 12.6 g/dl (14.0-18.0); LYMPHOCYTES # 2.4 10^3/ul (0.8-2.9); LYMPHOCYTES % 31.8 % (15.0-51.0); MEAN CORPUSCULAR HEMOGLOBIN 28.1 pg (29.0-33.0); MEAN CORPUSCULAR HGB CONC 30.9 g/dl (32.0-37.0); MEAN CORPUSCULAR VOLUME 91.1 fl (82.0-101.0); MEAN PLATELET VOLUME 9.4 fl (7.4-10.4); MONOCYTE # 0.8 10^3/ul (0.3-0.9); MONOCYTES % 10.3 % (0.0-11.0); NEUTROPHIL # 3.6 10^3/ul (1.6-7.5); NEUTROPHILS % 48.2 % (39.0-77.0); PLATELET COUNT 315 10^3/UL (140-415); RED BLOOD COUNT 4.48 10^6/ul (4.70-6.10); RED CELL DISTRIBUTION WIDTH 13.5 % (11.5-14.5)
[2018-09-26 06:52] LABS: WHITE BLOOD COUNT 7.4 10^3/ul (4.8-10.8)
[2018-09-26 07:12] LABS: ALANINE AMINOTRANSFERASE 661 IU/L (13-69); ALBUMIN 3.6 g/dl (3.3-4.9); ALBUMIN/GLOBULIN RATIO 0.97; ALKALINE PHOSPHATASE 203 IU/L (42-121); ANION GAP 8 (5-13); ASPARTATE AMINO TRANSFERASE 313 IU/L (15-46); BLOOD UREA NITROGEN 27 mg/dl (7-20); CALCIUM 8.9 mg/dl (8.4-10.2); CARBON DIOXIDE 28 mmol/L (21-31); CHLORIDE 107 mmol/L (97-110); CREATININE 0.54 mg/dl (0.61-1.24); Estimated GFR > 60 mL/min (>60); GLUCOSE 107 mg/dl (70-220); SODIUM 143 mmol/L (135-144); TOTAL PROTEIN 7.3 g/dl (6.1-8.1)
[2018-09-26 07:43] LABS: HEPATITIS B SURFACE ANTIGEN NEGATIVE (NEGATIVE)
[2018-09-26 08:01] LABS: HEPATITIS B CORE ANTIBODY NEGATIVE (NEGATIVE); HEPATITIS C VIRAL ANTIBODY NEGATIVE (NEGATIVE)
[2018-09-26] MEDS: morphine 2 MG INJ IV ×4 (08:29→20:37)
[2018-09-26] MEDS: GABAPENTIN 300 MG CAP PO ×3 (08:30→20:28)
[2018-09-26] MEDS: LACTOBACILLUS RHAMNOSUS CAP PO ×2 (08:30→20:28)
[2018-09-26] MEDS: BACLOFEN 10 MG TAB PO ×3 (08:30→20:28)
[2018-09-26] MEDS: ZYVOX 600 MG TAB PO ×2 (08:30→20:28)
[2018-09-26] MEDS: ENOXAPARIN 40 MG/0.4 ML SYG SC (08:31)
[2018-09-26] MEDS: OXYCODONE/ACETAMINOPHEN (10/325) TAB PO ×4 (09:36→21:31)
[2018-09-27] MEDS: morphine 2 MG INJ IV ×5 (01:55→21:05)
[2018-09-27] MEDS: OXYCODONE/ACETAMINOPHEN (10/325) TAB PO ×5 (02:53→21:57)
[2018-09-27] MEDS: BACLOFEN 10 MG TAB PO ×3 (08:24→21:08)
[2018-09-27] MEDS: ZYVOX 600 MG TAB PO ×2 (08:24→21:08)
[2018-09-27] MEDS: LACTOBACILLUS RHAMNOSUS CAP PO ×2 (08:24→21:08)
[2018-09-27] MEDS: GABAPENTIN 300 MG CAP PO ×3 (08:24→21:07)
[2018-09-27] MEDS: ENOXAPARIN 40 MG/0.4 ML SYG SC (08:25)
[2018-09-28] MEDS: morphine 2 MG INJ IV ×6 (01:06→21:33)
[2018-09-28] MEDS: OXYCODONE/ACETAMINOPHEN (10/325) TAB PO ×5 (06:44→22:40)
[2018-09-28] MEDS: ENOXAPARIN 40 MG/0.4 ML SYG SC (09:00)
[2018-09-28] MEDS: GABAPENTIN 300 MG CAP PO ×3 (09:07→21:34)
[2018-09-28] MEDS: ZYVOX 600 MG TAB PO ×2 (09:07→21:34)
[2018-09-28] MEDS: LACTOBACILLUS RHAMNOSUS CAP PO ×2 (09:07→21:34)
[2018-09-28] MEDS: BACLOFEN 10 MG TAB PO ×3 (09:07→21:34)
[2018-09-29] MEDS: morphine LIQ (10 MG/5 ML) CUP PO ×2 (01:32→05:30)
[2018-09-29] MEDS: OXYCODONE/ACETAMINOPHEN (10/325) TAB PO ×5 (06:29→22:00)
[2018-09-29] MEDS: ENOXAPARIN 40 MG/0.4 ML SYG SC ×2 (09:00→09:16)
[2018-09-29] MEDS: ZYVOX 600 MG TAB PO ×2 (09:15→20:50)
[2018-09-29] MEDS: LACTOBACILLUS RHAMNOSUS CAP PO ×2 (09:15→20:49)
[2018-09-29] MEDS: BACLOFEN 10 MG TAB PO ×3 (09:15→20:49)
[2018-09-29] MEDS: GABAPENTIN 300 MG CAP PO ×3 (09:15→20:49)
[2018-09-29] MEDS ORDERED: NAPROXEN 500 MG TAB PO (15:30)
[2018-09-29] MEDS: oxyCODONE 5 MG TAB PO ×2 (16:10→20:50)
[2018-09-30] MEDS: LACTOBACILLUS RHAMNOSUS CAP PO ×2 (08:31→20:58)
[2018-09-30] MEDS: ZYVOX 600 MG TAB PO ×2 (08:31→20:59)
[2018-09-30] MEDS: GABAPENTIN 300 MG CAP PO ×3 (08:31→20:58)
[2018-09-30] MEDS: BACLOFEN 10 MG TAB PO ×3 (08:31→20:58)
[2018-09-30] MEDS: oxyCODONE 5 MG TAB PO ×4 (08:34→20:59)
[2018-09-30] MEDS: ENOXAPARIN 40 MG/0.4 ML SYG SC (08:37)
[2018-09-30] MEDS: OXYCODONE/ACETAMINOPHEN (10/325) TAB PO ×4 (09:55→23:01)
[2018-09-30] MEDS: ALTEPLASE (CATHFLO) 2 MG INJ CATHETER ×2 (23:01)
[2018-10-01] MEDS: morphine 2 MG INJ IV ×5 (03:20→23:18)
[2018-10-01] MEDS: BACLOFEN 10 MG TAB PO ×3 (08:43→20:41)
[2018-10-01] MEDS: ENOXAPARIN 40 MG/0.4 ML SYG SC (08:43)
[2018-10-01] MEDS: LACTOBACILLUS RHAMNOSUS CAP PO ×2 (08:43→20:41)
[2018-10-01] MEDS: ZYVOX 600 MG TAB PO ×2 (08:43→20:41)
[2018-10-01] MEDS: GABAPENTIN 300 MG CAP PO ×3 (08:43→20:41)
[2018-10-01] MEDS ORDERED: LIDOCAINE 2% (SDV) 5 ML INJ (11:24)
[2018-10-01] MEDS ORDERED: PROPOFOL 20 ML (11:24)
[2018-10-01] MEDS ORDERED: FENTAnyl 50 MCG/ML VIAL ×2 (11:24→12:51)
[2018-10-01] MEDS ORDERED: MIDAZOLAM 1 MG/ML 2 ML INJ (11:24)
[2018-10-01] MEDS ORDERED: VANCOMYCIN 1 GM (PMX) 250 ML (11:41)
[2018-10-01] MEDS ORDERED: FAMOTIDINE 20 MG INJ (11:52)
[2018-10-01] MEDS ORDERED: DEXAMETHASONE 4 MG/ML 5 ML INJ (11:52)
[2018-10-01] MEDS ORDERED: ONDANSETRON 4 MG INJ (11:52)
[2018-10-01] MEDS ORDERED: ALBUTEROL 0.083% (NEB) 2.5 MG/3 ML AMP HHN (12:30)
[2018-10-01] MEDS ORDERED: MIDAZOLAM 1 MG/ML 2 ML INJ IV (12:30)
[2018-10-01] MEDS ORDERED: LABETALOL HCL 20MG INJ IV (12:30)
[2018-10-01] MEDS ORDERED: HYDROmorphONE 1 MG/5 ML IV SYRINGE IV (12:30)
[2018-10-01] MEDS ORDERED: OXYCODONE/ACETAMINOPHEN (5/325) TAB PO ×2 (12:30)
[2018-10-01] MEDS: LIDOCAINE 1%/EPI (1:100,000) (MDV) 20 ML (12:36)
[2018-10-01] MEDS: MINERAL OIL LIGHT 10 ML VIAL (12:36)
[2018-10-01] MEDS: LIDOCAINE 1% (MPF) 30 ML INJ (12:37)
[2018-10-01] MEDS: POLYMYXIN/BACITRACIN 1L IRRIG (12:45)
[2018-10-01] MEDS: HYDROmorphONE 1 MG/5 ML IV SYRINGE IV ×3 (13:06→13:40)
[2018-10-01] MEDS: ONDANSETRON 4 MG INJ IV (14:01)
[2018-10-01] MEDS: MEPERIDINE 25 MG INJ IV (14:02)
[2018-10-01 17:00] LABS: ADD MAN DIFF? NO
[2018-10-01 17:01] LABS: WHITE BLOOD COUNT 9.9 10^3/ul (4.8-10.8)
[2018-10-01 17:01] LABS: BASOPHILS % 0.2 % (0.0-2.0); EOSINOPHILS # 0.1 10^3/ul (0.0-0.5); EOSINOPHILS % 0.6 % (0.0-7.0); HEMATOCRIT 41.7 % (42.0-52.0); HEMOGLOBIN 12.9 g/dl (14.0-18.0); LYMPHOCYTES # 0.9 10^3/ul (0.8-2.9); LYMPHOCYTES % 9.5 % (15.0-51.0); MEAN CORPUSCULAR HEMOGLOBIN 28.2 pg (29.0-33.0); MEAN CORPUSCULAR HGB CONC 30.9 g/dl (32.0-37.0); MEAN CORPUSCULAR VOLUME 91.2 fl (82.0-101.0); MEAN PLATELET VOLUME 9.2 fl (7.4-10.4); MONOCYTE # 0.2 10^3/ul (0.3-0.9); MONOCYTES % 1.6 % (0.0-11.0); NEUTROPHIL # 8.6 10^3/ul (1.6-7.5); NEUTROPHILS % 86.9 % (39.0-77.0); PLATELET COUNT 268 10^3/UL (140-415); RED BLOOD COUNT 4.57 10^6/ul (4.70-6.10); RED CELL DISTRIBUTION WIDTH 14.1 % (11.5-14.5)
[2018-10-02] MEDS: OXYCODONE/ACETAMINOPHEN (10/325) TAB PO ×6 (00:06→22:21)
[2018-10-02] MEDS: morphine 2 MG INJ IV ×3 (04:48→13:20)
[2018-10-02] MEDS: ZYVOX 600 MG TAB PO ×2 (08:35→20:15)
[2018-10-02] MEDS: LACTOBACILLUS RHAMNOSUS CAP PO ×2 (08:35→20:15)
[2018-10-02] MEDS: BACLOFEN 10 MG TAB PO ×3 (08:36→20:15)
[2018-10-02] MEDS: GABAPENTIN 300 MG CAP PO ×3 (08:37→20:15)
[2018-10-02] MEDS: ENOXAPARIN 40 MG/0.4 ML SYG SC ×2 (08:37→08:41)
[2018-10-03] MEDS: OXYCODONE/ACETAMINOPHEN (10/325) TAB PO ×3 (05:49→14:23)
[2018-10-03] MEDS: ENOXAPARIN 40 MG/0.4 ML SYG SC (09:00)
[2018-10-03] MEDS: ZYVOX 600 MG TAB PO (09:48)
[2018-10-03] MEDS: BACLOFEN 10 MG TAB PO ×2 (09:48→12:57)
[2018-10-03] MEDS: LACTOBACILLUS RHAMNOSUS CAP PO (09:48)
[2018-10-03] MEDS: GABAPENTIN 300 MG CAP PO ×2 (09:48→12:57)
== END 2018-10-03 17:22 | disposition home health service (06) | DRG 463 ==
LOC: E/R 10:25 → PP2 15:45
PROVIDERS: Internal Medicine
PROC: 05H633Z Insertion of Infusion Device into Left Subclavian Vein, Percutaneous Approach (ICD-10-PCS; 2018-09-23 11:00)
PROC: 0HRKX74 Replacement of Right Lower Leg Skin with Autologous Tissue Substitute, Partial Thickness, External Approach (ICD-10-PCS; principal; 2018-09-23 11:10)
PROC: 0HBKXZZ Excision of Right Lower Leg Skin, External Approach (ICD-10-PCS; 2018-09-23 11:10)
DX: M86.271 Subacute osteomyelitis, right ankle and foot (principal); L89.513 Pressure ulcer of right ankle, stage 3; L89.893 Pressure ulcer of other site, stage 3; T81.30XA Disruption of wound, unspecified, initial encounter; G82.20 Paraplegia, unspecified; G91.9 Hydrocephalus, unspecified; Z68.41 Body mass index [BMI] 40.0-44.9, adult; L89.159 Pressure ulcer of sacral region, unspecified stage; Q05.9 Spina bifida, unspecified; F12.10 Cannabis abuse, uncomplicated; Z72.0 Tobacco use; Z98.2 Presence of cerebrospinal fluid drainage device; E66.01 Morbid (severe) obesity due to excess calories; N31.2 Flaccid neuropathic bladder, not elsewhere classified; K76.0 Fatty (change of) liver, not elsewhere classified; G62.9 Polyneuropathy, unspecified; B95.62 Methicillin resistant Staphylococcus aureus infection as the cause of diseases classified elsewhere
CPT/HCPCS: 71045; 71555; 80053; 80202; 82565; 84520; 85025; 86704; 86709; 86803; 87081; 87340; 99285-25; G0378

== ENCOUNTER 2018-11-09 10:30 | Emergency (ER) | payer OTHER | END 2018-11-09 11:15 | disposition home or self-care (01) | LOC: E/R 10:30 | DX: N30.90 Cystitis, unspecified without hematuria (principal); Z91.040 Latex allergy status | CPT/HCPCS: 99283; Z7502 ==

== ENCOUNTER 2018-11-11 10:08 | Emergency (ER) | payer OTHER | END 2018-11-11 10:55 | disposition left against medical advice (07) | LOC: FTE 10:08 | DX: M79.604 Pain in right leg (principal); M79.605 Pain in left leg; Z87.891 Personal history of nicotine dependence; Z91.040 Latex allergy status | CPT/HCPCS: 99282; Z7502 ==

== ENCOUNTER 2018-11-12 09:39 | Emergency (ER) | payer OTHER ==
[2018-11-12] MEDS: ONDANSETRON 4 MG INJ IV ×2 (10:54→12:11)
[2018-11-12] MEDS: HYDROmorphONE 1 MG/ML SYG IV ×2 (10:55→12:11)
[2018-11-12 11:12] LABS: ADD MAN DIFF? NO
[2018-11-12 11:24] LABS: BASOPHILS % 0.3 % (0.0-2.0); EOSINOPHILS # 0.2 10^3/ul (0.0-0.5); EOSINOPHILS % 2.2 % (0.0-7.0); HEMATOCRIT 44.2 % (42.0-52.0); HEMOGLOBIN 14.5 g/dl (14.0-18.0); LYMPHOCYTES # 2.3 10^3/ul (0.8-2.9); LYMPHOCYTES % 24.7 % (15.0-51.0); MEAN CORPUSCULAR HEMOGLOBIN 28.4 pg (29.0-33.0); MEAN CORPUSCULAR HGB CONC 32.8 g/dl (32.0-37.0); MEAN CORPUSCULAR VOLUME 86.7 fl (82.0-101.0); MEAN PLATELET VOLUME 9.4 fl (7.4-10.4); MONOCYTE # 0.7 10^3/ul (0.3-0.9); MONOCYTES % 7.1 % (0.0-11.0); NEUTROPHILS % 65.5 % (39.0-77.0); PLATELET COUNT 372 10^3/UL (140-415); RED CELL DISTRIBUTION WIDTH 13.3 % (11.5-14.5)
[2018-11-12 11:24] LABS: WHITE BLOOD COUNT 9.1 10^3/ul (4.8-10.8)
[2018-11-12 11:35] LABS: ALANINE AMINOTRANSFERASE 22 IU/L (13-69); ALBUMIN 4.3 g/dl (3.3-4.9); ALBUMIN/GLOBULIN RATIO 1.13; ALKALINE PHOSPHATASE 116 IU/L (42-121); ANION GAP 13 (5-13); ASPARTATE AMINO TRANSFERASE 24 IU/L (15-46); BILIRUBIN,INDIRECT 0.6 mg/dl (0-1.1); BILIRUBIN,TOTAL 0.6 mg/dl (0.2-1.3); BLOOD UREA NITROGEN 13 mg/dl (7-20); CALCIUM 9.3 mg/dl (8.4-10.2); CARBON DIOXIDE 23 mmol/L (21-31); CHLORIDE 107 mmol/L (97-110); CREATININE 0.44 mg/dl (0.61-1.24); Estimated GFR > 60 mL/min (>60); GLUCOSE 103 mg/dl (70-220); POTASSIUM 4.3 mmol/L (3.5-5.1); SODIUM 143 mmol/L (135-144); TOTAL PROTEIN 8.1 g/dl (6.1-8.1)
[2018-11-12] MEDS: CLINDAMYCIN 900 MG/D5W (PMX) 50 ML IVPB (12:49)
[2018-11-12] MEDS: VANCOMYCIN 1 GM (PMX) 250 ML IVPB (13:34)
== END 2018-11-12 16:14 | disposition home or self-care (01) ==
LOC: E/R 09:39
DX: L03.115 Cellulitis of right lower limb (principal); R40.2142 Coma scale, eyes open, spontaneous, at arrival to emergency department; R40.2252 Coma scale, best verbal response, oriented, at arrival to emergency department; R40.2362 Coma scale, best motor response, obeys commands, at arrival to emergency department; Z91.040 Latex allergy status
CPT/HCPCS: 73610; 73610-RT; 80053; 85025; 87040-91; 96374; 96375; 96376; 99284-25

== ENCOUNTER 2018-11-15 14:10 | Emergency (ER) | payer OTHER | END 2018-11-15 16:31 | disposition home or self-care (01) | LOC: FTE 14:10 | DX: M79.604 Pain in right leg (principal); Z87.891 Personal history of nicotine dependence; Z91.040 Latex allergy status | CPT/HCPCS: 99282; Z7502 ==

== ENCOUNTER 2018-11-24 14:59 | Emergency (ER) | payer OTHER | END 2018-11-24 17:29 | disposition left against medical advice (07) | LOC: FTE 14:59 | DX: M79.661 Pain in right lower leg (principal); F17.210 Nicotine dependence, cigarettes, uncomplicated; Z91.040 Latex allergy status | CPT/HCPCS: 99282; Z7502 ==

== ENCOUNTER 2018-12-02 11:36 | Inpatient (IN) | payer OTHER ==
[2018-12-02] MEDS: CIPROFLOXACIN 400MG/D5W 200 ML IVPB (18:28)
[2018-12-02] MEDS ORDERED: ACETAMINOPHEN 325 MG TAB PO (19:00)
[2018-12-02] MEDS ORDERED: NACL 0.9% 3 ML SYG IV (19:00)
[2018-12-02] MEDS ORDERED: ONDANSETRON 4 MG INJ IV (19:00)
[2018-12-02] MEDS: SODIUM CHLORIDE 0.9% 1L BAG IV* (19:23)
[2018-12-02] MEDS: CLINDAMYCIN 900 MG/D5W (PMX) 50 ML IVPB (19:24)
[2018-12-02] MEDS ORDERED: HYDROmorphONE 1 MG/ML SYG (19:32)
[2018-12-02] MEDS: HYDROmorphONE 2 MG/ML SYG IV (19:33)
[2018-12-02 19:34] LABS: ADD MAN DIFF? NO
[2018-12-02] MEDS: ONDANSETRON 4 MG INJ IV (19:34)
[2018-12-02 19:39] LABS: BASOPHIL # 0.1 10^3/ul (0.0-0.1); BASOPHILS % 0.5 % (0.0-2.0); EOSINOPHILS # 0.5 10^3/ul (0.0-0.5); EOSINOPHILS % 4.1 % (0.0-7.0); HEMATOCRIT 47.9 % (42.0-52.0); HEMOGLOBIN 15.1 g/dl (14.0-18.0); LYMPHOCYTES % 27.5 % (15.0-51.0); MEAN CORPUSCULAR HEMOGLOBIN 27.8 pg (29.0-33.0); MEAN CORPUSCULAR HGB CONC 31.5 g/dl (32.0-37.0); MEAN CORPUSCULAR VOLUME 88.2 fl (82.0-101.0); MEAN PLATELET VOLUME 9.4 fl (7.4-10.4); MONOCYTES % 8.7 % (0.0-11.0); NEUTROPHIL # 6.5 10^3/ul (1.6-7.5); NEUTROPHILS % 58.7 % (39.0-77.0); PLATELET COUNT 344 10^3/UL (140-415); RED BLOOD COUNT 5.43 10^6/ul (4.70-6.10); RED CELL DISTRIBUTION WIDTH 13.3 % (11.5-14.5)
[2018-12-02 19:55] LABS: LACTIC ACID 1.7 mmol/L (0.5-2.0)
[2018-12-02 19:56] LABS: ALANINE AMINOTRANSFERASE 19 IU/L (13-69); ALBUMIN 4.3 g/dl (3.3-4.9); ALBUMIN/GLOBULIN RATIO 1.13; ALKALINE PHOSPHATASE 105 IU/L (42-121); ANION GAP 11 (5-13); ASPARTATE AMINO TRANSFERASE 19 IU/L (15-46); BILIRUBIN,INDIRECT 0.3 mg/dl (0-1.1); BILIRUBIN,TOTAL 0.3 mg/dl (0.2-1.3); BLOOD UREA NITROGEN 18 mg/dl (7-20); CALCIUM 9.4 mg/dl (8.4-10.2); CARBON DIOXIDE 25 mmol/L (21-31); CHLORIDE 111 mmol/L (97-110); CREATININE 0.61 mg/dl (0.61-1.24); Estimated GFR > 60 mL/min (>60); GLUCOSE 88 mg/dl (70-220); INR 0.91; POTASSIUM 3.6 mmol/L (3.5-5.1); PROTIME 12.4 Sec (11.9-14.9); SODIUM 147 mmol/L (135-144); TOTAL PROTEIN 8.1 g/dl (6.1-8.1)
[2018-12-02 19:57] LABS: PARTIAL THROMBOPLASTIN TIME 31.7 Sec (23.0-35.0)
[2018-12-02 20:07] LABS: TROPONIN-I < 0.012 ng/ml (0.000-0.120)
[2018-12-02] MEDS: HYDROmorphONE 1 MG/ML SYG IV (20:54)
[2018-12-02] MEDS: morphine 2 MG INJ IV (21:55)
[2018-12-02 22:24] LABS: LACTIC ACID 1.4 mmol/L (0.5-2.0)
[2018-12-02] MEDS: VANCOMYCIN 1 GM (PMX) 250 ML IVPB (22:24)
[2018-12-03] MEDS: OXYCODONE/ACETAMINOPHEN (5/325) TAB PO (00:02)
[2018-12-03] MEDS: morphine 2 MG INJ IV ×6 (02:05→21:19)
[2018-12-03] MEDS ORDERED: PENDING SANTYL ORDER FOR WOUND CARE XX (06:00)
[2018-12-03 06:21] LABS: ADD UMIC YES; UR ASCORBIC ACID NEGATIVE (NEGATIVE); UR BACTERIA MODERATE /HPF (NONE SEEN); UR BILIRUBIN (Dip) NEGATIVE (NEGATIVE); UR BLOOD (Dip) 1+ mg/dL (NEGATIVE); UR CLARITY SLIGHTLY CLOUDY (CLEAR); UR COLOR YELLOW (YELLOW); UR GLUCOSE (Dip) NEGATIVE (NEGATIVE); UR KETONES (Dip) NEGATIVE (NEGATIVE); UR LEUKOCYTE ESTERASE (Dip) TRACE Leu/ul (NEGATIVE); UR MUCUS FEW /HPF (NONE SEEN); UR NITRITE (Dip) POSITIVE (NEGATIVE); UR NONSQUAMOUS EPITHELIAL CELL 5 /HPF (NONE SEEN); UR RBC 10 /HPF (0-5); UR SPECIFIC GRAVITY (Dip) 1.017 (1.003-1.030); UR SQUAMOUS EPITHELIAL CELL FEW /HPF (FEW); UR TOTAL PROTEIN (Dip) NEGATIVE (NEGATIVE); UR UROBILINOGEN (Dip) NEGATIVE (NEGATIVE); UR WBC 77 /HPF (0-5)
[2018-12-03] MEDS ORDERED: VANCOMYCIN IV PER PHARMACY XX (07:00)
[2018-12-03] MEDS: HYDROmorphONE 1 MG/ML SYG IV (07:47)
[2018-12-03] MEDS: VANCOMYCIN HCL 2 GM in SOD CHLORIDE 0.9% 500 ML IVPB (10:34)
[2018-12-03] MEDS: morphine 4 MG/ML VIAL IV (13:50)
[2018-12-03] MEDS: OXYCODONE/ACETAMINOPHEN (10/325) TAB PO ×3 (15:25→23:51)
[2018-12-03 17:31] LABS: ADD MAN DIFF? NO
[2018-12-03 17:33] LABS: BASOPHILS % 0.2 % (0.0-2.0); EOSINOPHILS # 0.2 10^3/ul (0.0-0.5); EOSINOPHILS % 4.8 % (0.0-7.0); HEMATOCRIT 40.9 % (42.0-52.0); HEMOGLOBIN 13.3 g/dl (14.0-18.0); LYMPHOCYTES # 0.8 10^3/ul (0.8-2.9); LYMPHOCYTES % 15.1 % (15.0-51.0); MEAN CORPUSCULAR HEMOGLOBIN 28.1 pg (29.0-33.0); MEAN CORPUSCULAR HGB CONC 32.5 g/dl (32.0-37.0); MEAN CORPUSCULAR VOLUME 86.5 fl (82.0-101.0); MEAN PLATELET VOLUME 9.3 fl (7.4-10.4); MONOCYTE # 0.5 10^3/ul (0.3-0.9); MONOCYTES % 9.8 % (0.0-11.0); NEUTROPHIL # 3.5 10^3/ul (1.6-7.5); NEUTROPHILS % 69.7 % (39.0-77.0); PLATELET COUNT 249 10^3/UL (140-415); RED BLOOD COUNT 4.73 10^6/ul (4.70-6.10); RED CELL DISTRIBUTION WIDTH 13.1 % (11.5-14.5)
[2018-12-03 17:50] LABS: LACTIC ACID 1.2 mmol/L (0.5-2.0)
[2018-12-03 17:55] LABS: HEMOGLOBIN A1C 5.3 % (0-5.9)
[2018-12-03 18:06] LABS: ALANINE AMINOTRANSFERASE 741 IU/L (13-69); ALBUMIN 3.5 g/dl (3.3-4.9); ALBUMIN/GLOBULIN RATIO 0.97; ALKALINE PHOSPHATASE 209 IU/L (42-121); ANION GAP 7 (5-13); ASPARTATE AMINO TRANSFERASE 693 IU/L (15-46); BILIRUBIN,INDIRECT 0.9 mg/dl (0-1.1); BILIRUBIN,TOTAL 0.9 mg/dl (0.2-1.3); BLOOD UREA NITROGEN 14 mg/dl (7-20); CALCIUM 8.5 mg/dl (8.4-10.2); CARBON DIOXIDE 28 mmol/L (21-31); CHLORIDE 103 mmol/L (97-110); CHOLESTEROL 165 mg/dl (100-200); CREATININE 0.51 mg/dl (0.61-1.24); Estimated GFR > 60 mL/min (>60); GLUCOSE 104 mg/dl (70-220); HDL CHOLESTEROL 33 mg/dl (28-63); LDL CHOLESTEROL,CALCULATED 93 mg/dl; MAGNESIUM 1.4 mg/dl (1.7-2.5); SODIUM 138 mmol/L (135-144); TOTAL PROTEIN 7.1 g/dl (6.1-8.1); TRIGLYCERIDES 196 mg/dl (0-149)
[2018-12-03 18:08] LABS: C-REACTIVE PROTEIN 2.8 mg/dl (0.0-0.9)
[2018-12-03 18:39] LABS: ERYTHROCYTE SEDIMENTATION RATE 23 mm/Hr (0-15)
[2018-12-03 18:49] LABS: THYROID STIMULATING HORMONE 0.472 MIU/L (0.465-4.680)
[2018-12-03] MEDS: LACTOBACILLUS RHAMNOSUS CAP PO (21:17)
[2018-12-03] MEDS: VANCOMYCIN HCL 1.75 GM in SOD CHLORIDE 0.9% 500 ML IVPB (21:17)
[2018-12-04] MEDS: morphine 2 MG INJ IV (08:05)
[2018-12-04] MEDS: ENOXAPARIN 40 MG/0.4 ML SYG SC (08:45)
[2018-12-04] MEDS: OXYCODONE/ACETAMINOPHEN (10/325) TAB PO ×3 (08:45→22:55)
[2018-12-04] MEDS: LACTOBACILLUS RHAMNOSUS CAP PO ×2 (08:45→21:00)
[2018-12-04] MEDS: VANCOMYCIN HCL 1.75 GM in SOD CHLORIDE 0.9% 500 ML IVPB ×2 (10:25→21:00)
[2018-12-04] MEDS: morphine 4 MG/ML VIAL IM ×3 (13:00→20:59)
[2018-12-04] MEDS ORDERED: ONDANSETRON 4 MG INJ IV (13:30)
[2018-12-04] MEDS: BARIUM SULF 2% 450 ML BTL (BERRY SMOOTHIE) PO (14:00)
[2018-12-04 22:39] LABS: ADD MAN DIFF? NO
[2018-12-04 22:45] LABS: WHITE BLOOD COUNT 5.9 10^3/ul (4.8-10.8)
[2018-12-04 22:45] LABS: BASOPHILS % 0.3 % (0.0-2.0); EOSINOPHILS # 0.4 10^3/ul (0.0-0.5); EOSINOPHILS % 7.2 % (0.0-7.0); HEMATOCRIT 43.2 % (42.0-52.0); HEMOGLOBIN 14.1 g/dl (14.0-18.0); LYMPHOCYTES # 1.7 10^3/ul (0.8-2.9); LYMPHOCYTES % 28.1 % (15.0-51.0); MEAN CORPUSCULAR HEMOGLOBIN 27.9 pg (29.0-33.0); MEAN CORPUSCULAR HGB CONC 32.6 g/dl (32.0-37.0); MEAN CORPUSCULAR VOLUME 85.4 fl (82.0-101.0); MEAN PLATELET VOLUME 9.7 fl (7.4-10.4); MONOCYTE # 0.8 10^3/ul (0.3-0.9); MONOCYTES % 12.8 % (0.0-11.0); NEUTROPHILS % 50.7 % (39.0-77.0); PLATELET COUNT 209 10^3/UL (140-415); RED BLOOD COUNT 5.06 10^6/ul (4.70-6.10)
[2018-12-04 23:00] LABS: INR 0.88; PT RATIO 0.9
[2018-12-04 23:24] LABS: VANCOMYCIN,TROUGH 5.1 ug/ml (10.0-20.0)
[2018-12-04 23:36] LABS: ALANINE AMINOTRANSFERASE 529 IU/L (13-69); ALBUMIN 3.7 g/dl (3.3-4.9); ALBUMIN/GLOBULIN RATIO 0.94; ALKALINE PHOSPHATASE 308 IU/L (42-121); ANION GAP 9 (5-13); ASPARTATE AMINO TRANSFERASE 281 IU/L (15-46); BILIRUBIN,INDIRECT 0.3 mg/dl (0-1.1); BILIRUBIN,TOTAL 0.3 mg/dl (0.2-1.3); BLOOD UREA NITROGEN 17 mg/dl (7-20); CALCIUM 8.9 mg/dl (8.4-10.2); CARBON DIOXIDE 26 mmol/L (21-31); CHLORIDE 103 mmol/L (97-110); CREATININE 0.46 mg/dl (0.61-1.24); Estimated GFR > 60 mL/min (>60); GLUCOSE 98 mg/dl (70-220); MAGNESIUM 1.4 mg/dl (1.7-2.5); POTASSIUM 3.8 mmol/L (3.5-5.1); SODIUM 138 mmol/L (135-144); TOTAL PROTEIN 7.6 g/dl (6.1-8.1)
[2018-12-05] MEDS: morphine 4 MG/ML VIAL IM ×4 (01:15→18:24)
[2018-12-05] MEDS: ENOXAPARIN 40 MG/0.4 ML SYG SC (09:00)
[2018-12-05] MEDS: LACTOBACILLUS RHAMNOSUS CAP PO ×2 (09:22→21:16)
[2018-12-05] MEDS: OXYCODONE/ACETAMINOPHEN (10/325) TAB PO (11:18)
[2018-12-05] MEDS: CEPASTAT LOZENGE MT ×2 (11:21→14:43)
[2018-12-05] MEDS ORDERED: OXYCODONE/ACETAMINOPHEN (10/325) TAB PO (14:30)
[2018-12-05] MEDS: TRIMETHOPRIM/SULFAMETHOX (DS) TAB PO ×2 (14:39→21:16)
[2018-12-05] MEDS: GUAIFENESIN/DM 5ML CUP PO (14:46)
[2018-12-05] MEDS: MAGNESIUM OXIDE 400 MG TAB PO (21:16)
[2018-12-06] MEDS: MAGNESIUM OXIDE 400 MG TAB PO ×2 (08:01→21:09)
[2018-12-06] MEDS: TRIMETHOPRIM/SULFAMETHOX (DS) TAB PO ×2 (08:01→21:09)
[2018-12-06] MEDS: LACTOBACILLUS RHAMNOSUS CAP PO ×2 (08:02→21:09)
[2018-12-06] MEDS: morphine 4 MG/ML VIAL IM ×4 (08:02→22:17)
[2018-12-06] MEDS: GUAIFENESIN/DM 5ML CUP PO ×2 (08:14→13:54)
[2018-12-06] MEDS: CEPASTAT LOZENGE MT ×2 (08:14→13:54)
[2018-12-06] MEDS: ENOXAPARIN 40 MG/0.4 ML SYG SC (09:00)
[2018-12-06] MEDS ORDERED: oxyCODONE 5 MG TAB PO (14:30)
[2018-12-06] MEDS ORDERED: ALBUTEROL/IPRATROPIUM (NEB) 3 ML AMP HHN (15:00)
[2018-12-06] MEDS: oxyCODONE 5 MG TAB PO ×2 (15:05→21:15)
[2018-12-06] MEDS: ALBUTEROL/IPRATROPIUM (NEB) 3 ML AMP HHN (15:38)
[2018-12-06 17:16] LABS: ADD MAN DIFF? NO
[2018-12-06 17:20] LABS: BASOPHILS % 0.4 % (0.0-2.0); EOSINOPHILS # 0.6 10^3/ul (0.0-0.5); EOSINOPHILS % 6.6 % (0.0-7.0); HEMATOCRIT 45.2 % (42.0-52.0); HEMOGLOBIN 14.7 g/dl (14.0-18.0); LYMPHOCYTES # 2.6 10^3/ul (0.8-2.9); LYMPHOCYTES % 30.8 % (15.0-51.0); MEAN CORPUSCULAR HEMOGLOBIN 28.2 pg (29.0-33.0); MEAN CORPUSCULAR HGB CONC 32.5 g/dl (32.0-37.0); MEAN CORPUSCULAR VOLUME 86.8 fl (82.0-101.0); MEAN PLATELET VOLUME 9.8 fl (7.4-10.4); MONOCYTE # 0.9 10^3/ul (0.3-0.9); MONOCYTES % 10.9 % (0.0-11.0); NEUTROPHIL # 4.3 10^3/ul (1.6-7.5); NEUTROPHILS % 50.7 % (39.0-77.0); PLATELET COUNT 275 10^3/UL (140-415); RED BLOOD COUNT 5.21 10^6/ul (4.70-6.10); RED CELL DISTRIBUTION WIDTH 13.4 % (11.5-14.5)
[2018-12-06 17:20] LABS: WHITE BLOOD COUNT 8.5 10^3/ul (4.8-10.8)
[2018-12-06 17:39] LABS: ALANINE AMINOTRANSFERASE 546 IU/L (13-69); ALBUMIN 3.9 g/dl (3.3-4.9); ALBUMIN/GLOBULIN RATIO 0.97; ALKALINE PHOSPHATASE 360 IU/L (42-121); ANION GAP 10 (5-13); ASPARTATE AMINO TRANSFERASE 165 IU/L (15-46); BILIRUBIN,INDIRECT 0.4 mg/dl (0-1.1); BILIRUBIN,TOTAL 0.4 mg/dl (0.2-1.3); BLOOD UREA NITROGEN 26 mg/dl (7-20); CARBON DIOXIDE 23 mmol/L (21-31); CHLORIDE 106 mmol/L (97-110); CREATININE 0.73 mg/dl (0.61-1.24); Estimated GFR > 60 mL/min (>60); GLUCOSE 113 mg/dl (70-220); POTASSIUM 4.5 mmol/L (3.5-5.1); SODIUM 139 mmol/L (135-144); TOTAL PROTEIN 7.9 g/dl (6.1-8.1)
[2018-12-06 17:41] LABS: C-REACTIVE PROTEIN 0.9 mg/dl (0.0-0.9)
[2018-12-06 18:25] LABS: ERYTHROCYTE SEDIMENTATION RATE 29 mm/Hr (0-15)
[2018-12-06] MEDS: CEFEPIME 1GM/50 ML (PMX) 50 ML IVPB (21:00)
[2018-12-07] MEDS: LACTOBACILLUS RHAMNOSUS CAP PO ×2 (08:50→21:02)
[2018-12-07] MEDS: TRIMETHOPRIM/SULFAMETHOX (DS) TAB PO (08:50)
[2018-12-07] MEDS: MAGNESIUM OXIDE 400 MG TAB PO ×2 (08:50→21:02)
[2018-12-07] MEDS: CEFEPIME 1GM/50 ML (PMX) 50 ML IVPB ×2 (08:51→09:00)
[2018-12-07] MEDS: ENOXAPARIN 40 MG/0.4 ML SYG SC (08:53)
[2018-12-07] MEDS: morphine 4 MG/ML VIAL IM ×4 (09:01→21:04)
[2018-12-07] MEDS: GUAIFENESIN/DM 5ML CUP PO ×2 (09:16→13:44)
[2018-12-07] MEDS: CEPASTAT LOZENGE MT ×2 (09:19→13:44)
[2018-12-07] MEDS: oxyCODONE 5 MG TAB PO ×2 (11:30→18:29)
[2018-12-07] MEDS ORDERED: AMIKACIN IV PER PHARMACY XX (15:00)
[2018-12-07] MEDS: AMIKACIN 1,000 MG in SOD CHLORIDE 0.9% 150 ML IVPB (18:00)
[2018-12-07] MEDS: HYDROmorphONE 1 MG/ML SYG IM (23:12)
[2018-12-08] MEDS: morphine 4 MG/ML VIAL IM ×5 (00:22→23:54)
[2018-12-08] MEDS: ENOXAPARIN 40 MG/0.4 ML SYG SC (09:00)
[2018-12-08] MEDS: LACTOBACILLUS RHAMNOSUS CAP PO ×2 (09:15→20:00)
[2018-12-08] MEDS: MAGNESIUM OXIDE 400 MG TAB PO ×2 (09:15→20:00)
[2018-12-08] MEDS: GUAIFENESIN/DM 5ML CUP PO (12:38)
[2018-12-08] MEDS: CEPASTAT LOZENGE MT (12:38)
[2018-12-08] MEDS ORDERED: METHYLPREDNISOLONE (MEDROL) DOSE PACK PO (13:00)
[2018-12-08] MEDS: oxyCODONE 5 MG TAB PO ×2 (13:00→19:03)
[2018-12-08] MEDS: METHYLPREDNISOLONE 4 MG TAB PO (14:13)
[2018-12-08] MEDS: AMIKACIN 1,000 MG in SOD CHLORIDE 0.9% 150 ML IVPB (17:45)
[2018-12-08] MEDS: HYDROmorphONE 0.5 MG/0.5 ML SYG IM (21:35)
[2018-12-09] MEDS: METHYLPREDNISOLONE 4 MG TAB PO ×2 (07:30→13:00)
[2018-12-09] MEDS: MAGNESIUM OXIDE 400 MG TAB PO ×2 (07:48→21:08)
[2018-12-09] MEDS: LACTOBACILLUS RHAMNOSUS CAP PO ×2 (07:48→21:08)
[2018-12-09] MEDS: ENOXAPARIN 40 MG/0.4 ML SYG SC (07:48)
[2018-12-09] MEDS: morphine 4 MG/ML VIAL IM ×2 (08:34→13:27)
[2018-12-09 10:33] LABS: ADD MAN DIFF? NO
[2018-12-09 10:36] LABS: WHITE BLOOD COUNT 13.7 10^3/ul (4.8-10.8)
[2018-12-09 10:36] LABS: BASOPHILS % 0.3 % (0.0-2.0); EOSINOPHILS # 0.1 10^3/ul (0.0-0.5); EOSINOPHILS % 0.4 % (0.0-7.0); HEMATOCRIT 48.3 % (42.0-52.0); HEMOGLOBIN 15.3 g/dl (14.0-18.0); LYMPHOCYTES # 2.4 10^3/ul (0.8-2.9); LYMPHOCYTES % 17.9 % (15.0-51.0); MEAN CORPUSCULAR HEMOGLOBIN 28.1 pg (29.0-33.0); MEAN CORPUSCULAR HGB CONC 31.7 g/dl (32.0-37.0); MEAN CORPUSCULAR VOLUME 88.8 fl (82.0-101.0); MEAN PLATELET VOLUME 9.5 fl (7.4-10.4); MONOCYTE # 1.4 10^3/ul (0.3-0.9); MONOCYTES % 10.5 % (0.0-11.0); NEUTROPHIL # 9.5 10^3/ul (1.6-7.5); NEUTROPHILS % 69.8 % (39.0-77.0); PLATELET COUNT 305 10^3/UL (140-415); RED BLOOD COUNT 5.44 10^6/ul (4.70-6.10); RED CELL DISTRIBUTION WIDTH 13.5 % (11.5-14.5)
[2018-12-09 10:58] LABS: ANION GAP 10 (5-13); BLOOD UREA NITROGEN 33 mg/dl (7-20); CALCIUM 9.5 mg/dl (8.4-10.2); CARBON DIOXIDE 22 mmol/L (21-31); CHLORIDE 111 mmol/L (97-110); CREATININE 0.49 mg/dl (0.61-1.24); Estimated GFR > 60 mL/min (>60); GLUCOSE 124 mg/dl (70-220); MAGNESIUM 1.9 mg/dl (1.7-2.5); POTASSIUM 4.6 mmol/L (3.5-5.1); SODIUM 143 mmol/L (135-144)
[2018-12-09] MEDS ORDERED: morphine 4 MG/ML VIAL (17:32)
[2018-12-09] MEDS: morphine 4 MG/ML VIAL IV ×2 (17:50→21:48)
[2018-12-09] MEDS: AMIKACIN 1,000 MG in SOD CHLORIDE 0.9% 150 ML IVPB (17:50)
[2018-12-09] MEDS: oxyCODONE 5 MG TAB PO ×2 (18:28→22:40)
[2018-12-09] MEDS ORDERED: METHYLPREDNISOLONE 4 MG TAB PO ×2 (19:05→21:00)
[2018-12-10] MEDS: morphine 4 MG/ML VIAL IV ×5 (01:38→17:52)
[2018-12-10] MEDS: oxyCODONE 5 MG TAB PO ×3 (04:35→20:45)
[2018-12-10] MEDS: ENOXAPARIN 40 MG/0.4 ML SYG SC (09:00)
[2018-12-10] MEDS: MAGNESIUM OXIDE 400 MG TAB PO ×2 (09:15→20:34)
[2018-12-10] MEDS: LACTOBACILLUS RHAMNOSUS CAP PO ×2 (09:15→20:34)
[2018-12-10] MEDS: METHYLPREDNISOLONE 4 MG TAB PO ×4 (09:15→20:34)
[2018-12-10] MEDS: HEPARIN 1000 UNITS/ML 10 ML INJ (09:18)
[2018-12-10] MEDS: POLYMYXIN/BACITRACIN 1L IRRIG IRR (09:19)
[2018-12-10] MEDS: FENTAnyl 50 MCG/ML VIAL (09:19)
[2018-12-10] MEDS: CEFAZOLIN 1 GM/50 ML (PMX) 50 ML IVPB (09:19)
[2018-12-10] MEDS: IOHEXOL 300MG/ML 30 ML BTL (09:20)
[2018-12-10] MEDS ORDERED: METHYLPREDNISOLONE 4 MG TAB PO (21:00)
[2018-12-10] MEDS: CEFEPIME 2GM/50 ML IVPB ×2 (21:00)
[2018-12-11] MEDS ORDERED: METHYLPREDNISOLONE 4 MG TAB PO (21:00)
== END 2018-12-10 07:54 | disposition home health service (06) | DRG 637 ==
LOC: E/R 11:36 → PP2 18:58
PROC: 0JH63XZ Insertion of Tunneled Vascular Access Device into Chest Subcutaneous Tissue and Fascia, Percutaneous Approach (ICD-10-PCS; principal; 2018-12-09)
PROC: 02H633Z Insertion of Infusion Device into Right Atrium, Percutaneous Approach (ICD-10-PCS; 2018-12-09)
DX: E11.69 Type 2 diabetes mellitus with other specified complication (principal); L89.153 Pressure ulcer of sacral region, stage 3; L89.893 Pressure ulcer of other site, stage 3; N39.0 Urinary tract infection, site not specified; G82.20 Paraplegia, unspecified; L97.319 Non-pressure chronic ulcer of right ankle with unspecified severity; M86.161 Other acute osteomyelitis, right tibia and fibula; M86.661 Other chronic osteomyelitis, right tibia and fibula; Q05.9 Spina bifida, unspecified; L08.9 Local infection of the skin and subcutaneous tissue, unspecified; F17.200 Nicotine dependence, unspecified, uncomplicated; E11.622 Type 2 diabetes mellitus with other skin ulcer; M70.61 Trochanteric bursitis, right hip; J98.8 Other specified respiratory disorders; B96.4 Proteus (mirabilis) (morganii) as the cause of diseases classified elsewhere; Z98.2 Presence of cerebrospinal fluid drainage device
CPT/HCPCS: 36561; 71045; 72170; 72192; 73510; 73550; 73718; 73721; 74182; 76705; 76942; 80048; 80053; 80061; 80202; 81001; 83036; 83605; 83735; 84145; 84443; 84484; 85025; 85610; 85651; 85730; 86140; 87040-91; 87081; 87086; 93005; 93922; 94664; 96374; 99285-25